=== PATIENT | male | born 1995 | race Caucasian/White ===

== ENCOUNTER 2016-12-28 13:33 | Emergency (ER) | payer MEDICAID ==
[~2016-12-28] VITALS: Ht 175.3 cm; Wt 54.9 kg
[~2016-12-28 13:33] MED LIST: ALBUTEROL-200 PUFFS/ IH; AMOXICOT500 MG PO; AVPAK AZITHROM250 MG PO; AZO-STANDARD95 MG PO; BENZONATATE200 MG PO; CIPRO 500MG TA500 MG PO; CYCLOBENZAPRINE10 M1 OR; FLEXERIL10 MG PO; IBUPROFEN200 MG PO; KENALOG TP; LORTAB 5/3251 TAB PO; LORTAB 5/500 501 TAB PO; MEDROL 4MG TABLE4 MG PO; MEDROL 4MG. DOSE4 MG PO; NEXIUM40 MG PO; NOMEDS *; PHENERGAN 25MG.25 M1 PO; PREDNISONE 10MG10 MG PO; PROAIR HFA0.09 MG/AC INH; PROMETHAZINE D473 ML PO; PROTONIX20 MG PO; PYRIDIUM200 M2 PO; RANITIDINE HCL150 MG PO; SILVADENE CR 4400 GM EX; SULFAMETHOXAZOL1 TA6 PO; TESSALON PERLE100 MG PO; ULTRAM50 MG PO; VALACYCLOVIR HYD1 GM PO; VOLTAREN75 MG PO; VYVANSE40 MG PO; ZITHROMAX Z PA250 MG PO; ZYRTEC 10MG TAB10 MG PO
[2016-12-28] MEDS ORDERED: ACETAMINOPHEN-O1 TAB PO (13:47)
[2016-12-28] MEDS ORDERED: TOVIAZ8 MG PO (13:47)
[2016-12-28] MEDS ORDERED: MIXED AMPHETAMI30 M1 PO (13:47)
--- NOTE | 2016-12-28 14:00 | Emergency Room Report ---
See Addendum History of Present Illness Time Seen by 1350 Presenting Problem in Triage Pt arrived:Walked Presenting Problem:PT REPORTS "SEVERE PAIN IN PRIVATE AREA" THAT BEGAN LASTNIGHT. PT STATES HAD A SCOPE PROCEDURE ON 12/18/16 R/T INTERSTITIAL CYSTITIS. PT STATES GENITAL AREA HAS BEEN SWOLLEN X2 DAYS. 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 Y Clinical Suspician of Infection? N Mental Status: 1 - Regular (Normal Baseline) Sepsis Risk:Severe Sepsis Risk Have you (or family members/close friends) recently traveled outside the [place]? N If Yes, where/when: Have you had exposure to infectious disease within the past month? N TB? Other? Specify: Comment Pt comes to the ED with complaints of severe pain in his private area that started last night. He had a cystoscopy on 12/18/[address] Hannah in [place] due to a diagnosis of Interstitial Cystitis and had bladder distended. He took Cipro for 3 days but last night he had some fever and now has severe pain in the tip of his penis. He is not sexually active and he rarely masturbates. He is on Pyridium and his urine is discolored from that Cardiac Chest Pain Chest pain indicative of cardiac No ALLERGIES Coded Allergies: codeine (Mild, 10/02/16) Home Medications Reported Medications Fesoterodine Fumarate (Toviaz) 8 MG PO QHS DEXTROAMPHETAMINE/AMPHETAMINE (Dextroamp-Amphet ER 30 MG Cap) 30 MG PO DAILY #30 OXYCODONE HCL/ACETAMINOPHEN (Oxycodone-Acetaminophen 5-325) 1 TAB PO Q6HP PRN POST OP PAIN #20 PHENAZOPYRIDINE HCL (Phenazopyridine HCl) 100 MG PO TIDP PRN URINATION #15 History Medical History General CAD? No Angina: No [place]: No Hypertension? No Hyperlipidemia? No CHF? No DVT? No PE? No COPD? No Asthma? Yes Anemia? No GERD? No Gastric ulcers? No GI Bleed? No Hernia? No Thyroid Problems? No Hypothyroidism? No CVA? No Seizures? No Diabetes? No Renal Insuffiency? No End Stage Renal Disease? No UTI? Yes Stones? Yes BPH? No GB Disease: No Nephritic Syndrome? No Asplenia? No Hepatitis? No Sickle Cell Disease? No Arthritis? No Migraines? No Cataracts? No Glaucoma? No MRSA? Yes HIV? No TB? No Anxiety? No Depression? No Cancer? No More? No Additional hx: INTERSTITIAL CYSTITIS Immunization Hx DT/Tetanus Unknown Flu NEVER Pneumonia NEVER Surgical Hx Previous Surgery?Y ENDOSCOPE COLONOSCOPY STENTS FOR KIDNEY STONE RIGHT SHOULDER Family History Family Hx Diabetes Yes CAD No Hypertension Yes Hyperlipidemia No Cancer Yes TB No Social History Smoking Hx Smoker: Current Some Day Smoker Tobacco: Yes Type Cigarettes Packs/day < 1 Pack Alcohol Alcohol: No Review of Systems All Other Systems Reviewed and Negative Constitutional see HPI Genitourinary see HPI. Physical Exam Vital Signs Vital Signs Date Time Temp Pulse Resp B/P Pulse O2 O2 Flow FiO2 Ox Delivery Rate 12/28 1338 98.4 137 24 144/90 98 - WBC >12,000 or <4,000 or 10% bands? 2 or more SIRS Criteria Met? B/P:144/90 MAP:108 Creatinine >2.0? UA output<0.5ml/kg/hr for 2 hrs? Platelet count >100,000? Lactate >2.0mmol/1? INR >1.2 or PTT > than 60 sec? Evidence of Organ Dysfunction? Provider documented clinical suspician of infection? N Sepsis Criteria Count: 3 Sepsis Risk: Severe Sepsis Risk General Appearance normal appearance, WD/WN, no apparent distress Respiratory Status No: respiratory distress. Cardiovascular normal exam, regular rate/rhythm Male Genitalia two small excoriated areas near the urethra. 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 No Results/Orders Laboratory Tests 12/28/16 1417: Sodium 139, Potassium 3.7, Chloride 100, Carbon Dioxide 27, BUN 6 L, Creatinine 1.0, Estimated Creat Clear 90, Estimated GFR (MDRD) 93, Glucose 106, Calcium 9.5 , Total Bilirubin 0.6, AST 15, ALT 20, Alkaline Phosphatase 90, Total Protein 7.5, Albumin 4.4, Globulin 3.1, Albumin/Globulin Ratio 1.4, WBC 6.6, RBC 4.43 L , Hgb 13.8 L, Hct 38.5 L, MCV 86.7, RDW 12.7, Plt Count 286, MPV 5.4 L, Gran % 63.2, Gran # 4.2, Lymphocytes % 31.5, Monocytes % 3.8, Eosinophils % 1.1, Basophils % 0.4, Lymphocytes # 2.1, Monocytes # 0.3, Eosinophils # 0.1, Basophils # 0.0, PUBS MCHC 35.8 H, MCH 31.1 12/28/16 1351: Lactic Acid Cancelled 12/28/16 1350: Urine Color VARGAS, Urine Appearance CLEAR, Urine pH 6.5, Ur Specific [place] 1.015, Urine Protein 1+ H, Urine Ketones NEGATIVE, Urine Blood NEGATIVE, Urine Nitrate POSITIVE H, Urine Bilirubin NEGATIVE, Urine Urobilinogen 4.0, Ur Leukocyte Esterase NEGATIVE, Urine WBC OCC, Urine Bacteria 4+, Urine Mucus 3+, Urine Glucose TRACE H Current Medication Orders Sig/Marlyn Start time Last Medication Dose Route Stop Time Status Admin Sodium Chloride 10 ML PRN PRN 12/28 1400 AC IV 12/29 1350 Orders Procedure Date/time Status URINALYSIS/COMPLETE 12/28 1408 Complete IV SALINE LOCK 12/28 1351 Active CULTURE, BLOOD 12/28 1351 Active CBC WITH AUTO DIFF 12/28 135 Complete CHEM 12 PROFILE 12/28 1351 Complete CULTURE, URINE 12/28 1350 Active Departure Departure Time of Disposition 1501 Disposition DC Home or Self Care(routine) Clinical Impression Primary Impression: Cystitis without hematuria Secondary Impressions: Interstitial cystitis Condition STABLE Referrals Ifrah THRASHER,Norberto Gu (Family): 3 Days-Call Office Patient Instructions Acute Cystitis, DI for Acute Cystitis, DI for Interstitial Cystitis, Interstitial Cystitis Additional Instructions Use antibiotics and followup with PCP in 3 to 4 days to recheck Urine Discharge Counseling Counseled pt/family regarding diagnosis, test results, medications/RX, home care, follow up needs Prescriptions Current Visit Scripts CEFDINIR (Cefdinir) 300 MG PO BID #20 CAP ED Critical Care Critical Care No If Critical Care minutes are documented, the time involved in the performance of seperately reportable procedures was not counted toward critical care time documented. I directly delivered medical care to this critically ill and/or injured patient. Timely evaluation and treatment was necessary to address the significant organ system(s) dysfunction present in this patient. at [id number]
[2016-12-28 14:18] LABS: URINE BILIRUBIN - DIPSTICK NEGATIVE (NEG); URINE BLOOD NEGATIVE (NEG)
[2016-12-28] MEDS ORDERED: PHENAZOPYRIDIN100 M1 PO (14:25)
[2016-12-28 14:31] LABS: HEMOGLOBIN 13.8 g/dL (14.1-18.0); LYMPH # 2.1 K/mm3 (0.7-4.5); LYMPH % 31.5 % (10-50)
[2016-12-28] MEDS ORDERED: CEFDINIR 300MG300 MG PO (15:03)
[2016-12-28 16:21] VITALS: BP 145/100
== END 2016-12-28 16:24 | disposition home or self-care (01) ==
LOC: ER 13:33
PROVIDERS: General Practice
DX: N30.10 Interstitial cystitis (chronic) without hematuria (principal)

== ENCOUNTER 2017-01-25 13:05 | Emergency (ER) | payer MEDICAID ==
[~2017-01-25] VITALS: Ht 175.3 cm; Wt 54.0 kg
[~2017-01-25 13:05] MED LIST changes: +ACETAMINOPHEN-O1 TAB PO; +CEFDINIR 300MG300 MG PO; +MIXED AMPHETAMI30 M1 PO; +PHENAZOPYRIDIN100 M1 PO; +TOVIAZ8 MG PO
[2017-01-25] MEDS ORDERED: ZOLPIDEM 10MG T10 MG PO (13:20)
[2017-01-25] MEDS ORDERED: CYCLOBENZAPRINE10 M1 OR (13:21)
--- NOTE | 2017-01-25 13:57 | RADIOLOGY REPORT PS360 ---
CT HEAD W/O CONTRAST INDICATION: Right-sided facial numbness, previous CT scan of brain 04/04/2014 Routine axial images for brain followed by additional post-processing axial bone window images. Axial CT scanning from the base of the skull through the vertex to evaluate the brain was performed. Subsequent post processing 2-D CT bone windows were submitted to PACS and are useful to evaluate calvarium, visualize portions of paranasal sinuses, mastoids and base of skull. Multiaxial scans are obtained from the base of the skull to the vertex and performed without contrast. The base of the skull appeared normal. The ventricular system was normal. There was no ischemic infarct or bleed and there were no extra-axial fluid collections. The bony calvarium appeared intact. IMPRESSION: Negative noncontrast CT scan of the brain.
--- NOTE | 2017-01-25 14:09 | Emergency Room Report ---
History of Present Illness Time Seen by 1314 Presenting Problem in Triage Pt arrived:Walked Presenting Problem:RIGHT ARM MUSCLE SPASM AND PAIN SINCE THURSDAY AT 1730. ALSO STATES HE HAS NUMBNESS TO THE RIGHT SIDE OF FACE ALSO. HE SAYS HE MAY BE HAVING A STROKE. 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 N Clinical Suspician of Infection? N Mental Status: 1 - Regular (Normal Baseline) Sepsis Risk:Possible Sepsis Risk Have you (or family members/close friends) recently traveled outside the [place]? N If Yes, where/when: Have you had exposure to infectious disease within the past month? N TB? Other? Specify: Comment The patient complains of numbness, weakness and pain in his RIGHT arm and numbness of the RIGHT side of his face. He says that he had been laying on the couch on Thursday night 2 days ago when the symptoms developed. He had been laying for a couple of hours and noticed that his RIGHT hand felt numb, particularly the middle, ring, and small fingers and when he tried to move his arm it was weak from his shoulder down. The numbness improved after a couple of hours and he could move it but then he noticed that he has pain in his RIGHT elbow in the area of the lateral epicondyles whenever he tries to move his hand and wrist. He says an hour after the symptoms developed he developed some numbness in the RIGHT side of his face which has been coming and going, waxing and waning. She' ll disturbance, no speech disturbance. He says his RIGHT leg felt numb for a few seconds this morning, but otherwise his leg is not affected. ALLERGIES Coded Allergies: doxycycline (Intermediate, 01/25/17) codeine (Mild, 10/02/16) Home Medications Reported Medications DEXTROAMPHETAMINE/AMPHETAMINE (Dextroamp-Amphet ER 30 MG Cap) 30 MG PO DAILY #30 Zolpidem Tartrate (Zolpidem 10MG) 10 MG PO QHS #30 Cyclobenzaprine Hcl 10 MG OR PRN PRN MIGRAINES #30 History Medical History General CAD? No Angina: No [place]: No Hypertension? No Hyperlipidemia? No CHF? No DVT? No PE? No COPD? No Asthma? Yes Anemia? No GERD? No Gastric ulcers? No GI Bleed? No Hernia? No Thyroid Problems? No Hypothyroidism? No CVA? No Seizures? No Diabetes? No Renal Insuffiency? No End Stage Renal Disease? No UTI? Yes Stones? Yes BPH? No GB Disease: No Nephritic Syndrome? No Asplenia? No Hepatitis? No Sickle Cell Disease? No Arthritis? No Migraines? No Cataracts? No Glaucoma? No MRSA? Yes HIV? No TB? No Anxiety? No Depression? No Cancer? No More? Yes Additional hx: ADHD INTERSTITIAL CYSTITIS Immunization Hx Ped.Immunizations UTD Yes DT/Tetanus Unknown Flu NEVER Pneumonia NEVER Surgical Hx Previous Surgery?Y ENDOSCOPE COLONOSCOPY STENTS FOR KIDNEY STONE RIGHT SHOULDER CYSTOSCOPE Family History Family Hx Diabetes Yes CAD No Hypertension Yes Hyperlipidemia No Cancer Yes TB No Social History Smoking Hx Smoker: Current Every Day Smoker Tobacco: Yes Type N/A Packs/day N/A Alcohol Alcohol: No Review of Systems All Other Systems Reviewed and Negative Constitutional denies fever Eyes denies blindness, denies blurred vision Musculoskeletal muscle pain (see hpi), denies neck pain Psychiatric/Neurological denies headache, numbness, weakness Physical Exam Vital Signs Vital Signs Date Time Temp Pulse Resp B/P Pulse O2 O2 Flow FiO2 Ox Delivery Rate 01/25 1851 98.1 108 18 131/92 99 01/25 1837 18 01/25 1821 118 22 140/89 97 01/25 1752 120 22 152/87 97 01/25 1658 112 22 142/87 97 01/25 1543 122 22 149/94 97 01/25 1448 100 22 154/103 97 01/25 1400 138 22 157/93 99 01/25 1309 98.2 132 22 149/98 99 General Appearance WD/WN, anxious Eye Exam - bilateral eye normal exam, bilateral eye PERRL, bilateral eye EOMI Ear, Nose, Throat hearing grossly normal, normal ENT inspection Neck normal inspection, non-tender, supple, full range of motion Respiratory Status Yes: trachea midline, chest symmetrical, non tender chest. No: respiratory distress. Lung Sounds bilateral: normal breath sounds, lungs clear. Cardiovascular no peripheral edema, no gallop, no JVD, no murmur, no rub, normal peripheral pulses, tachycardia Peripheral Pulses Pulses normal Yes Gastrointestinal normal bowel sounds, normal exam, non tender, soft, no organomegaly Back normal inspection, no CVA tenderness, no vertebral tenderness Extremities tenderness in the region of his RIGHT elbow lateral epicondyle. 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 Mental status anxious Skin intact, normal color, warm/dry Medical Decision Making LABS/Meds/Orders Pt receiving controlled substance in ED? No Results/Orders Laboratory Tests 01/25/17 1450: Sodium 132 L, Potassium 4.0, Chloride 99, Carbon Dioxide 27, BUN 7, Creatinine 0.8, Estimated Creat Clear 111, Estimated GFR (MDRD) 121, Glucose 107 H, Calcium 9.4, Total Bilirubin 0.7, AST 14 L, ALT 18, Alkaline Phosphatase 75, Total Protein 7.3, Albumin 4.5, Globulin 2.8, Albumin/Globulin Ratio 1.6, TSH 1.35, Thyroxine (T4) 6.8, WBC 6.5, RBC 4.74, Hgb 13.9 L, Hct 41.2 L, MCV 87.0, RDW 12.6, Plt Count 242, MPV 5.4 L, Gran % 66.4, Gran # 4.3, Lymphocytes % 27.7 , Monocytes % 5.0, Eosinophils % 0.7, Basophils % 0.2, Lymphocytes # 1.8, Monocytes # 0.3, Eosinophils # 0.1, Basophils # 0.0, PUBS MCHC 33.6, MCH 29.2 Current Medication Orders Sig/Marlyn Start time Last Medication Dose Route Stop Time Status Admin Ketorolac 0 .STK-MED ONE 01/25 1834 DC Tromethamine .ROUTE Ketorolac 30 MG ONCE ONE 01/25 1800 DC 01/25 Tromethamine IV 01/25 1801 1837 Loperamide HCl 0 .STK-MED ONE 01/25 1614 DC PO Loperamide HCl 2 MG ONCE ONE 01/25 1515 DC 01/25 PO 01/25 1516 1615 Sodium Chloride 10 ML PRN PRN 01/25 1430 DCD IV 01/26 1425 Orders Procedure Date/time Status DIET-NOTHING BY MOUTH 01/25 D Active IV SALINE LOCK 01/25 142 Active THYROID STIMULATING HORMONE 01/25 142 Complete THYROXINE (T4) 01/25 1425 Complete CBC WITH AUTO DIFF 01/25 1425 Complete CHEM 12 PROFILE 01/25 1425 Complete 12 LEAD EKG-ROSASON (INITIAL) 01/25 1355 Active ELECTROCARDIOGRAM REQUEST 01/[address] HEAD REQ 01/25 1323 Complete CM/EKG CM/EKG Comments EKG interpreted by Eduardo Au MD: Rhythm: sinus tachycardia Rate: 139 [place]: normal Ectopy: none Conduction: normal ST Segment Changes: none T Wave Changes: none Q Waves: none No evidence of acute ischemia or injury XRAY/CT/US XRAY/CT/US CT head CT interpretation by discussed w/radiologist CT Results normal/NAD Progress - 3:10 PM: Case discussed with Dr. Zapien, medical secretary receptionist for Dr. Glynn. She does not feel that the hospitalist at [facility] would admit him based on his current findings, but he could be transferred to the emergency department for neurological evaluation. I discussed this with the patient. He says his mother is already in [place] at [facility] and wants him transferred there. I will contact emergency Department at [facility] to try to arrange transfer. I then discussed the case with Dr. Liu, emergency physician at [facility] who states that I must talk to neurology first. I spoke with Dr. Hodges, neurologist on-call, who accepts the patient, but feels he could be admitted for 23 hour observation under the hospitalist. Hospitalist is Dr. Haskins. Departure Departure Disposition DC/XFER from [facility] Clinical Impression Primary Impression: Numbness and tingling of right face Secondary Impressions: Numbness and tingling of right upper extremity, Right arm pain, Right arm weakness Condition STABLE ED Critical Care Critical Care No at [id number]
--- NOTE | 2017-01-25 14:09 | Emergency Room Report ---
History of Present Illness Time Seen by 1314 Presenting Problem in Triage Pt arrived:Walked Presenting Problem:RIGHT ARM MUSCLE SPASM AND PAIN SINCE THURSDAY AT 1730. ALSO STATES HE HAS NUMBNESS TO THE RIGHT SIDE OF FACE ALSO. HE SAYS HE MAY BE HAVING A STROKE. 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 N Clinical Suspician of Infection? N Mental Status: 1 - Regular (Normal Baseline) Sepsis Risk:Possible Sepsis Risk Have you (or family members/close friends) recently traveled outside the [place]? N If Yes, where/when: Have you had exposure to infectious disease within the past month? N TB? Other? Specify: Comment The patient complains of numbness, weakness and pain in his RIGHT arm and numbness of the RIGHT side of his face. He says that he had been laying on the couch on Thursday night 2 days ago when the symptoms developed. He had been laying for a couple of hours and noticed that his RIGHT hand felt numb, particularly the middle, ring, and small fingers and when he tried to move his arm it was weak from his shoulder down. The numbness improved after a couple of hours and he could move it but then he noticed that he has pain in his RIGHT elbow in the area of the lateral epicondyles whenever he tries to move his hand and wrist. He says an hour after the symptoms developed he developed some numbness in the RIGHT side of his face which has been coming and going, waxing and waning. She' ll disturbance, no speech disturbance. He says his RIGHT leg felt numb for a few seconds this morning, but otherwise his leg is not affected. ALLERGIES Coded Allergies: doxycycline (Intermediate, 01/25/17) codeine (Mild, 10/02/16) Home Medications Reported Medications DEXTROAMPHETAMINE/AMPHETAMINE (Dextroamp-Amphet ER 30 MG Cap) 30 MG PO DAILY #30 Zolpidem Tartrate (Zolpidem 10MG) 10 MG PO QHS #30 Cyclobenzaprine Hcl 10 MG OR PRN PRN MIGRAINES #30 History Medical History General CAD? No Angina: No [place]: No Hypertension? No Hyperlipidemia? No CHF? No DVT? No PE? No COPD? No Asthma? Yes Anemia? No GERD? No Gastric ulcers? No GI Bleed? No Hernia? No Thyroid Problems? No Hypothyroidism? No CVA? No Seizures? No Diabetes? No Renal Insuffiency? No End Stage Renal Disease? No UTI? Yes Stones? Yes BPH? No GB Disease: No Nephritic Syndrome? No Asplenia? No Hepatitis? No Sickle Cell Disease? No Arthritis? No Migraines? No Cataracts? No Glaucoma? No MRSA? Yes HIV? No TB? No Anxiety? No Depression? No Cancer? No More? Yes Additional hx: ADHD INTERSTITIAL CYSTITIS Immunization Hx Ped.Immunizations UTD Yes DT/Tetanus Unknown Flu NEVER Pneumonia NEVER Surgical Hx Previous Surgery?Y ENDOSCOPE COLONOSCOPY STENTS FOR KIDNEY STONE RIGHT SHOULDER CYSTOSCOPE Family History Family Hx Diabetes Yes CAD No Hypertension Yes Hyperlipidemia No Cancer Yes TB No Social History Smoking Hx Smoker: Current Every Day Smoker Tobacco: Yes Type N/A Packs/day N/A Alcohol Alcohol: No Review of Systems All Other Systems Reviewed and Negative Constitutional denies fever Eyes denies blindness, denies blurred vision Musculoskeletal muscle pain (see hpi), denies neck pain Psychiatric/Neurological denies headache, numbness, weakness Physical Exam Vital Signs Vital Signs Date Time Temp Pulse Resp B/P Pulse O2 O2 Flow FiO2 Ox Delivery Rate 01/25 1851 98.1 108 18 131/92 99 01/25 1837 18 01/25 1821 118 22 140/89 97 01/25 1752 120 22 152/87 97 01/25 1658 112 22 142/87 97 01/25 1543 122 22 149/94 97 01/25 1448 100 22 154/103 97 01/25 1400 138 22 157/93 99 01/25 1309 98.2 132 22 149/98 99 General Appearance WD/WN, anxious Eye Exam - bilateral eye normal exam, bilateral eye PERRL, bilateral eye EOMI Ear, Nose, Throat hearing grossly normal, normal ENT inspection Neck normal inspection, non-tender, supple, full range of motion Respiratory Status Yes: trachea midline, chest symmetrical, non tender chest. No: respiratory distress. Lung Sounds bilateral: normal breath sounds, lungs clear. Cardiovascular no peripheral edema, no gallop, no JVD, no murmur, no rub, normal peripheral pulses, tachycardia Peripheral Pulses Pulses normal Yes Gastrointestinal normal bowel sounds, normal exam, non tender, soft, no organomegaly Back normal inspection, no CVA tenderness, no vertebral tenderness Extremities tenderness in the region of his RIGHT elbow lateral epicondyle. 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 Mental status anxious Skin intact, normal color, warm/dry Medical Decision Making LABS/Meds/Orders Pt receiving controlled substance in ED? No Results/Orders Laboratory Tests 01/25/17 1450: Sodium 132 L, Potassium 4.0, Chloride 99, Carbon Dioxide 27, BUN 7, Creatinine 0.8, Estimated Creat Clear 111, Estimated GFR (MDRD) 121, Glucose 107 H, Calcium 9.4, Total Bilirubin 0.7, AST 14 L, ALT 18, Alkaline Phosphatase 75, Total Protein 7.3, Albumin 4.5, Globulin 2.8, Albumin/Globulin Ratio 1.6, TSH 1.35, Thyroxine (T4) 6.8, WBC 6.5, RBC 4.74, Hgb 13.9 L, Hct 41.2 L, MCV 87.0, RDW 12.6, Plt Count 242, MPV 5.4 L, Gran % 66.4, Gran # 4.3, Lymphocytes % 27.7 , Monocytes % 5.0, Eosinophils % 0.7, Basophils % 0.2, Lymphocytes # 1.8, Monocytes # 0.3, Eosinophils # 0.1, Basophils # 0.0, PUBS MCHC 33.6, MCH 29.2 Current Medication Orders Sig/Marlyn Start time Last Medication Dose Route Stop Time Status Admin Ketorolac 0 .STK-MED ONE 01/25 1834 DC Tromethamine .ROUTE Ketorolac 30 MG ONCE ONE 01/25 1800 DC 01/25 Tromethamine IV 01/25 1801 1837 Loperamide HCl 0 .STK-MED ONE 01/25 1614 DC PO Loperamide HCl 2 MG ONCE ONE 01/25 1515 DC 01/25 PO 01/25 1516 1615 Sodium Chloride 10 ML PRN PRN 01/25 1430 DCD IV 01/26 1425 Orders Procedure Date/time Status DIET-NOTHING BY MOUTH 01/25 D Active IV SALINE LOCK 01/25 142 Active THYROID STIMULATING HORMONE 01/25 142 Complete THYROXINE (T4) 01/25 1425 Complete CBC WITH AUTO DIFF 01/25 1425 Complete CHEM 12 PROFILE 01/25 1425 Complete 12 LEAD EKG-ROSASON (INITIAL) 01/25 1355 Active ELECTROCARDIOGRAM REQUEST 01/[address] HEAD REQ 01/25 1323 Complete CM/EKG CM/EKG Comments EKG interpreted by Eduardo Au MD: Rhythm: sinus tachycardia Rate: 139 [place]: normal Ectopy: none Conduction: normal ST Segment Changes: none T Wave Changes: none Q Waves: none No evidence of acute ischemia or injury XRAY/CT/US XRAY/CT/US CT head CT interpretation by discussed w/radiologist CT Results normal/NAD Progress - 3:10 PM: Case discussed with Dr. Zapien, personal protection specialist for Dr. Glynn. She does not feel that the hospitalist at [facility] would admit him based on his current findings, but he could be transferred to the emergency department for neurological evaluation. I discussed this with the patient. He says his mother is already in [place] at [facility] and wants him transferred there. I will contact emergency Department at [facility] to try to arrange transfer. I then discussed the case with Dr. Liu, emergency physician at [facility] who states that I must talk to neurology first. I spoke with Dr. Hodges, neurologist on-call, who accepts the patient, but feels he could be admitted for 23 hour observation under the hospitalist. Hospitalist is Dr. Haskins. Departure Departure Disposition DC/XFER from ER to [facility] Clinical Impression Primary Impression: Numbness and tingling of right face Secondary Impressions: Numbness and tingling of right upper extremity, Right arm pain, Right arm weakness Condition STABLE ED Critical Care Critical Care No at 3952
--- OUTSIDE RECORDS SUMMARY | 2017-01-25 14:10 | External Medical Summary Rpt ---
Author Author LALO [facility] Organization [facility] Address Unknown Phone Unavailable Care Team Providers Care Director Of Exhibit Development Name Role Phone SUNDAR VARELA PCP [phone] Encounter LALO FINCH [id number] Date(s): 12/16/16 - 12/18/16 [facility] [address] 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 Vital Signs Most recent 1 2 3 to oldest [Reference Range]: Temperature Temporal artery Temporal artery Temporal artery Source scanning (12/18/16 scanning (12/18/16 scanning (12/18/16 11:53 AM) 10:56 AM) 9:59 AM) Temperature Fahrenheit Fahrenheit Fahrenheit Mode (12/18/16 11:53 AM) (12/18/16 11:45 AM) (12/18/16 10:56 AM) Temperature, 98.1 Deg F 98.0 Deg F 98.2 Deg F Fahrenheit (12/18/16 11:53 AM) (12/18/16 11:45 AM) (12/18/16 10:56 AM) [96.8-99.7 Deg F] Clinical 36.7 Deg C 36.7 Deg C 36.8 Deg C Temperature, (12/18/16 11:53 AM) (12/18/16 11:45 AM) (12/18/16 10:56 AM) C Heart Rate, 87 bpm Apical (12/18/16 9:59 AM) [60-100 bpm] Heart Rate 91 bpm 92 bpm 103 bpm Monitored (12/18/16 11:53 AM) (12/18/16 11:45 AM) *HI* [60-100 bpm] (12/18/16 11:30 AM) Respiratory 18 Breaths/Min 16 Breaths/Min 16 Breaths/Min Rate [14-20 (12/18/16 11:53 AM) (12/18/16 11:45 AM) (12/18/16 11:30 AM) Breaths/Min] Blood Arm, left upper Pressure (12/18/16 9:59 AM) Location Blood 142/80 mmHg 137/83 mmHg 137/83 mmHg Pressure *HI* (12/18/16 11:45 AM) (12/18/16 11:30 AM) [90-140/60-9 (12/18/16 11:53 AM) 0 mmHg] Mean 106 106 88 Arterial (12/18/16 11:45 AM) (12/18/16 11:30 AM) (12/18/16 11:15 AM) Pressure (MAP)-BMDI Oxygen 96 % 96 % 100 % Saturation (12/18/16 11:53 AM) (12/18/16 11:45 AM) (12/18/16 11:30 AM) [94-100 %] Oxygen Room air Room air Room air Therapy Mode (12/18/16 11:53 AM) (12/18/16 11:45 AM) (12/18/16 11:30 AM) Oxygen Flow 2 Liter/Min 2 Liter/Min 2 Liter/Min Rate (12/18/16 11:10 AM) (12/18/16 11:05 AM) (12/18/16 11:00 AM) Height Stated Source (12/18/16 9:59 AM) Height Entry Weir Format (12/18/16 9:59 AM) Height/Lengt 5 ft h, GEORGIAN (12/18/16 9:59 AM) (ft) Height/Lengt 9 Inch h GEORGIAN (12/18/16 9:59 AM) CLINICALHEIG 175.26 cm HT (12/18/16 9:59 AM) Weight Standing scale Source (12/18/16 9:59 AM) Weight Entry Weir Format (12/18/16 9:59 AM) Weight 121 lb [place] lb (12/18/16 9:59 AM) CLINICALWEIG 55 kg HT (12/18/16 9:59 AM) Body Surface 1.67 m2 Area (BSA) (12/18/16 9:59 AM) Body Mass 17.9 kg/m2 Index *<LLOW* [19.0-24.0 (12/18/16 9:59 AM) kg/m2] [place] Body 70 kg Weight (12/18/16 9:59 AM) Problem List Condition Effective Status Health Informant Dates Status ADHD Active (attention deficit hyperactivit y disorder)(Co nfirmed) GERD Active (gastroesoph ageal reflux disease)(Con firmed) Rotator cuff Active injury(Confi rmed)1 Migraines(Co Active nfirmed) Sleep Active difficulties (Confirmed) 1right Allergies, Adverse Reactions, Alerts Substance Reaction Severity Status codeine shortness of breath Active doxycycline shortness of breath Active Medications amphetamine-dextroamphetamine (Adderall 30 mg oral tablet)1 Tab, Oral, Every Day, Refills: 0 eszopiclone (Lunesta 3 mg oral tablet)1 Tab, Oral, At Bedtime, As Needed, sleep, Refills: 0 famotidine (Pepcid)1 Tab, Oral, Every Day, As Needed, reflux, Refills: 0 gabapentin (gabapentin 300 mg oral capsule) 1 Cap, Oral, Three Times A Day, Refills: 0 Results No data available for this section Immunizations No data available for this section Procedures Procedure Date Related Body Site Diagnosis colonoscopy cystoscopy right rotator cuff repair Social History Social History Response Type Tobacco Use in Last 12 Months: Cigarettes. Packs/Tins Daily: 0.25. Last Used: pt states using an E-cigarette most of the time. Assessment and Plan No data available for this section Hospital Discharge Instructions No data available for this section
--- OUTSIDE RECORDS SUMMARY | 2017-01-25 14:10 | External Medical Summary Rpt ---
Author Author LALO [facility] Organization [facility] Address Unknown Phone Unavailable Care Team Providers Care Drilling Engineering Manager Name Role Phone SUNDAR VARELA PCP [phone] Encounter LALO FINCH [id number] Date(s): 12/16/16 - 12/18/16 [facility] [address] [place] [address]- Discharge Disposition: OP Self Care or Home [...] Stated Source (12/18/16 9:59 AM) Height Entry Gervais Format (12/18/16 9:59 AM) Height/Lengt 5 ft h, PALAUAN (12/18/16 9:59 AM) (ft) Height/Lengt 9 Inch h PALAUAN (12/18/16 9:59 AM) CLINICALHEIG 175.26 cm HT (12/18/16 9:59 AM) Weight Standing scale Source (12/18/16 9:59 AM) Weight Entry Gervais Format (12/18/16 9:59 AM) Weight 121 lb Martiniquais lb (12/18/16 9:59 AM) CLINICALWEIG 55 kg HT (12/18/16 9:59 AM) Body Surface 1.67 m2 Area (BSA) (12/18/16 9:59 AM) Body Mass 17.9 kg/m2 Index *<LLOW* [19.0-24.0 (12/18/16 9:59 AM) kg/m2] [place] Body 70 kg Weight (12/18/16 9:59 AM) [...]
--- OUTSIDE RECORDS SUMMARY | 2017-01-25 14:18 | External Medical Summary Rpt ---
Author Author , Organization [employer] Address Unknown Phone Unavailable Care Team Providers Care Night Filler Name Role Phone AYAD MENSAH, Unavailable Unavailable AYAD MENSAH JR, CHARLES F, Unavailable Unavailable TRAE ZAMORA JR ART, ART Unavailable Unavailable CHEN, CHEN Unavailable Unavailable CHEN ALL, CHEN ALL Unavailable Unavailable [facility] Unavailable Unavailable SERVICE, [facility] Unavailable Unavailable SERVICE, [facility], ZOHN N, Unavailable Unavailable [facility], ZOHN N MALU BRENDAN, Unavailable Unavailable MALU BRENDAN FRACISCO TORIBIOLAS, Unavailable Unavailable MALU, ABELARDO [facility], Unavailable Unavailable [facility] [place]available Un[place], [facility] [place] [facility] [place] [facility] [facility] BEHZAD LESLY, Unavailable Unavailable BEHZAD LESLY BEHZAD LESLY, Unavailable Unavailable [facility] Unavailable [facility], [facility] FRYMAN, FRYMAN Unavailable Unavailable FRYMAN EUG, FRYMAN Unavailable Unavailable EUG AKILA, AKILA Unavailable Unavailable AKILA NOLAN, AKILA Unavailable Unavailable NOLAN AKILA NOLAN, AKILA Unavailable Unavailable NOLAN MARITA RG S, Unavailable Unavailable MARITA RG ARNOLD H, Unavailable Unavailable JOSE MARIA CHEATHAM [facility] Unavailable Unavailable [facility], [facility] OCHOA AGUILAR, OCHOA AGUILAR Unavailable Unavailable [facility], Unavailable Unavailable [facility] Un[facility] Un[facility], [facility] Unavailable Unavailable MEDICAL G, [facility] Ayad Mesa MD, Unavailable Unavailable VELIA Jett MD, , Unavailable Unavailable [facility] GUIDO PABLO, Unavailable Unavailable GUIDO PABLO MD, Unavailable Unavailable Anne Rg MD [facility] Unavailable Unavailable SERVICES, [facility] LAB[facility], LABS Unavailable Unavailable LABS, LABS Unavailable Unavailable DRAKE MCGREGOR, Unavailable Unavailable DRAKE MCGREGOR MULBERRY, SANDRA T, Unavailable Unavailable MULBERRY, SANDRA T NADIG VID, NADIG VID Unavailable Unavailable MORGAN BELL, Unavailable Unavailable MORGAN BELL [facility] R [facility], Unavailable Unavailable DOMINQIUE R [facility] DOMINI[facility] R [facility], Unavailable Unavailable [facility] PAVEZ, PAVEZ Unavailable Unavailable AMBROSIO HUITRON, Unavailable Unavailable [facility] Unavailable Unavailable [facility] Unavailable Unavailable [id number] [id number], [facility] [id number] [address] [id number] ABELARDO GUDINO, Unavailable Unavailable ABELARDO GUDINO, Unavailable Unavailable ADELE NOELN, TAMANNA LEN MAT, Unavailable Unavailable LEN MAT HANEY DON, Unavailable Unavailable HANEY DON HANEY DON, Unavailable Unavailable HANEY DON HANEY, DON R, Unavailable Unavailable HANEY, DON R NORMAN DOLAN, Unavailable Unavailable NORMAN DOLAN, ROSS NEWSOME Unavailable Unavailable [facility], Unavailable Unavailable [facility] Unavailable Unavailable [address]591, [id number] DYLON DE LA FUENTE III, Unavailable Unavailable DYLON DE LA FUENTE III, E MD, Unavailable Unavailable Home GODFREY MD Purpose Continuity of Care Document - 05-08-2009 through 2016 Problems Code Diagnosis DOS Provider Status N3020 OTHER 12-16-2016 [facility] CHRONIC HEALTH CYSTITIS MEDICAL G WITHOUT HEMATURIA N419 INFLAMMATOR 12-16-2016 [facility] Y DISEASE HEALTH OF PROSTATE MEDICAL G UNSPECIFIED R319 HEMATURIA 12-02-2016 [facility] UNSPECIFIED HEALTH MEDICAL G N3001 ACUTE 10-02-2016 [facility] HEMATURIA N3091 CYSTITIS 10-02-2016 [facility] HEMATURIA R1033 PERIUMBILIC 10-02-2016 [facility] R300 DYSURIA 10-02-2016 [facility] Z5181 ENCOUNTER 09-05-2016 [facility] FOR THERAPEUTIC DRUG LEVEL MONITORING [id number] OTHER LONG 09-05-2016 [facility] LABS TERM CURRENT DRUG THERAPY Z0000 ENCOUNTER 09-04-2016 [facility] MED EXAM INC W/O ABNORMAL FIND M545 LOW BACK 09-03-2016 [facility] INC M5432 SCIATICA 08-22-2016 [facility] LEFT SIDE PHYSICIANS GROUP J0100 ACUTE 08-14-2016 [facility] MAXILLARY PHYSICIANS SINUSITIS GROUP UNSPECIFIED R509 FEVER 08-14-2016 [facility] UNSPECIFIED PHYSICIANS GROUP Z23 ENCOUNTER 08-14-2016 [facility] FOR PHYSICIANS IMMUNIZATIO GROUP N [id number] MIGRAINE 08-12-2016 [facility] UNS NOT PHYSICIANS INTRACT W/O GROUP STATUS MIGRAINOSUS R042 HEMOPTYSIS 08-12-2016 [facility] G4701 INSOMNIA 07-23-2016 [facility] DUE TO PHYSICIANS MEDICAL GROUP CONDITION G4710 HYPERSOMNIA 07-23-2016 [facility] UNSPECIFIED INC G4459 OTHER 07-14-2016 [facility] COMPLICATED PHYSICIANS HEADACHE GROUP SYNDROME G4700 INSOMNIA 07-14-2016 [facility] UNSPECIFIED PHYSICIANS GROUP [id number] ACUTE 07-10-2016 [facility] POST-TRAUMA PHYSICIANS TIC GROUP HEADACHE INTRACTABLE R000 TACHYCARDIA 06-03-2016 [facility] PHYSICIANS UNSPECIFIED GROUP R9431 ABNORMAL 06-03-2016 [facility] [place] [facility] 788.0 788.0 RENAL 05-17-2013 Anthony COLIC [facility] 785.0 785.0 05-11-2013 Anthony TACHYCARDIA [facility] 909.5 909.5 LATE 05-11-2013 [facility] DRUG,MEDICI NAL/BIOLOG SUBSTANCE E849.0 E849.0 05-11-2013 Anthony ACCIDENT IN [facility] E932.0 E932.0 ADV 05-11-2013 [facility] OIDS E945.7 E945.7 ADV 05-11-2013 [facility] 535.00 535.00 04-19-2013 [facility] W/O MENTION OF HEMORRHAGE 276.52 276.52 01-22-2013 Anthony HYPOVOLEMIA [facility] 81134 UNSPECIFIED 03-24-2012 [facility] VIRAL DON WARTS 0088 INTESTINAL 02-20-2012 DOMINIQUE R INFECTION H DUE TO OTHER ORGANISM NEC 77174 PAIN IN 02-08-2012 [place] [facility] REGION 7260 ADHESIVE 02-08-2012 AKILA NOLAN CAPSULITIS OF SHOULDER 92581 UNSPEC 02-08-2012 [facility]END INC ONS SHOULDER REGION 4779 ALLERGIC 01-05-2012 [facility] RHINITIS DON CAUSE UNSPECIFIED 5368 DYSPEPSIA&O 01-05-2012 [facility] THER SPEC DON DISORDERS FUNCTION STOMACH 4619 ACUTE 12-12-2011 [facility] SINUSITIS, LESLY UNSPECIFIED 7840 HEADACHE 12-12-2011 [facility] LESLY 4618 OTHER ACUTE 10-27-2011 [facility] SINUSITIS DON 4660 ACUTE 07-25-2011 [facility] BRONCHITIS DON 97963 SHORTNESS 07-22-2011 [facility] OF BREATH DON 7862 COUGH 07-22-2011 [facility] DON 01458 EPISODIC 07-15-2011 [facility] TENSION DON TYPE HEADACHE 7089 UNSPECIFIED 07-04-2011 [facility] URTICARIA DON 6989 UNSPECIFIED 07-01-2011 [facility] PRURITIC DON DISORDER 7821 RASH AND 07-01-2011 [facility] OTHER DON NONSPECIFIC SKIN ERUPTION 4659 ACUTE URIS 05-21-2011 [facility] OF DON UNSPECIFIED SITE 25275 HORDEOLUM 04-18-2011 [facility] EXTERNUM DON 18085 PAIN IN 03-01-2011 [place] [facility] LOWER LEG IM[facility]ING [facility] 9596 INJURY 03-01-2011 [facility] OTHER AND [facility]BULANCE UNSPECIFIED SERVICE HIP AND THIGH 3829 UNSPECIFIED 01-08-2011 [facility] OTITIS DON MEDIA 26147 REGULAR 12-09-2010 [facility] 7061 OTHER ACNE 10-21-2010 [facility] DON 7245 UNSPECIFIED 10-21-2010 [facility] BACKACHE DON 08177 STOMATITIS 09-11-2010 [facility] AND DON MUCOSITIS UNSPECIFIED 920 CONTUSION 08-21-2010 [place] OF FACE MEDICAL SCALP AND IMAGING ASS NECK EXCEPT EYE 34671 HEAD 08-21-2010 [facility] INJURY, DON UNSPECIFIED 06954 UNSPECIFIED 07-08-2010 [facility] INFECTION SERVICES IN CCE & UNS SITE V202 ROUTINE 04-29-2010 [facility] INFANT OR DON CHILD HEALTH CHECK 6929 CONTACT 04-12-2010 [facility], DERMATITIS& DON R OTHER [place] DUE UNSPEC CAUSE 486 PNEUMONIA, 02-14-2010 [facility] UNSPECIFIED SERVICES ASSOCIATES 94370 ASTHMA, 02-14-2010 [facility] U[facility]PECIFIED [facility]GENCY , SERVICES UNSPECIFIED ASSOCIATES STATUS 462 ACUTE 02-04-2010 HANE[place], [place] R [address] FEVER 02-04-2010 [facility], UNSPECIFIED DON R 7224 DEGENERATIO 11-16-2009 [place] N OF FAMILY CERVICAL CHIROPRACTI INTERVERTEB C RAL DISC 36750 DEGEN 11-16-2009 [place] LUMBAR/LUMB FAMILY OSACRAL CHIROPRACTI INTERVERTEB C RAL DISC 7386 ACQUIRED 11-16-2009 [place] DEFORMITY FAMILY OF PELVIS CHIROPRACTI C 7392 NONALLOPATH 11-16-2009 [place] LESION FAMILY OF THORACIC CHIROPRACTI REGION NEC C 5641 IRRITABLE 09-05-2009 [place] [facility] BOWEL SERV SYNDROME FOUNDATIO 63030 ABDOMINAL 09-05-2009 [place] [facility] PA[place], LEFT SERV UPPER FOUNDATIO QUADRANT 13752 NAUSEA WITH 08-19-2009 [place] [facility] VOMITING SERV [facility] 7873 FLATULENCE 08-19-2009 [place] [facility] ERUCTATION SERV AND GAS FOUNDAT[facility] PAIN 81693 OTHER SPEC 08-17-2009 [place] [facility] GASTRITIS SERV WITHOUT FOUND[facility] MENTION HEMORRHAGE 69829 SCHMORLS 08-17-2009 [place] [facility] NODES, SERV LUMBAR FOUNDATIO REGION 7329 UNSPECIFIED 08-17-2009 [place] [facility] SERV OSTEOCHONDR FOUNDATIO OPATHY 58298 LOSS OF 08-17-2009 [place] [facility] WEIGHT [facility] 63227 CHEST PAIN 08-17-2009 [place] [facility] UNSPECIFIED SERV F[place] 82610 VOMITING 08-17-2009 [place] [facility] ALONE [place] [facility] 53977 ABDOMINAL 08-17-2009 [place] [facility] [place] SERV UNSPECIFIED FOUNDATIO SITE 90502 ABDOMINAL 08-17-2009 [place] [facility] SERVICES EPIGASTRIC V1271 PERSONAL 08-17-2009 [place] [facility] H[place]ORY OF SERVICES PEPTIC ULCER DISEASE V161 FM HX 08-17-2009 [place] [facility] MALIGNANT SERV NEOPLASM FOUNDATIO TRACHEA BRONCHUS&[place] [address] UNSPECIFIED 08-16-2009 [place] [facility] CONSTIPATIO FOUNDATIO N 43814 OTHER 08-16-2009 [facility] DISORDER OF INTESTINES 37000 ABDOMINAL 08-16-2009 [place] [facility] [place] RIGHT SERV LOWER FOUNDATIO QUADRANT 2892 NONSPECIFIC 07-25-2009 HANE[facility], [place] [address] ABDOMINAL 07-24-2009 ALLRAN JR, PAIN, TRAE F GENERALIZED 2869 OTHER AND 07-23-2009 ALLRAN JR, UNSPECIFIED TRAE F COAGULATION DEFECTS 74468 PEPTC ULCR 07-22-2009 [facility], UNS DON R ACUT/CHRN W/O HEMOR PERF/OBST 16843 ABDOMINAL 07-22-2009 [place] PAIN, LEFT MEDICAL LOWER IMAGING [facility] 5589 OTH&UNSPEC 07-16-2009 [facility], NONINFECTIO DON R US GASTROENTER ITIS&COLITI S 68635 ACUTE 07-15-2009 [facility]Y WITHOUT SERVICES MENTION OF ASSOCIATES HEMORRHAGE 7398 NONALLOPATH 06-29-2009 [place] LESION FAMILY OF RIB CAGE CHIROPRACTI NEC C 80814 METHICILLIN 06-13-2009 L[place], RESISTANT DON R STAPHYLOCOC CUS AUREUS 6826 CELLULITIS 06-04-2009 [facility], AND ABSCESS DON R OF LEG EXCEPT FOOT 4644 CROUP 06-01-2009 [facility], DON R 460 ACUTE 05-31-2009 [facility] ITIS 9164 HIP THI 05-30-2009 [facility], LEG&ANK DON R INSECT BITE NONVENOMOUS W/O INF N30.10 INTERSTITIA L CYSTITIS (CHRONIC) WITHOUT HEMATURIA N30.90 CYSTITIS, UNSPECIFIED WITHOUT HEMATURIA Allergies, Adverse Reactions, Alerts Type Drug Allergy Adverse Reaction to Substance Substance Reaction Severity Codeine Unknown Unknown Medications Na ND Rx Da Fi Fi Am Da Di Ph RX Ph St me C No te ll ll ou ys ag ar # ys at rm s nt no ma ic us Or Da si cy ia de te s n re d OX 00 04 05 20 5 00 EA Ac YC 40 -1 -[address] ti OD 60 9- 2- 00 00 SI ve ON 51 20 20 48 DE E- 20 17 17 40 AC 5 69 PH ET AR AM MA IN CY OP HE OF N CY 5- NT 32 HI 5 AN A IN C DE 64 04 05 30 30 00 EA Ac XT 72 -1 -[address] ti RO 00 8- 2- 00 00 SI ve AM 13 20 20 48 DE P- 21 17 17 37 AM 0 23 PH PH AR ET MA AM CY IN OF 10 CY NT MG HI AN TA A B IN C YANG 53 04 05 14 7 00 EA Ac LF 74 -1 -[address] ti AM 60 8- 2- 00 00 SI ve ET 27 20 20 48 DE HO 20 17 17 40 XA 5 48 PH ZO AR LE MA -T CY MP OF DS CY NT TA HI BL AN ET A IN C GA 67 04 05 90 30 00 EA Ac BA 87 -1 -[address] ti PE 70 8- 2- 00 00 SI ve NT 22 20 20 47 DE IN 30 17 17 00 5 69 PH 30 AR 0 MA MG CY CA OF PS CY UL NT E HI AN A IN C CY 00 04 05 30 10 00 EA Ac CL 37 -1 -[address] ti OB 80 8- 2- 00 00 SI ve EN 75 20 20 46 DE ZA 11 17 17 42 SD 0 88 PH IN AR E MA 10 CY MG OF CY TA NT BL HI ET AN A IN C PH 42 04 05 15 4 00 EA Ac EN 93 -1 -[address] ti AZ 70 8- 2- 00 00 SI ve OP 70 20 20 48 DE YR 11 17 17 23 ID 0 82 PH IN AR E MA 10 CY 0 MG OF CY TA NT B HI AN A IN C BU 00 04 05 2. 1 00 EA Ac TA 14 -1 -[address] ti LB 31 8- 2- 0 00 SI ve -A 78 20 20 47 DE CE 70 17 17 15 TA 1 80 PH SC AR N- MA CA CY FF OF 50 CY -3 NT 25 HI -4 AN 0 A IN C CE 68 04 05 20 10 00 WA Ac FD 18 -1 -1 .0 00 L- ti IN 00 6- 2- 00 07 MA ve IR 71 20 20 48 RT 16 17 17 25 30 0 71 PH 0 AR MG MA CY CA PS #5 UL 91 E DE 00 04 05 30 30 00 EA Ac XT 22 -1 -[address] ti RO 83 4- 5- 00 00 SI ve AM 06 20 20 48 DE P- 11 17 17 37 AM 1 22 PH PH AR ET MA CY ER OF 30 CY NT MG HI AN CA A P IN C PH 42 04 05 15 4 00 EA Ac EN 93 -0 -[address] ti AZ 70 4- 5- 00 00 SI ve OP 70 20 20 48 DE YR 11 17 17 23 ID 0 82 PH IN AR E MA 10 CY 0 MG OF CY TA NT B HI AN A IN C OX 00 04 05 20 4 00 EA Ac YC 40 -0 -[address] ti OD 60 6- 5- 00 00 SI ve ON 51 20 20 48 DE E- 20 17 17 27 AC 5 67 PH ET AR AM MA IN CY OP HE OF N CY 5- NT 32 HI 5 AN A IN C CI 16 04 05 6. 3 00 EA Ac SD 71 -0 -[address] ti OF 40 6- 5- 0 00 SI ve LO 65 20 20 48 DE XA 20 17 17 27 CI 4 68 PH N AR HC MA L CY 50 0 OF MG CY NT TA HI B AN A IN C ES 51 03 05 30 30 00 EA Ac ZO 07 -3 -[address] ti PI 90 1- 5- 00 00 SI ve CL 41 20 20 47 DE ON 40 17 17 80 E 3 10 PH 3 AR MG MA CY TA BL OF ET CY NT HI AN A IN C GA 67 03 04 90 30 00 EA Ac BA 87 -2 -[address] ti PE 70 0- 4- 00 00 SI ve NT 22 20 20 47 DE IN 30 17 17 00 5 69 PH 30 AR 0 MA MG CY CA OF PS CY UL NT E HI AN A IN C CY 00 03 04 30 10 00 EA Ac CL 37 -2 -[address] ti OB 80 0- 4- 00 00 SI ve EN 75 20 20 46 DE ZA 11 17 17 42 SD 0 88 PH IN AR E MA 10 CY MG OF CY TA NT BL HI ET AN A IN C BU 00 03 04 28 4 00 EA Ac TA 14 -2 -[address] ti LB 31 0- 4- 00 00 SI ve -A 78 20 20 47 DE CE 70 17 17 15 TA 1 80 PH SC AR N- MA CA CY FF OF 50 CY -3 NT 25 HI -4 AN 0 A IN C DE 64 03 04 30 30 00 EA Ac XT 72 -2 -[address] ti RO 00 1- 4- 00 00 SI ve AM 13 20 20 48 DE P- 21 17 17 06 AM 0 31 PH PH AR ET MA AM CY IN OF 10 CY NT MG HI AN TA A B IN C HY 00 03 04 [address] 40 -2 -[address] ti OC 60 1- 4- 00 00 SI ve OD 12 20 20 48 DE ON 30 17 17 06 -A 5 30 PH CE AR TA MA SC CY NO PH OF EN CY NT 5- HI 32 AN 5 A IN C DE 00 03 04 30 30 00 EA Ac XT 22 -1 -[address] ti RO 83 5- 7- 00 00 SI ve AM 06 20 20 47 DE P- 11 17 17 98 AM 1 58 PH PH AR ET MA CY ER OF 30 CY NT MG HI AN CA A P IN C DE 00 03 03 7. 7 00 EA Ac XT 22 -0 -[address] ti RO 83 8- 1- 0 00 SI ve AM 06 20 20 47 DE P- 11 17 17 89 AM 1 81 PH PH AR ET MA CY ER OF 30 CY NT MG HI AN CA A P IN C D- 00 03 03 7. 7 00 EA Ac AM 37 -0 -[address] ti PH 81 1- 4- 0 00 SI ve ET 07 20 20 47 DE AM 20 17 17 80 IN 1 16 PH E AR ER MA CY 15 OF MG CY NT CA HI PS AN UL A E IN C ES 51 03 03 30 30 00 EA Ac ZO 07 -0 -[address] ti PI 90 1- 4- 00 00 SI ve CL 41 20 20 47 DE ON 40 17 17 80 E 3 10 PH 3 AR MG MA CY TA BL OF ET CY NT HI AN A IN C DO 49 02 03 60 30 00 EA Ac XY 88 -2 -[address] ti CY 40 1- 7- 00 00 SI ve CL 72 20 20 47 DE IN 70 17 17 69 E 3 97 PH MO AR NO MA CY 10 0 OF MG CY NT CA HI P AN A IN C ME 29 02 03 30 30 00 EA Ac LO 30 -2 -[address] ti XI 00 1- 7- 00 00 SI ve CA 12 20 20 47 DE M 51 17 17 69 15 0 98 PH AR MG MA CY TA BL OF ET CY NT HI AN A IN C BU 00 02 03 18 3 00 EA Ac TA 14 -1 -[address] ti LB 31 9- 7- 00 00 SI ve -A 78 20 20 47 DE CE 70 17 17 15 TA 1 80 PH SC AR N- MA CA CY FF OF 50 CY -3 NT 25 HI -4 AN 0 A IN C CY 00 02 03 30 10 00 EA Ac CL 37 -1 -[address] ti OB 80 9- 7- 00 00 SI ve EN 75 20 20 46 DE ZA 11 17 17 42 SD 0 88 PH IN AR E MA 10 CY MG OF CY TA NT BL HI ET AN A IN C GA 67 02 03 90 30 00 EA Ac BA 87 -1 -[address] ti PE 70 9- 7- 00 00 SI ve NT 22 20 20 47 DE IN 30 17 17 00 5 69 PH 30 AR 0 MA MG CY CA OF PS CY UL NT E HI AN A IN C DE 64 02 03 30 30 00 EA Ac XT 72 -2 -[address] ti RO 00 1- 7- 00 00 SI ve AM 13 20 20 47 DE P- 21 17 17 70 AM 0 31 PH PH AR ET MA AM CY IN OF 10 CY NT MG HI AN TA A B IN C ES 00 02 03 21 21 00 EA Ac ZO 37 -2 -[address] ti PI 85 1- 7- 00 00 SI ve CL 27 20 20 47 DE ON 00 17 17 70 E 1 32 PH 1 AR MG MA CY TA BL OF ET CY NT HI AN A IN C D- 00 02 03 7. 7 00 EA Ac AM 37 -2 -[address] ti PH 81 1- 7- 0 00 SI ve ET 07 20 20 47 DE AM 10 17 17 70 IN 1 33 PH E AR ER MA CY 10 OF MG CY NT CA HI PS AN UL A E IN C DE 00 02 03 16 8 00 EA Ac XT 22 -1 -[address] ti RO 83 2- 0- 00 00 SI ve AM 05 20 20 47 DE P- 91 17 17 57 AM 1 02 PH PH AR ET MA CY ER OF 10 CY NT MG HI AN CA A P IN C GA 67 01 02 90 30 00 EA Ac BA 87 -2 -[address] ti PE 70 3- 7- 00 00 SI ve NT 22 20 20 47 DE IN 30 17 17 00 5 69 PH 30 AR 0 MA MG CY CA OF PS CY UL NT E HI AN A IN C BU 00 01 02 18 3 00 EA Ac TA 14 -2 -[address] ti LB 31 3- 7- 00 00 SI ve -A 78 20 20 47 DE CE 70 17 17 15 TA 1 80 PH SC AR N- MA CA CY FF OF 50 CY -3 NT 25 HI -4 AN 0 A IN C CY 00 01 02 30 10 00 EA Ac CL 37 -1 -[address] ti OB 80 8- 7- 00 00 SI ve EN 75 20 20 46 DE ZA 11 17 17 42 SD 0 88 PH IN AR E MA 10 CY MG OF CY TA NT BL HI ET AN A IN C TR 16 01 02 9. 3 00 EA Ac AM 71 -2 -[address] ti AD 40 0- 7- 0 00 SI ve OL 48 20 20 47 DE 10 17 17 32 HC 2 83 PH L AR 50 MA CY MG OF TA CY BL NT ET HI AN A IN C DE 64 01 02 30 30 00 EA Ac XT 72 -2 -[address] ti RO 00 1- 7- 00 00 SI ve AM 13 20 20 47 DE P- 21 17 17 32 AM 0 81 PH PH AR ET MA AM CY IN OF 10 CY NT MG HI AN TA A B IN C PH 42 01 02 10 4 00 EA Ac EN 93 -1 -[address] ti AZ 70 9- 7- 00 00 SI ve OP 70 20 20 47 DE YR 21 17 17 31 ID 0 01 PH IN AR E MA 20 CY 0 MG OF CY TA NT B HI AN A IN C CI 16 01 02 14 7 00 EA Ac SD 71 -1 -[address] ti OF 40 9- 7- 00 00 SI ve LO 65 20 20 47 DE XA 20 17 17 31 CI 4 00 PH N AR HC MA L CY 50 0 OF MG CY NT TA HI B AN A IN C HY 00 01 02 9. [address] 60 -2 -[address] ti OC 33 7- 7- 0 00 SI ve OD 89 20 20 47 DE ON 03 17 17 40 -A 2 09 PH CE AR TA MA SC CY NO PH OF EN CY NT 5- HI 32 AN 5 A IN C ZO 16 01 02 7. 7 00 EA Ac LP 71 -1 -[address] ti ID 40 4- 3- 0 00 SI ve EM 62 20 20 47 DE 20 17 17 18 TA 2 89 PH RT AR RA MA TE CY 10 OF CY MG NT HI TA AN BL A ET IN C DE 64 01 02 10 10 00 EA Ac XT 72 -1 -[address] ti RO 00 2- 3- 00 00 SI ve AM 13 20 20 47 DE P- 21 17 17 18 AM 0 90 PH PH AR ET MA AM CY IN OF 10 CY NT MG HI AN TA A B IN C VY 59 01 02 14 14 00 EA Ac VA 41 -1 -[address] ti NS 70 2- 3- 00 00 SI ve E 10 20 20 47 DE 40 41 17 17 18 0 03 PH MG AR MA CA CY PS UL OF E CY NT HI AN A IN C BU 00 01 01 18 3 00 EA Ac TA 14 -0 -[address] ti LB 31 6- 7- 00 00 SI ve -A 78 20 20 47 DE CE 70 17 17 15 TA 1 80 PH SC AR N- MA CA CY FF OF 50 CY -3 NT 25 HI -4 AN 0 A IN C ZO 16 01 01 7. 7 00 EA Ac LP 71 -0 -[address] ti ID 40 6- 7- 0 00 SI ve EM 62 20 20 47 DE 20 17 17 15 TA 2 81 PH RT AR RA MA TE CY 10 OF CY MG NT HI TA AN BL A ET IN C DE 64 01 01 7. 7 00 EA Ac XT 72 -0 -[address] ti RO 00 6- 7- 0 00 SI ve AM 13 20 20 47 DE P- 21 17 17 15 AM 0 82 PH PH AR ET MA AM CY IN OF 10 CY NT MG HI AN TA A B IN C MU 63 12 01 14 7 00 EA Ac CI 82 -2 -[address] ti NE 40 8- 0- 00 00 SI ve X 00 20 20 47 DE ER 83 16 17 03 2 89 PH 60 AR 0 MA MG CY TA OF BL CY ET NT HI AN A IN C VY 59 12 01 16 16 00 EA Ac VA 41 -2 -[address] ti NS 70 8- 0- 00 00 SI ve E 10 20 20 47 DE 40 41 16 17 05 0 17 PH MG AR MA CA CY PS UL OF E CY NT HI AN A IN C CY 00 12 01 30 10 00 EA Ac CL 37 -2 -[address] ti OB 80 1- 3- 00 00 SI ve EN 75 20 20 46 DE ZA 11 16 17 42 SD 0 88 PH IN AR E MA 10 CY MG OF CY TA NT BL HI ET AN A IN C 00 12 01 30 30 00 EA Ac AN 22 -2 -[address] ti FA 82 2- 3- 00 00 SI ve CI 85 20 20 46 DE NE 01 16 17 98 1 97 PH HC AR L MA ER CY 1 OF MG CY NT TA HI BL AN ET A IN C GA 67 12 01 90 30 00 EA Ac BA 87 -2 -[address] ti PE 70 3- 3- 00 00 SI ve NT 22 20 20 47 DE IN 30 16 17 00 5 69 PH 30 AR 0 MA MG CY CA OF PS CY UL NT E HI AN A IN C DE 64 12 01 30 30 00 EA Ac XT 72 -2 -[address] ti RO 00 3- 3- 00 00 SI ve AM 13 20 20 47 DE P- 01 16 17 00 AM 0 75 PH PH AR ET MA AM CY IN E OF 5 CY MG NT HI TA AN B A IN C BU 00 12 01 30 5 00 EA Ac TA 14 -1 -[address] ti LB 31 2- 9- 00 00 SI ve -A 78 20 20 46 DE CE 70 16 17 85 TA 1 68 PH SC AR N- MA CA CY FF OF 50 CY -3 NT 25 HI -4 AN 0 A IN C AM 16 12 01 30 10 00 EA Ac OX 71 -1 -[address] ti IC 40 2- 9- 00 00 SI ve IL 29 20 20 46 DE LI 90 16 17 86 N 4 63 PH 50 AR 0 MA MG CY CA OF PS CY UL NT E HI AN A IN C HY 00 12 01 [address] 60 -1 -[address] ti OC 33 2- 9- 00 00 SI ve OD 89 20 20 46 DE ON 03 16 17 86 -A 2 64 PH CE AR TA MA SC CY NO PH OF EN CY NT 5- HI 32 AN 5 A IN C TR 59 12 01 2. 1 00 EA Ac IA 76 -1 -[address] ti ZO 23 5- 9- 0 00 SI ve LA 71 20 20 46 DE M 80 16 17 90 0. 4 47 PH 25 AR MA MG CY TA OF BL CY ET NT HI AN A IN C VY 59 12 01 14 14 00 EA Ac VA 41 -1 -[address] ti NS 70 5- 9- 00 00 SI ve E 10 20 20 46 DE 40 41 16 17 91 0 14 PH MG AR MA CA CY PS UL OF E CY NT HI AN A IN C HY [address] 40 -1 OM 91 0- Lo OR 31 20 ng PH 23 13 er ON 0 E Ac 2 ti MG ve /M L CA RP UJ CT ON 00 09 0 No DA 64 -1 NS 16 0- Lo ET 08 20 ng RO 02 13 er N 5 HC Ac L ti 4 ve MG /2 ML AL KL 00 09 0 No OR 24 -1 -C 50 0- Lo ON 05 20 ng 80 13 er M2 1 0 Ac TA ti BL ve ET TR 65 09 0 No AM 16 -0 AD 20 3- Lo OL 62 20 ng 71 13 er HC 0 L Ac 50 ti ve MG TA BL ET TA 51 09 0 No MS 07 -0 UL 90 3- Lo OS 29 20 ng IN 42 13 er 0 HC Ac L ti 0. ve 4 MG CA PS UL E KE 00 08 0 No TO 40 -0 RO 93 6- Lo LA 79 20 ng C 50 13 er 30 1 Ac MG ti /M ve L AL SD 00 08 0 No OM 64 -0 ET 11 6- Lo DOSHI 49 20 ng ZI 53 13 er NE 5 Ac 25 ti ve MG /M L AM PU L ON 00 08 0 No DA 64 -0 NS 16 6- Lo ET 08 20 ng RO 02 13 er N 5 HC Ac L ti 4 ve MG /2 ML AL SD 51 08 0 No OM 07 -0 ET 90 6- Lo DOSHI 89 20 ng ZI 52 13 er NE 0H Ac 25 ti MG ve TA BL ET TA KE SO 00 08 0 No DI 40 -0 UM 97 6- Lo 98 20 ng CH 42 13 er LO 0 RI Ac DE ti ve 0. 9% SO AZUCENA TI ON SO 00 08 1 No DI 40 -0 UM 97 5- Lo 98 20 ng CH 30 13 er LO 9 RI Ac DE ti ve 0. 9% SO AZUCENA TI ON Sa 63 08 1 No li 80 -0 ne 70 5- Lo 10 20 ng Fl 07 13 er us 5 h Ac 10 ti ML ve Sy ri ng e SO 00 05 1 No DI 40 -1 UM 97 0- Lo 98 20 ng CH 30 13 er LO 9 RI Ac DE ti ve 0. 9% SO AZUCENA TI ON Sa 63 05 1 No li 80 -1 ne 70 0- Lo 10 20 ng Fl 07 13 er us 5 h Ac 10 ti ML ve Sy ri ng e DI 00 10 10 0 [address] Ac PH 60 -1 -[address] 55 EP ti EN 33 8- 8- 00 SI 51 HE ve HY [address] 03 11 11 AM 2 PH DO IN AR N E MA R 50 CY MG OF CA CY PS NT UL HI E AN A ME 00 10 10 0 [address] Ac TH 78 -1 -[address] 55 EP ti YL 15 8- 8- 00 SI 53 HE ve SD 02 20 20 DE NS ED 20 11 11 NI 7 PH DO SO AR N LO MA R NE CY 4 OF MG CY DO NT SE HI PK AN A LO 45 09 09 2 [address] Ac RA 80 -0 -[address] 99 EP ti TA 20 7- 7- 00 SI 89 HE ve DI 65 20 20 DE NS NE 08 11 11 7 PH DO 10 AR N MA R MG CY TA OF BL ET CY NT HI AN A AM 00 09 09 0 [address] Ac OX 78 -0 -[address] 99 EP ti IC 12 7- 7- 00 SI 88 HE ve IL 61 20 20 DE NS LI 30 11 11 N 5 PH DO 50 AR N 0 MA R MG CY CA OF PS UL CY E NT HI AN A FL 00 04 04 3 [address] Ac UT 05 -2 -[address] 29 EP ti IC 43 7- 7 00 SI 22 HE ve 27 20 20 DE NS ON 09 11 11 E 9 PH DO SD AR N OP MA R CY 50 OF MC G CY SP NT RA HI Y AN A AM 00 04 04 0 [address] Ac OX 78 -2 -[address] 29 EP ti IC 12 7 7 00 SI 21 HE ve IL 61 20 20 DE NS LI 30 11 11 N 5 PH DO 50 AR N 0 MA R MG CY CA OF PS UL CY E NT HI AN A YANG 53 03 03 0 20 10 EA 21 WE Ac LF 74 -3 -[address] 92 HR ti AM 60 1 1- 00 SI 28 MA ve ET 27 20 20 DE N HO 20 11 11 II XA 5 PH I ZO AR WI LE MA LL -T CY IA MP M OF E DS CY TA NT BL HI ET AN A BE 65 02 02 0 15 5 EA 21 GA Ac NZ 16 -2 -[address] 45 IN ti ON 20 SI 34 EY ve AT 53 20 20 DE AT 61 11 11 SC E 0 PH CH 10 AR AE 0 MA L MG CY S CA OF PS UL CY E NT HI AN A AZ 00 02 02 0 6. 6 EA 21 GA Ac IT 09 -2 -[address] 45 IN ti HR 37 8- 8- 0 SI 35 EY ve OM 14 20 20 DE YC 61 11 11 SC IN 8 PH CH AR AE 25 MA L 0 CY S MG OF TA BL CY ET NT HI AN A 00 02 02 5 [address] Ac 06 -0 -[address] 13 EP ti 60 7- 7- 00 SI 38 HE ve 49 20 20 DE NS 45 11 11 5 PH DO AR N MA R CY OF CY NT HI AN A DO 00 02 02 0 [address] Ac XY 14 -0 -[address] 13 EP ti CY 33 7- 7- 00 SI 39 HE ve CL 14 20 20 DE NS IN 20 11 11 E 5 PH DO HY AR N CL MA R AT CY E 10 OF 0 MG CY NT CA HI P AN A CE 00 12 12 0 [address] Ac PH 09 -2 -[address] 58 EP ti AL 33 9- 9- 00 SI 36 HE ve EX 14 20 20 DE NS IN 70 10 10 5 PH DO 50 AR N 0 MA R MG CY CA OF PS UL CY E NT HI AN A NE 00 11 11 4 [address] Ac XI 18 -2 -[address] 17 EP ti UM 65 9- 9- 00 SI 02 HE ve 04 [address] 03 10 10 1 PH DO 40 AR N MA R MG CY CA OF PS UL CY E NT HI AN A NE 00 09 09 3 30 30 EA 19 MU Ac XI 18 -1 -[address] 07 LB ti UM 65 0- 0- 00 SI 27 ER ve 04 [address] 03 10 10 1 PH BR 40 AR IA MA N MG CY T CA OF PS UL CY E NT HI AN A DE 51 07 07 2 [address] Ac SO 67 -3 -[address] 53 EP ti XI 21 0- 0- 00 SI 05 HE ve ME 27 20 20 DE NS TA 00 10 10 SO 1 PH DO NE AR N MA R 0. CY 25 % OF CR EA CY M NT HI AN A ME 00 07 07 0 [address] Ac TH 78 -3 -[address] 53 EP ti YL 15 0- 0- 00 SI 03 HE ve SD 02 20 20 DE NS ED 20 10 10 NI 7 PH DO SO AR N LO MA R NE CY 4 OF MG CY DO NT SE HI PK AN A AZ 59 06 06 6. 5 RI 83 GA Ac IT 76 -0 -0 00 TE 66 IN ti HR 23 3- 3- 0 05 EY ve OM 06 20 20 AI YC 00 10 10 D SC IN 1 PH CH AR AE 25 MA L 0 CY S MG 03 TA 93 BL 8 ET # 03 93 ME 00 06 06 21 6 RI 83 GA Ac TH 60 -0 -0 .0 TE 66 IN ti YL 34 3- 3- 00 06 EY ve SD 59 20 20 AI ED 31 10 10 D SC NI 5 PH CH SO AR AE LO MA L NE CY S 4 03 MG 93 8 DO # SE 03 PK 93 60 06 06 0 [address] Ac 25 -0 -[address] 83 EP ti 80 2- 2- 00 SI 79 HE ve 23 20 20 0 DE NS 91 10 10 6 PH DO AR N MA R CY OF CY NT HI AN A 68 03 03 0 [address] Ac 82 -1 -[address] 75 EP ti 00 2- 2- 00 SI 95 HE ve 06 20 20 DE NS 30 10 10 9 PH DO AR N MA R CY OF CY NT HI AN A LO 45 03 03 3 [address] Ac RA 80 -1 -[address] 75 EP ti TA 20 2- 2- 00 SI 94 HE ve DI 65 20 20 DE NS NE 08 10 10 7 PH DO 10 AR N MA R MG CY TA OF BL ET CY NT HI AN A 60 02 02 00 [address] Ac 25 -0 -[address] 30 EP ti 80 9- 6- 00 SI 34 HE ve 23 20 20 0 DE NS 91 10 10 6 PH DO AR N MA R CY OF CY NT HI AN A LO 45 02 02 00 [address] Ac RA 80 -0 -[address] 29 EP ti TA 20 8- 6- 00 SI 66 HE ve DI 65 20 20 DE NS NE 08 10 10 7 PH DO 10 AR N MA R MG CY TA OF BL CY ET NT HI AN A AM 00 02 02 00 [address] Ac OX 78 -0 -[address] 29 EP ti IC 12 8- 6- 00 SI 65 HE ve IL 61 20 20 DE NS LI 30 10 10 N 5 PH DO 50 AR N 0 MA R MG CY CA OF PS CY UL NT E HI AN A 52 12 12 00 1. 1 EA 15 SH Ac 26 -2 -[address] 67 ti 80 1- 1- 0 SI 61 HI ve 52 20 20 DE DH 10 09 09 AR 1 PH AR DOSHI MA RO CY DOSHI LL OF I CY NT HI AN A FA 00 12 12 00 60 30 WA 70 No Ac MO 17 -0 -1 .0 L- 48 t ti TI 25 6- 7- 00 MA 90 Av ve DI 72 20 20 RT 1 ai NE 96 09 09 la 0 PH bl 40 AR e MA MG CY TA #5 BL 91 ET PO 51 12 12 00 10 30 WA 70 No Ac LY 99 -0 -1 54 L- 48 t ti ET 10 6- 7- .0 MA 90 Av ve HY 45 20 20 00 RT 2 ai LE 75 09 09 la NE 7 PH bl AR e GL MA YC CY OL #5 33 91 50 PO WD 00 11 11 00 [address] Ac 40 -0 -[address] 02 EP ti 62 6- 9- 00 SI 98 HE ve 04 20 20 DE NS 11 09 09 0 PH DO AR N MA R CY OF CY NT HI AN A GE 24 11 11 00 5. [address] Ac NT 20 -0 -[address] 02 EP ti AM 80 6- 9- 0 SI 97 HE ve IC 58 20 20 DE NS IN 06 09 09 0 PH DO 0. AR N 3% MA R CY EY E OF DR HODGSON OP NT S HI AN A 00 11 11 [address] Ac 40 -0 -[address] 96 EP ti 62 3- 9- 00 SI 84 HE ve 04 20 20 DE NS 11 09 09 0 PH DO AR N MA R CY OF CY NT HI AN A 00 09 10 00 [address] Ac 90 -2 -[address] 38 EP ti 42 3- 8- 00 SI 51 HE ve 72 20 20 DE NS 54 09 09 0 PH DO AR N MA R CY OF CY NT HI AN A DE 51 09 09 00 [address] Ac SO 67 -1 -[address] 28 EP ti XI 21 6- 4- 00 SI 96 HE ve ME 27 20 20 DE NS TA 00 09 09 SO 3 PH DO NE AR N MA R 0. CY 25 % OF CR CY EA NT M HI AN A 63 08 09 00 [address] Ac 82 -2 -[address] 99 EP ti 40 5- 4- 00 SI 05 HE ve 05 20 20 DE NS 64 09 09 0 PH DO AR N MA R CY OF CY NT HI AN A 00 09 09 00 20 10 EA 14 MU Ac 90 -1 -[address] 29 LB ti 42 7- 4- 00 SI 95 ER ve 72 20 20 DE RY 54 09 09 0 PH BR AR IA MA N CY T OF CY NT HI AN A 60 08 09 00 [address] Ac 25 -2 -[address] 99 EP ti 80 6- 4- 00 SI 31 HE ve 23 20 20 0 DE NS 91 09 09 6 PH DO AR N MA R CY OF CY NT HI AN A ME 00 09 09 00 [address] Ac TH 78 -1 -[address] 32 EP ti YL 15 8- 4- 00 SI 19 HE ve SD 02 20 20 DE NS ED 20 09 09 NI 7 PH DO SO AR N LO MA R NE CY 4 OF MG CY NT DO HI SE AN PK A 68 08 09 00 [address] Ac 82 -2 -[address] 99 EP ti 00 5- 4- 00 SI 00 HE ve 06 20 20 DE NS 30 09 09 9 PH DO AR N MA R CY OF CY NT HI AN A 60 09 09 00 [address] Ac 25 -1 -[address] 31 EP ti 80 8- 4- 00 SI 06 HE ve 23 20 20 0 DE NS 91 09 09 6 PH DO AR N MA R CY OF CY NT HI AN A 59 09 09 00 8. [address] Ac 31 -1 -[address] 32 EP ti 00 8- 4- 0 SI 20 HE ve 57 20 20 DE NS 92 09 09 0 PH DO AR N MA R CY OF CY NT HI AN A Immunization Name Date Route CVX Reacti Commen Provid Is Given on t er Refuse d IIV3 STONE No VACCIN 2016 JEROD E SPLIT VIRUS 0.5 ML DOSAGE IM USE Vital Signs 05-24-2013 22:45 Name Value Interpretat Reference Comment ion Range Body 97.6 [degF] Temperature BP 72 mm[Hg] Diastolic BP Systolic 121 mm[Hg] Heart 82 /min Rate/Pulse O2% 97 % Respiratory 20 /min Rate 05-24-2013 21:04 Name Value Interpretat Reference Comment ion Range BP 59 mm[Hg] Diastolic BP Systolic 140 mm[Hg] Heart 74 /min Rate/Pulse O2% 98 % Respiratory 20 /min Rate 05-17-2013 23:23 Name Value Interpretat Reference Comment ion Range Body 98.3 [degF] Temperature BP 70 mm[Hg] Diastolic BP Systolic 122 mm[Hg] Heart 82 /min Rate/Pulse O2% 100 % Respiratory 16 /min Rate 05-11-2013 00:03 Name Value Interpretat Reference Comment ion Range Body 98.7 [degF] Temperature BP 72 mm[Hg] Diastolic BP Systolic 136 mm[Hg] Heart 106 /min Rate/Pulse O2% 98 % Respiratory 20 /min Rate 04-19-2013 01:34 Name Value Interpretat Reference Comment ion Range Body 97.9 [degF] Temperature BP 74 mm[Hg] Diastolic BP Systolic 116 mm[Hg] Heart 60 /min Rate/Pulse O2% 98 % Respiratory 20 /min Rate 04-19-2013 01:33 Name Value Interpretat Reference Comment ion Range Body 97.9 [degF] Temperature 04-19-2013 00:03 Name Value Interpretat Reference Comment ion Range BP 68 mm[Hg] Diastolic BP Systolic 113 mm[Hg] Heart 85 /min Rate/Pulse O2% 100 % Respiratory 20 /min Rate 01-22-2013 00:23 Name Value Interpretat Reference Comment ion Range BP 74 mm[Hg] Diastolic BP Systolic 133 mm[Hg] Heart 94 /min Rate/Pulse O2% 100 % Respiratory 18 /min Rate 01-21-2013 22:56 Name Value Interpretat Reference Comment ion Range BP 72 mm[Hg] Diastolic BP Systolic 128 mm[Hg] Heart 89 /min Rate/Pulse O2% 100 % Respiratory 17 /min Rate Results Labs Lab Lab Date Result Refere Interp Status Commen Order Detail nces retati t Range on BASIC METABOLIC PANEL (05-24-2013 22:10) Glucose 117 74-106 complet 013 mg/dL ed Bld-mCn 22:10 c BUN 11 7-18 complet Bld-mCn 013 mg/dL ed c 22:10 Creat 1.1 0.8-1.3 complet SerPl-m 013 mg/dL ed Cnc 22:10 ESTIMAT 80 50-200 complet ED 013 ML/MIN ed CREATIN 22:10 INE CLEARAN CE Sodium 142 136-145 complet SerPl-s 013 mmoL/L ed Cnc 22:10 Potassi 3.4 3.5-5.1 complet um 013 mmoL/L ed SerPl-s 22:10 Cnc Chlorid 106 98-107 complet e 013 mmoL/L ed SerPl-s 22:10 Cnc CO2 --2 28 21.0-32 complet SerPl-s 013 mmoL/L .0 ed Cnc 22:10 Calcium -10-2 8.3 8.5-10. complet 013 mg/dL 1 ed SerPl-m 22:10 Cnc URINALYSIS/COMPLETE (05-24-2013 20:29) URINE 05-24-2 VARGAS YELLOW complet COLOR 013 ed 20:29 URINE 05-24-2 CLEAR CLEAR complet APPEARA 013 ed NCE 20:29 URINE 05-24-2 NEGATIV NEG complet GLUCOSE 013 E ed - 20:29 DIPSTIC K URINE 05-24-2 NEGATIV NEG complet BILIRUB 013 E ed IN - 20:29 DIPSTIC K URINE 05-24-2 NEGATIV NEG complet KETONE 013 E mg/dL ed 20:29 URINE 05-24-2 1.010 1.005-1 complet SPECIFI 013 UNK .030 ed C 20:29 GRAVITY URINE 05-24-2 3+ NEG complet BLOOD 013 ed 20:29 URINE 05-24-2 7.0 UNK 5.0-8.5 complet PH 013 ed 20:29 URINE 05-24-2 2+ NEG complet PROTEIN 013 mg/dL ed - 20:29 DIPSTIC K URINE 05-24-2 2.0 NEG complet UROBILI 013 E.U./dL ed NOGEN - 20:29 DIPSTIC K URINE 05-24-2 POSITIV NEG complet NITRATE 013 E ed - 20:29 DIPSTIC K URINE 05-24-2 TRACE NEG complet LEUK 013 ed ESTERAS 20:29 E URINE 05-24-2 50-100 0 complet RBC 013 rbc/hpf ed 20:29 URINE 10-2 5-10 O complet WBC 013 wbc/hpf ed 20:29 URINE 05-24-2 OCC OCC complet SQUAMOU 013 #/hpf ed S CELLS 20:29 URINE 05-24-2 1+ O complet BACTERI 013 ed A 20:29 URINALYSIS/COMPLETE (05-17-2013 21:58) URINE 05-17-2 YELLOW YELLOW complet COLOR 013 ed 21:58 URINE 05-17-2 CLEAR CLEAR complet APPEARA 013 ed NCE 21:58 URINE 05-17-2 NEGATIV NEG complet GLUCOSE 013 E ed - 21:58 DIPSTIC K URINE 09-03-2 NEGATIV NEG complet BILIRUB 013 E ed IN - 21:58 DIPSTIC K URINE 05-17-2 NEGATIV NEG complet KETONE 013 E mg/dL ed 21:58 URINE 05-17-2 1.020 1.005-1 complet SPECIFI 013 UNK .030 ed C 21:58 GRAVITY URINE 05-17-2 2+ NEG complet BLOOD 013 ed 21:58 URINE 05-17-2 5.5 UNK 5.0-8.5 complet PH 013 ed 21:58 URINE 05-17-2 TRACE NEG complet PROTEIN 013 mg/dL ed - 21:58 DIPSTIC K URINE 05-17-2 0.2 NEG complet UROBILI 013 E.U./dL ed NOGEN - 21:58 DIPSTIC K URINE 05-17-2 NEGATIV NEG complet NITRATE 013 E ed - 21:58 DIPSTIC K URINE 05-17-2 1+ NEG complet LEUK 013 ed ESTERAS 21:58 E URINE 05-17-2 3-5 0 complet RBC 013 rbc/hpf ed 21:58 URINE 05-17-2 3-5 O complet WBC 013 wbc/hpf ed 21:58 URINE 05-17-2 OCC OCC complet SQUAMOU 013 #/hpf ed S CELLS 21:58 URINE 05-17-2 1+ O complet BACTERI 013 ed A 21:58 URINE 05-17-2 2+ NONE complet MUCUS 013 ed 21:58 COMPREHENSIVE METABOLIC PANEL (04-18-2013 23:57) Glucose 91 74-106 complet 013 mg/dL ed Bld-mCn 23:57 c BUN 18 7-18 complet Bld-mCn 013 mg/dL ed c 23:57 Creat 1.0 0.8-1.3 complet SerPl-m 013 mg/dL ed Cnc 23:57 ESTIMAT 92 50-200 complet ED 013 ML/MIN ed CREATIN 23:57 INE CLEARAN CE Sodium 143 136-145 complet SerPl-s 013 mmoL/L ed Cnc 23:57 Potassi 3.5 3.5-5.1 complet um 013 mmoL/L ed SerPl-s 23:57 Cnc Chlorid 107 98-107 complet e 013 mmoL/L ed SerPl-s 23:57 Cnc CO2 -05-2 29 21.0-32 complet SerPl-s 013 mmoL/L .0 ed Cnc 23:57 Calcium 08-05-2 8.9 8.5-10. complet 013 mg/dL 1 ed SerPl-m 23:57 Cnc Prot 05-2 6.9 6.4-8.2 complet SerPl-m 013 gm/dL ed Cnc 23:57 Albumin -05-2 4.2 3.4-5.0 complet 013 gm/dL ed SerPl-m 23:57 Cnc Globuli 05-2 2.7 1.3-3.2 complet n 013 gm/dL ed Ser-mCn 23:57 c Albumin 05-2 1.6 UNK 1.1-1.8 complet /Glob 013 ed SerPl-m 23:57 Rto Bilirub 04-18-2 0.5 0.2-1.0 complet 013 mg/dL ed SerPl-m 23:57 Cnc AST 05-2 11 U/L 15-37 complet SerPl-c 013 ed Cnc 23:57 ALT 05-2 28 U/L 30-65 complet SerPl-c 013 ed Cnc 23:57 ALP 05-2 91 U/L 50-136 complet SerPl-c 013 ed Cnc 23:57 Amylase SerPl-cCnc (04-18-2013 23:57) Amylase 05-2 51 U/L 25-115 complet 013 ed SerPl-c 23:57 Cnc LIPASE (04-18-2013 23:57) LIPASE 04-18-2 99 U/L 73-393 complet 013 ed 23:57 CBC with AUTO DIFF (04-18-2013 23:57) WBC # -05-2 6.3 4.5-13. complet Bld 013 K/MM3 0 ed Auto 23:57 RBC # 05-2 4.79 4.6-6.2 complet Bld 013 M/mm3 ed Auto 23:57 Hgb 04-18-2 14.1 14.1-18 complet Bld-mCn 013 g/dL .0 ed c 23:57 Hct Fr 41.1 % 42.0-52 complet Bld 013 .0 ed 23:57 MCV RBC 08-05-2 85.8 fl 82.2-97 complet 013 .8 ed 23:57 MCH RBC 08-05-2 29.5 pg 27-31.2 complet Qn 013 ed Auto 23:57 MEAN 08-05-2 34.3 31.8-35 complet CORPUSC 013 g/dl .4 ed ULAR 23:57 HGB CONC RDW RBC 08-05-2 12.8 % 11.5-17 complet Auto 013 .5 ed 23:57 Platele 08-05-2 186 142-424 complet t Bld 013 K/mm3 ed Ql 23:57 Manual MEAN -05-2 7.4 fl 7.4-10. complet PLATELE 013 4 ed T 23:57 VOLUME Granulo 08-05-2 55.4 % 37.0-80 complet cytes 013 .0 ed Fr Bld 23:57 Auto LYMPH % 08-05-2 40.1 % 10-50 complet 013 ed 23:57 Monocyt 08-05-2 3.4 % 1.7-9.3 complet es Fr 013 ed Bld 23:57 Auto Eosinop 08-05-2 0.8 % 0.1-12. complet hil Fr 013 0 ed Bld 23:57 Auto Basophi 08-05-2 0.3 % 0.1-2.0 complet ls Fr 013 ed Bld 23:57 Auto Granulo 08-05-2 3.5 1.3-8.0 complet cytes # 013 K/mm3 ed Bld 23:57 Auto Lymphoc 08-05-2 2.5 0.7-4.5 complet ytes Fr 013 K/mm3 ed Bld 23:57 Auto Monocyt 08-05-2 0.2 0.1-1.0 complet es # 013 K/mm3 ed Bld 23:57 Auto Eosinop 08-05-2 0.1 0.0-0.4 complet hil # 013 K/mm3 ed Bld 23:57 Auto Basophi 08-05-2 0.0 0-0.2 complet ls # 013 K/MM3 ed Bld 23:57 Auto URINALYSIS/COMPLETE (04-18-2013 23:25) URINE -05-2 YELLOW YELLOW complet COLOR 013 ed 23:25 URINE -05-2 CLEAR CLEAR complet APPEARA 013 ed NCE 23:25 URINE 08-05-2 NEGATIV NEG complet GLUCOSE 013 E ed - 23:25 DIPSTIC K URINE 08-05-2 NEGATIV NEG complet BILIRUB 013 E ed IN - 23:25 DIPSTIC K URINE 08-05-2 NEGATIV NEG complet KETONE 013 E mg/dL ed 23:25 URINE 08-05-2 1.015 1.005-1 complet SPECIFI 013 UNK .030 ed C 23:25 GRAVITY URINE 08-05-2 NEGATIV NEG complet BLOOD 013 E ed 23:25 URINE 08-05-2 6.0 UNK 5.0-8.5 complet PH 013 ed 23:25 URINE 08-05-2 NEGATIV NEG complet PROTEIN 013 E mg/dL ed - 23:25 DIPSTIC K URINE 08-05-2 0.2 NEG complet UROBILI 013 E.U./dL ed NOGEN - 23:25 DIPSTIC K URINE 08-05-2 NEGATIV NEG complet NITRATE 013 E ed - 23:25 DIPSTIC K URINE 08-05-2 NEGATIV NEG complet LEUK 013 E ed ESTERAS 23:25 E URINE 08-05-2 OCC O complet WBC 013 wbc/hpf ed 23:25 URINE 08-05-2 OCC OCC complet SQUAMOU 013 #/hpf ed S CELLS 23:25 BASIC METABOLIC PANEL (01-21-2013 23:20) Glucose 74 74-106 complet 013 mg/dL ed Bld-mCn 23:20 c BUN 16 7-18 complet Bld-mCn 013 mg/dL ed c 23:20 Creat 1.2 0.8-1.3 complet SerPl-m 013 mg/dL ed Cnc 23:20 ESTIMAT 76 50-200 complet ED 013 ML/MIN ed CREATIN 23:20 INE CLEARAN CE Sodium 140 136-145 complet SerPl-s 013 mmoL/L ed Cnc 23:20 Potassi 3.8 3.5-5.1 complet um 013 mmoL/L ed SerPl-s 23:20 Cnc Chlorid 104 98-107 complet e 013 mmoL/L ed SerPl-s 23:20 Cnc CO2 29 21.0-32 complet SerPl-s 013 mmoL/L .0 ed Cnc 23:20 Calcium 05-10-2 9.3 8.5-10. complet 013 mg/dL 1 ed SerPl-m 23:20 Cnc CBC with AUTO DIFF (01-21-2013 23:20) WBC # 05-10-2 9.3 4.5-13. complet Bld 013 K/MM3 0 ed Auto 23:20 RBC # 05-10-2 4.90 4.6-6.2 complet Bld 013 M/mm3 ed Auto 23:20 Hgb 05-10-2 14.1 14.1-18 complet Bld-mCn 013 g/dL .0 ed c 23:20 Hct Fr 05-10-2 41.8 % 42.0-52 complet Bld 013 .0 ed 23:20 MCV RBC 05-10-2 85.3 fl 82.2-97 complet 013 .8 ed 23:20 MCH RBC 05-10-2 28.7 pg 27-31.2 complet Qn 013 ed Auto 23:20 MEAN 05-10-2 33.7 31.8-35 complet CORPUSC 013 g/dl .4 ed ULAR 23:20 HGB CONC RDW RBC 05-10-2 13.1 % 11.5-17 complet Auto 013 .5 ed 23:20 Platele 05-10-2 235 142-424 complet t Bld 013 K/mm3 ed Ql 23:20 Manual MEAN 05-10-2 7.5 fl 7.4-10. complet PLATELE 013 4 ed T 23:20 VOLUME Granulo 05-10-2 70.9 % 37.0-80 complet cytes 013 .0 ed Fr Bld 23:20 Auto LYMPH % 05-10-2 24.6 % 10-50 complet 013 ed 23:20 Monocyt 05-10-2 3.8 % 1.7-9.3 complet es Fr 013 ed Bld 23:20 Auto Eosinop 05-10-2 0.6 % 0.1-12. complet hil Fr 013 0 ed Bld 23:20 Auto Basophi 05-10-2 0.1 % 0.1-2.0 complet ls Fr 013 ed Bld 23:20 Auto Granulo 05-10-2 6.6 1.3-8.0 complet cytes # 013 K/mm3 ed Bld 23:20 Auto Lymphoc 05-10-2 2.3 0.7-4.5 complet ytes Fr 013 K/mm3 ed Bld 23:20 Auto Monocyt -10-2 0.4 0.1-1.0 complet es # 013 K/mm3 ed Bld 23:20 Auto Eosinop -10-2 0.1 0.0-0.4 complet hil # 013 K/mm3 ed Bld 23:20 Auto Basophi 10-2 0.0 0-0.2 complet ls # 013 K/MM3 ed Bld 23:20 Auto Glucose BldC Glucomtr-nc (01-21-2013 22:52) Glucose 01-21- 124 70-110 complet BldC 013 mg/dl ed Glucomt 22:52 r-[facility] Procedures Procedure DOS Code Location Performer Comment BLDR [id number] [facility] ART IRRIGATIO 7 [facility] N SMPL MEDICAL LAVAGE G &/INSTLJ THERAPEUT 95238 [facility] ART IC 7 [facility] PROPHYLAC MEDICAL TIC/DX G INJECTION SUBQ/IM INJECTION J1580 [facility] 7 [facility] GARAMYCIN MEDICAL G GENTAMICI N UP TO 80 MG CYSTOURET 40884 [facility] ART HROSCOPY 7 [facility] MEDICAL G URNLS DIP 99836 [facility] ART 7 [facility] STICK/TAB MEDICAL LET RGNT G AUTO W/O MICROSCOP Y URNLS DIP 61105 [facility] 7 [facility] STICK/TAB MEDICAL LET RGNT G AUTO W/O MICROSCOP Y CULTURE 03145 [facility] INC INC QUANTTATI VE COLONY COUNT URINE COMPREHEN 27636 [facility] SIVE [facility] [place] [address] [facility] INFUSION [facility] THERAPY/P INC INC ROPHYLAXI S /DX 1ST TO 1 HR THERAPEUT 27776 [facility] IC 7 [facility] INJECTION INC IV PUSH EACH NEW DRUG URNLS DIP 69217 [facility] STICK/TAB INC INC LET REAGENT AUTO MICROSCOP Y BLOOD 40013 [facility] COUNT 7 [facility] COMPLETE INC INC AUTO&[place] [address] [facility] ABDOMEN & 7 MEDICAL PELVIS IMAGING W/O ASS CONTRAST MATERIAL DRUG TST G0483 MD LABS MD LABS DEFINITV 6 DR ID METH P DAY 22/MORE DR ENMANUEL ROSEN 87873 [facility] SIVE 6 [facility] METABOLIC INC INC PANEL BLOOD 00642 [facility] COUNT 6 [facility] COMPLETE INC INC AUTO&AUTO DIFRNTL WBC PHYSICAL 42095 [facility] THERAPY 6 [facility] EVALUATIO INC INC N RADEX 78852 S[facility] SPINE 6 [facility] LUMBOSACR INC INC AL MINIMUM 4 VIEWS THERAPEUT 23162 [facility] JEROD IC 6 PHYSICIAN PROPHYLAC S GROUP TIC/DX INJECTION SUBQ/IM INJECTION J1100 [facility] JEROD 6 PHYSICIAN DEXAMETHO S GROUP SONE SODIUM PHOSPHATE 1 MG INJECTION J0696 [facility] JEORD 6 PHYSICIAN CEFTRIAXO S GROUP NE SODIUM PER 250 MG INJECTION J1040 [facility] JEROD 6 PHYSICIAN METHYLPRE S GROUP DNISOLONE ACETATE 80 MG IIV3 93896 [facility] JEROD VACCINE 6 PHYSICIAN SPLIT S GROUP VIRUS 0.5 ML DOSAGE IM USE IM ADM 85297 [facility] JEROD PRQ ID 6 PHYSICIAN SUBQ/IM S GROUP NJXS 1 VACCINE RADIOLOGI 60531 [facility] ALL C EXAM 6 MEDICAL CHEST 2 IMAGING VIEWS ASS FRONTAL&L ATERAL POLYSOM 60024 [facility] PAVEZ 6/>YRS 6 PHYSICIAN SLEEP 4/> S GROUP ADDL RUDDY ATTND THERAPEUT 83585 [facility] JEROD IC 6 PHYSICIAN PROPHYLAC S GROUP TIC/DX INJECTION SUBQ/IM INJECTION J1885 [facility] JEROD 6 PHYSICIAN KETOROLAC S GROUP TROMETHAM INE PER 15 MG ECG 28801 [facility] ROUTINE 6 [facility] ECG INC INC W/LEAST 12 LDS TRCG ONLY W/O I&R ECHO 27241 [facility] TTHRC R-T 6 [facility] 2D INC INC W/WOM-MOD E COMPL SPEC&COLR D ECHO 73652 [facility] TRANSTHOR 6 MEDICAL C R-T 2D SERV W/WO FOUNDATIO M-MODE N REC F-UP/LMTD DRUG TST G0477 [facility] PRESUMP;C 6 [facility] PBL BEING INC INC READ DC OPT OBV ONLY BLOOD 42449 DOMINI[facility] DOMINIQUE COUNT 2 R H R H COMPLETE AUTO&AUTO DIFRNTL WBC RADEX 14088 [place] [facility] 2 MEDICAL BRENDAN COMPLETE IMAGING MINIMUM 2 ASS VIEWS BLOOD 28200 [facility] COUNT 2 CARE CARE COMPLETE ASSOCIATE ASSOCIATE AUTO&AUTO S S DIFRNTL WBC PRESSURIZ 57443 [facility] ED/NONPRE 1 DON DON SSURIZED INHALATIO N TREATMENT RADIOLOGI 80671 [facility] C 1 DON DON EXAMINATI ON CHEST SING[place]IEW FRONTAL RADIOLOGI 00621 [facility] C 1 MEDICAL BRENDAN EXAMINATI IMAGING ON KNEE 3 ASS VIEWS GROUND A0425 [facility] MILEAGE 1 AMBULANCE AMBULANCE PER SERVICE SERVICE STATUTE MILE AMBULANCE A0429 [facility] SERVICE 1 AMBULANCE AMBULANCE BLS SERVICE SERVICE EMERGENCY TRANSPORT FRAMES V2020 [facility] PURCHASES 1 VISION 1 VISN V2103 [facility] PLANO 1 VISION TO+/-4.00 D SPHER 0.12-2.00 D CYL EA FITTING 03650 [facility] SPECTACLE 1 VISION S XCPT APHAKIA MONOFOCAL OPHTH 36400 [facility] MEDICAL 1 VISION XM&EVAL COMPRE NEW PT 1/> [place] [address] [facility] INFUSION 1 [facility] THERAPY/P INC INC ROPHYLAXI S /DX 1ST TO 1 HR RADIOLOGI 89095 [facility] Yañez EXAM 1 [facility] CHEST 2 INC INC VIEWS FRONTAL&L ATERAL BLOOD 43368 [facility] COUNT 1 [facility] COMPLETE INC INC AUTO&AUTO DIFRNTL WBC COMPREHEN 77398 [facility] SIVE 1 [facility] [place] [address] SERE[facility] STREPTOCO 1 [facility] CCUS INC INC GROUP A IAADI 41359 SERENA LYONS INFLUENZA 1 [facility] B VIRUS INC INC IAADI 09459 [facility] INFFLUENZ 1 [facility] A A VIRUS INC INC 3D 45453 S[facility]NA [facility] RENDERING 0 [facility] W/INTERP INC INC & [place] [address] SERENA LYONS HEAD/BRAI 0 [facility] N W/[place] [address] SERENA LYONS INFUSION 0 [facility] THERAPY/P INC INC ROPHYLAXI S /DX 1ST TO 1 HR IAADI 53934 SERENA LYONS INFFLUENZ 0 [facility] A A VIRUS INC INC IAADI 08236 SERENA L[facility]ONS INFLUENZA 0 [facility] B VIRUS INC INC COMPREHEN 76565 [facility] SIVE 0 [facility] METABOLIC INC INC PANEL BLOOD 33355 [facility]ONS COUNT 0 [facility] COMPLETE INC INC AUTO&AUTO DIFRNTL WBC BLOOD 33974 [facility] COUNT 0 [facility] COMPLETE INC INC AUTO&[place] [address] SERE[facility]FUSION 0 [facility] THERAPY/P INC INC ROPHYLAXI S /DX 1ST TO 1 HR RADIOLOGI 01894 [facility]ERENA [facility] C EXAM 0 [facility] CHEST 2 INC INC VIEWS FRONTAL&L ATERAL PRESSURIZ 08215 [facility]ERENA L[facility]ONS ED/NONPRE 0 [facility] SSURIZED INC INC INHALATIO N TREATMENT BLOOD 87391 [facility]ONS COUNT 0 [facility] COMPLETE INC INC AUTO&AUTO DIFRNTL WBC BASIC 64806 SERENA LYONS METABOLIC 0 [facility] PANEL INC INC CALCIUM TOTAL IAADI 43368 SERENA LYONS INFFLUENZ 0 [facility] A A VIRUS INC INC IAADI 69405 SERENA LYONS INFLUENZA 0 [facility] B VIRUS INC INC IAADIADOO 22390 HANEY, HANEY, 0 DON R DON R STREPTOCO CCUS GROUP A APPL 56966 JAN CHEATHAM, MODALITY 0 FAMILY ARNOLD H 1/> AREAS CHIROPRAC TRACTION TIC MECHANICA L STRAPPING 25351 JAN CHEATHAM, THORAX 0 FAMILY ARNOLD H CHIROPRAC TIC CHIROPRAC 82891 JAN CHEATHAM, TIC 0 FAMILY ARNOLD H MANIPULAT CHIROPRAC [place] TIC SPINAL 3-4 REGIONS THERAPEUT 29328 JAN CHEATHAM, IC PX 1/> 0 FAMILY ARNOLD H AREAS CHIROPRAC EACH 15 TIC MIN EXERCISES THERAPEUT 71010 JAN CHEATHAM, IC PX 1/> 0 FAMILY ARNOLD H AREAS CHIROPRAC EACH 15 TIC MIN EXERCISES CHIROPRAC 96434 JAN CHEATHAM, TIC 0 FAMILY ARNOLD H MANIPULAT CHIROPRAC [place] TIC SPINAL 3-4 REGIONS MANUAL 37491 JAN CHEATHAM, THERAPY 0 FAMILY ARNOLD H TQS 1/> CHIROPRAC REGIONS TIC EACH 15 MINUTES STRAPPING 38450 JAN CHEATHAM, THORAX 0 FAMILY ARNOLD H CHIROPRAC TIC APPL 69191 JAN CHEATHAM, MODALITY 0 FAMILY ARNOLD H 1/> AREAS CHIROPRAC TRACTION TIC MECHANICA L APPL 99931 JAN CHEATHAM, MODALITY 0 FAMILY ARNOLD H 1/> AREAS CHIROPRAC ELEC TIC STIMJ UNATTENDE D APPL 27570 JAN CHEATHAM, MODALITY 0 FAMILY ARNOLD H 1/> AREAS CHIROPRAC TRACTION TIC MECHANICA L STRAPPING 73378 JAN CHEATHAM, THORAX 0 FAMILY ARNOLD H CHIROPRAC TIC MANUAL 08106 JAN CHEATHAM, THERAPY 0 FAMILY ARNOLD H TQS 1/> CHIROPRAC REGIONS TIC EACH 15 MINUTES CHIROPRAC 12716 JAN CHEATHAM, TIC 0 FAMILY ARNOLD H MANIPULAT CHIROPRAC [place] TIC SPINAL 3-4 REGIONS THERAPEUT 74303 JAN CHEATHAM, IC PX 1/> 0 FAMILY ARNOLD H AREAS CHIROPRAC EACH 15 TIC MIN EXERCISES THERAPEUT 03080 JAN CHEATHAM, IC PX 1/> 0 FAMILY ARNOLD H AREAS CHIROPRAC EACH 15 TIC MIN EXERCISES MANUAL 81642 JAN CHEATHAM, THERAPY 0 FAMILY ARNOLD H TQS 1/> CHIROPRAC REGIONS TIC EACH 15 MINUTES CHIROPRAC 26822 JAN CHEATHAM, TIC 0 FAMILY ARNOLD H MANIPULAT CHIROPRAC [place] TIC SPINAL 3-4 REGIONS STRAPPING 54876 JAN CHEATHAM, THORAX 0 FAMILY ARNOLD H CHIROPRAC TIC APPL 29626 JAN CHEATHAM, MODALITY 0 FAMILY ARNOLD H 1/> AREAS CHIROPRAC TRACTION TIC MECHANICA L MANUAL 55573 JAN CHEATHAM, THERAPY 0 FAMILY ARNOLD H TQS 1/> CHIROPRAC REGIONS TIC EACH 15 MINUTES STRAPPING 81597 JAN CHEATHAM, THORAX 0 FAMILY ARNOLD H CHIROPRAC TIC CHIROPRAC 59770 JAN CHEATHAM, TIC 0 FAMILY ARNOLD H MANIPULAT CHIROPRAC [place] TIC SPINAL 3-4 REGIONS THERAPEUT 83811 JAN CHEATHAM, IC PX 1/> 0 FAMILY ARNOLD H AREAS CHIROPRAC EACH 15 TIC MIN EXERCISES THERAPEUT 87530 JAN CHEATHAM, IC PX 1/> 0 FAMILY ARNOLD H AREAS CHIROPRAC EACH 15 TIC MIN EXERCISES CHIROPRAC 96143 JAN CHEATHAM, TIC 0 FAMILY ARNOLD H MANIPULAT CHIROPRAC [place] TIC SPINAL 3-4 REGIONS STRAPPING 39981 JAN CHEATHAM, THORAX 0 FAMILY ARNOLD H CHIROPRAC TIC APPL 58710 JAN CHEATHAM, MODALITY 0 FAMILY ARNOLD H 1/> AREAS CHIROPRAC ELEC TIC STIMJ UNATTENDE D APPL 45730 JAN CHEATHAM, MODALITY 0 FAMILY ARNOLD H 1/> AREAS CHIROPRAC TRACTION TIC MECHANICA L APPL 82345 JAN CHEATHAM, MODALITY 0 FAMILY ARNOLD H 1/> AREAS CHIROPRAC ELEC TIC STIMJ EA 15 MIN APPL 75301 JAN CHEATHAM, MODALITY 0 FAMILY ARNOLD H 1/> AREAS CHIROPRAC TRACTION TIC MECHANICA L CHIROPRAC 32914 JAN CHAPARRITA, TIC 0 FAMILY ARNOLD H MANIPULAT CHIROPRAC KEREN [place] TIC SPINAL 3-4 REGIONS THERAPEUT 76135 JAN CHEATHAM, IC PX 1/> 0 FAMILY ARNOLD H AREAS CHIROPRAC EACH 15 TIC MIN EXERCISES THERAPEUT 08318 JAN CHEATHAM, IC PX 1/> 9 FAMILY ARNOLD H AREAS CHIROPRAC EACH 15 TIC MIN EXERCISES STRAPPING 60671 JAN CHEATHAM, LOW BACK 9 FAMILY ARNOLD H CHIROPRAC TIC CHIROPRAC 15896 JAN CHEATHAM, TIC 9 FAMILY ARNOLD H MANIPULAT CHIROPRAC KEREN TX TIC SPINAL 3-4 REGIONS APPL 93491 JAN CHEATHAM, MODALITY 9 FAMILY ARNOLD H 1/> AREAS CHIROPRAC TRACTION TIC MECHANICA L CHIROPRAC 88526 JAN CHEATHAM, TIC 9 FAMILY ARNOLD H MANIPLTV CHIROPRAC TX TIC EXTRASPIN AL 1/> [place] [address] MS GENET SURG 9 MEDICAL VALERY, E PATHOLOGY SERV FOUNDATIO GROSS&NOLAN ROSCOPIC EXAM COLONOSCO 17627 [facility] LINDSAY PY 9 MEDICAL R, W/BIOPSY SERV [facility] SINGLE/MU FOUNDATIO [facility] [address] [facility] DISCHARGE 9 MEDICAL R, DAY SERV [facility] MANAGEMEN FOUNDATIO T 30 MIN/< SBSQ 13256 [place] [address] MEDICAL R, CARE/DAY SERV HAROHALLI 25 FOUNDATIO MINUTES ECG 30549 [place] [facility] ROUTINE 9 MEDICAL , ABELARDO ECG SERV J W/LEAST FOUNDATIO 12 LDS I&R ONLY EGD 15204 [place] [facility] TRANSORAL 9 MEDICAL R, BIOPSY SERV HAROHALLI SINGLE/MU FOUNDATIO LTIPLE RADIOLOGI 24773 [place] [facility], C EXAM 9 MEDICAL AMBROSIO T CHEST 2 SERV VIEWS FOUNDATIO FRONTAL&L ATERAL INITIAL 47518 [place] [facility] 9 MEDICAL R, CARE/DAY SERV HAROHALLI 70 FOUNDATIO MINUTES RADEX 74847 [place] [facility], SPINE 9 MEDICAL AMBROSIO T LUMBOSACR SERV AL 2/3 FOUNDATIO VIEWS RADEX 29410 [place] [facility], SPINE 9 MEDICAL AMBROSIO T THORACIC SERV 2 VIEWS FOUNDATIO RADEX 51669 [place] JODIE, ABDOMEN 1 9 MEDICAL VELIA G SERV ANTEROPOS FOUNDATIO TERIOR [place]IEW ANES 64908 [place] [facility] UPPER GI 9 MEDICAL , ZOHN N ENDOSCOPY [place] [address] [place] MAKEN[place], SURG 9 MEDICAL AYAD PATHOLOGY SERV J FOUNDATIO GROSS&NOLAN ROSCOPIC EXAM SPECIAL 83841 [place], STAIN 9 MEDICAL AYAD GROUP 1 SERV J MICROORGA FOUNDATIO NISMS I&R ESOPHAGOG 4516 [facility] 9 Y Y [facility] [place] [address] [place] [facility], ABDOMEN 9 MEDICAL AMBROSIO T W/CONTRAS SERV T FOUNDATIO [place] PELVIS [address] [place] [facility], 9 MEDICAL AMBROSIO T W/CONTRAS SERV T FOUNDATIO MATERIAL THERAPEUT 95601 JAN CHEATHAM, IC PX 1/> 9 [facility] CHIROPRAC EACH 15 TIC MIN EXERCISES CHIROPRAC 58294 GAEL ALVARENGA 9 FAMILY ARNLEONARDO H MANIPULAT CHIROPRAC KREEN [place] TIC SPINAL 3-4 REGIONS APPL 14975 JAN CHEATHAM MODALITY 9 FAMILY ARNOLD H 1/> AREAS CHIROPRAC TRACTION TIC MECHANICA L APPL 33550 JAN CHEATHAM, MODALITY 9 FAMILY ARNOLD H 1/> AREAS CHIROPRAC ELEC TIC STIMJ UNATTENDE D APPL 40129 JAN CHEATHAM, MODALITY 9 FAMILY ARNOLD H 1/> AREAS CHIROPRAC ELEC TIC STIMJ EA 15 MIN CHIROPRAC 82517 JAN CHEATHAM, TIC 9 FAMILY ARNOLD H MANIPULAT CHIROPRAC KEREN TX TIC SPINAL 3-4 REGIONS APPL 65766 JAN CHEATHAM, MODALITY 9 FAMILY ARNOLD H 1/> AREAS CHIROPRAC TIC ULTRAVIOL ET APPL 22853 JAN CHEATHAM, MODALITY 9 FAMILY ARNOLD H 1/> AREAS CHIROPRAC ELEC TIC STIMJ UNATTENDE D APPL 70715 JAN CHEATHAM, MODALITY 9 FAMILY ARNOLD H 1/> AREAS CHIROPRAC TRACTION TIC MECHANICA L THERAPEUT 47534 JAN CHEATHAM, IC PX 1/> 9 FAMILY ARNOLD H AREAS CHIROPRAC EACH 15 TIC MIN EXERCISES HOSPITAL 04095 [facility] 9 DON R DON R DAY MANAGEMEN T 30 MIN/< SBSQ 11755 [facility] 9 JR JULIO, CARE/DAY TRAE [place] 25 MINUTES SBSQ [address]4963 [place] [address] DON R DON R CARE/DAY 25 MINUTES INITIAL 34873 [facility] INPATIENT 9 JRJR, CONSULT TRAE [place] NEW/ESTAB PT 80 MIN INITIAL 61384 [place] [address] DON R DON R CARE/DAY [address] PELVIS [address] [place], 9 MEDICAL DRAKE P W/[place] [address] [place], ABDOMEN 9 MEDICAL DRAKE P W/CONTRAS IMAGING T ASSOCIATE MATERIAL S RADEX 78796 [place], ABDOMEN 9 MEDICAL DRAKE P COMPL IMAGING W/DCBTS&/ ASSOCIATE ERC VIEWS S 3D 32178 [place], RENDERING 9 MEDICAL DRAKE P IMAGING W/INTERP& ASSOCIATE POSTPROC S DIFF WORK STATION 3D 92949 [facility] BORREGOMALU, RENDERING 9 MEDICAL ABELARDO IMAGING W/INTERP& ASSOCIATE POSTPROC S DIFF WORK STATION CT PELVIS 83522 [facility] BORREGOMALU, W/O 9 MEDICAL ABELARDO CONTRAST IMAGING MATERIAL ASSOCIATE S RADEX 00259 [facility] MALU, ABDOMEN 9 MEDICAL ABELARDO COMPL IMAGING W/DCBTS&/ [place] [address] [facility] MALU, ABDOMEN 9 MEDICAL ABELARDO W/[place] [address] [facility] INFUSION 9 [facility] THER INC INC PROPH ADDL SEQUENTIA L TO 1 [place] [address] [facility]FUSION 9 [facility] THERAPY/P INC INC ROPHYLAXI S /DX 1ST TO 1 HR BASIC 38136 [facility] METABOLIC 9 [facility] PANEL INC INC CALCIUM TOTAL URNLS DIP 28013 [facility] 9 [facility] STICK/TAB INC INC LET REAGENT AUTO MICROSCOP Y BLOOD 98243 [facility] COUNT 9 [facility] COMPLETE INC INC AUTO&AUTO DIFRNTL WBC CHIROPRAC 72485 RAFAELMARC BELL, TIC 9 FAMILY MORGAN C MANIPULAT CHIROPRAC KEREN TX TIC SPINAL 3-4 REGIONS APPL 90138 [place] BE[place], MODALITY 9 FAMILY MORGAN C 1/> AREAS CHIROPRAC ELEC TIC STIMJ EA 15 MIN APPL 67540 [place], MODALITY 9 FAMILY MORGAN C 1/> AREAS CHIROPRAC TRACTION TIC MECHANICA L CHIROPRAC 74166 [place], TIC 9 FAMILY MORGAN C MANIPLTV CHIROPRAC TX TIC EXTRASPIN AL 1/> REGION THERAPEUT 03922 [place] BELL, IC PX 1/> 9 FAMILY MORGAN C AREAS CHIROPRAC EACH 15 TIC MIN EXERCISES THERAPEUT 81206 CYNTHIDARIEL BELL, IC PX 1/> 9 FAMILY MORGAN C AREAS CHIROPRAC EACH 15 TIC MIN EXERCISES CHIROPRAC 43701 [place] BE[place], TIC 9 FAMILY MORGAN C MANIPULAT CHIROPRAC KEREN TX TIC SPINAL 3-4 REGIONS CHIROPRAC 46952 [place] BE[place], TIC 9 FAMILY MORGAN C MANIPLTV CHIROPRAC TX TIC EXTRASPIN AL 1/> REGION APPL 34293 [place] BE[place], MODALITY 9 FAMILY MORGAN C 1/> AREAS CHIROPRAC TRACTION TIC MECHANICA L APPL 99146 [place], MODALITY 9 FAMILY MORGAN C 1/> AREAS CHIROPRAC ELEC TIC STIMJ EA 15 MIN APPL 01850 [place] BE[place], MODALITY 9 FAMILY MORGAN C 1/> AREAS CHIROPRAC ELEC TIC STIMJ EA 15 MIN CHIROPRAC 26608 [place] BELL, TIC 9 FAMILY MORGAN C MANIPULAT CHIROPRAC KEREN TX TIC SPINAL 3-4 REGIONS APPL 71757 [place] BE[place], MODALITY 9 FAMILY MORGAN C 1/> AREAS CHIROPRAC TRACTION TIC MECHANICA L CHIROPRAC 33423 [place], TIC 9 FAMILY MORGAN C MANIPLTV CHIROPRAC TX TIC EXTRASPIN AL 1/> REGION THERAPEUT 40697 [place] BELL, IC PX 1/> 9 FAMILY MORGAN C AREAS CHIROPRAC EACH 15 TIC MIN EXERCISES RADEX 82113 [place], SPINE 9 FAMILY MORGAN C LUMBOSACR CHIROPRAC AL 2/3 TIC VIEWS CHIROPRAC 85880 [place] BELL, TIC 9 FAMILY MORGAN C MANIPULAT CHIROPRAC KEREN TX TIC SPINAL 3-4 REGIONS RADEX 62651 [place] BE[place], SPINE 9 FAMILY MORGAN C CERVICAL CHIROPRAC 2 OR 3 TIC VIEWS CHIROPRAC 60210 [place] BELL, TIC 9 FAMILY MORGAN C MANIPLTV CHIROPRAC TX TIC EXTRASPIN AL 1/> REGION APPL 90502 [place] BE[place], MODALITY 9 FAMILY MORGAN C 1/> AREAS CHIROPRAC TRACTION TIC MECHANICA L SELF-CARE 20417 [place] BELL, /HOME 9 FAMILY MORGAN C MGMT CHIROPRAC TRAINING TIC EACH 15 MINUTES CUL BACT 85255 [facility] XCPT 9 [facility] URINE INC INC BLOOD/STO OL AEROBIC ISOL CUL BACT 53371 [facility] AEROBIC 9 [facility] ADDL INC INC METHS DEFINITIV E EA ISOL SUSCEPTIB 69363 [facility] LTY STDY 9 [facility] ANTIMICRB INC INC IAL MICRO/AGA R DILUTJ BLOOD 49574 FAMILY ROSARIO, COUNT 9 CARE SANDRA T COMPLETE ASSOCIATE AUTO&AUTO S DIFRNTL WBC Encounters Encounter Start End Date Code Location Performer Type Date OFFICE 30564 [facility] ART OUTPATIEN 7 7 [facility] T VISIT MEDICAL 10 G MINUTES OFFICE 76303 [facility] ART CONSULTAT 7 7 [facility] ION MEDICAL NEW/ESTAB G PATIENT 60 MIN EMERGENCY 75969 [facility] DEPT 7 7 PHYSICIAN VISIT S, PLLC HIGH SEVERITY& THREAT FUNCJ EMERGENCY 65707 [facility] 7 7 [facility] VISIT MODERATE SEVERITY HOSPITAL [facility] - 7 7 [facility] 6 6 [facility] 98471 [facility] OUTPATIEN 6 6 PHYSICIAN T VISIT S GROUP 15 MINUTES HOSPITAL [facility] - 6 6 [facility] OUTPATIEN [facility] OFFICE 96915 [facility] OUTPATIEN 6 6 PHYSICIAN T VISIT S GROUP 15 MINUTES OFFICE 06245 [facility] OUTPATIEN 6 6 PHYSICIAN T VISIT S GROUP 25 MINUTES HOSPITAL SERE[facility] - 6 6 [facility] OUTPATIEN [facility] - 6 6 [facility] OUTPATIEN INC T OFFICE 41431 [facility] OUTPATIEN 6 6 PHYSICIAN EUG T VISIT S GROUP 15 MINUTES OFFICE 86221 [facility] OUTPATIEN 6 6 PHYSICIAN T VISIT S GROUP 25 MINUTES OFFICE 94814 [facility] OUTPATIEN 6 6 PHYSICIAN MAT T NEW 45 S GROUP MINUTES HOSPITAL [facility] - 6 6 [facility] OUTPATI[facility] INC T OFFICE 38430 [facility] OUTPATIEN 6 6 PHYSICIAN EUG T VISIT S GROUP 15 MINUTES HOSPITAL [facility] - 6 6 [facility] OUTPATIEN INC T Emergency TIBURCIO BEGUM (ER) 3 20:17 3 22:53 [facility] Emergency TIBURCIO Rg MD (ER) 3 22:11 3 23:26 [facility] Emergency TIBURCIO Mesa MD (ER) 3 23:50 3 00:04 [facility] Emergency TIBURCIO Rg MD (ER) 3 23:10 3 01:35 [facility] Emergency TIBURCIO Rg MD (ER) 3 22:23 3 00:41 [facility] OFFICE 28687 LYNDON HANEY OUTPATIEN 2 2 DON DON T VISIT 15 MINUTES OFFICE 77718 DOMINIQUE DOMINIQUE OUTPATIEN 2 2 R H R H T VISIT 15 MINUTES EMERGENCY 94116 [facility] 2 2 [facility] DEPARTMEN INC T VISIT LOW/MODER SEVERITY HOSPITAL [facility] - 2 2 [facility] OUTPATIEN INC T EMERGENCY 86494 AKILA RG 2 2 NOLAN NOLAN DEPARTMEN T VISIT HIGH/URGE NT SEVERITY OFFICE 14311 HANEY HANEY OUTPATIEN 2 2 DON DON T VISIT 15 MINUTES OFFICE 91686 BEHZAD BEHZAD OUTPATIEN 2 2 LESLY LESLY T NEW 30 MINUTES OFFICE 37746 LYNDON LUQUES OUTPATIEN 2 2 DON DON T VISIT 15 MINUTES OFFICE 14783 LYNDON DE LEONHENS OUTPATIEN 2 2 DON DON T VISIT 15 MINUTES OFFICE 99455 FAMILY DOMINIQUE OUTPATIEN 2 2 CARE R H T VISIT ASSOCIATE 15 S MINUTES OFFICE 45573 [facility] OUTPATIEN 2 2 DON DON T VISIT 15 MINUTES OFFICE 51717 [facility] OUTPATIEN 1 1 DON DON T VISIT 15 MINUTES OFFICE 78305 HANEY HANEY OUTPATIEN 1 1 DON DON T VISIT 25 MINUTES OFFICE 54038 HANEY HANEY OUTPATIEN 1 1 DON DON T VISIT 15 MINUTES OFFICE 44793 HANEY HANEY OUTPATIEN 1 1 DON DON T VISIT 15 MINUTES OFFICE 79311 HANEY HANEY OUTPATIEN 1 1 DON DON T VISIT 15 MINUTES OFFICE 96056 HANEY HANEY OUTPATIEN 1 1 DON DON T VISIT 15 MINUTES OFFICE 27607 HANEY HANEY OUTPATIEN 1 1 DON DON T VISIT 15 MINUTES OFFICE 17040 HANEY HANEY OUTPATIEN 1 1 DON DON T VISIT 15 MINUTES EMERGENCY 06162 [facility] 1 1 [facility] DEPARTMEN INC T VISIT HIGH/URGE NT [facility] SERENA - 1 1 [facility] OUTPATIEN INC T OFFICE 71228 HANEY HANEY OUTPATIEN 1 1 DON DON T VISIT 15 MINUTES OFFICE 92845 LYNDON HANEY OUTPATIEN 0 0 DON DON T VISIT 15 MINUTES HOSPITAL [facility] - 0 0 [facility] OUTPATIEN INC T OFFICE 13886 LYNDON HANEY OUTPATIEN 0 0 DON DON T VISIT 15 MINUTES EMERGENCY 03202 [facility] 0 0 [facility] DEPARTMEN INC T VISIT MODERATE SEVERITY HOSPITAL [facility] - 0 0 [facility] OUTPATIEN INC T EMERGENCY 69043 YOVANY RG 0 0 [facility] HIGH/URGE NT SEVERITY PERIODIC 82486 LYNDON HANEY PREVENTIV 0 0 DON DON E MED EST PATIENT OFFICE 03917 LYNDON HANEY OUTPATIEN 0 0 DON R DON R T VISIT 15 MINUTES HOSPITAL [facility] - 0 0 [facility] OUTPATIEN INC T EMERGENCY 43144 YOVANY RG, 0 0 [facility] V[facility] HIGH/URGE ASSOCIATE NT S SEVERITY EMERGENCY 89204 [facility] 0 0 [facility] DEPARTMEN INC T VISIT MODERATE SEVERITY OFFICE 02595 LYNDON HANEY OUTPATIEN 0 0 DON R DON R T VISIT 15 MINUTES HOSPITAL [facility] - 0 0 [facility] OUTPATIEN INC T OFFICE 93662 LYNDON HANEY OUTPATIEN 0 0 DON R DON R T VISIT 15 MINUTES OFFICE 31653 JAN CHEATHAM OUTPATIEN 0 0 FAMILY JOSE MARIA H T VISIT CHIROPRAC 15 TIC MINUTES [facility] 9 9 [facility] Y IN[facility]IENT HOSPITAL OFFICE 78619 KMSF KELSI, ANGEL 9 9 NURSE NORMAN JAFFE/ESTAB NER GROUP PATIENT 60 MIN OFFICE 82673 LYNDON HANEY OUTPATIEN 9 9 DON R DON R T VISIT 15 MINUTES HOSPITAL [facility] - 9 9 [facility] INPATIENT INC EMERGENCY 44661 YOVANY DE LA FUENTE DEPT 9 9 EMERGENCY III, VISIT SERVICES [facility] HIGH SEVERITY& ASSOCIATE THREAT S FUN OFFICE 09513 LYNDON HANEY OUTPATIEN 9 9 DON R DON R T VISIT 15 MINUTES OFFICE 11239 LYNDON HANEY OUTPATIEN 9 9 DON R DON R T VISIT 15 MINUTES EMERGENCY 29157 [facility] 9 9 [facility] HIGH/URGE NT SEVERITY [facility] - 9 9 [facility] OUTPATIEN INC T EMERGENCY 03557 YOVANY RG DEPT 9 9 EMERGENCY MARITA S VISIT SERVICES HIGH SEVERITY& ASSOCIATE THREAT S [facility] OFFICE 77278 LYNDON HANEY OUTPATIEN 9 9 DON R DON R T VISIT 15 MINUTES OFFICE 60142 DAE MENDEZ 9 9 FAMILY MORGAN C T NEW 20 CHIROPRAC MINUTES TIC OFFICE 06436 LY[facility]ON HANEY OUTPATIEN 9 9 DON R DON R T VISIT 15 MINUTES OFFICE 67675 LY[facility]ON HANEY OUTPATIEN 9 9 DON R DON R T VISIT 15 MINUTES HOSPITAL [facility] - 9 9 [facility] OUTPATIEN INC T OFFICE 83226 LYNDON HANEY OUTPATIEN 9 9 DON R DON R T VISIT 15 MINUTES OFFICE 71070 FAMILY ROSARIODAE 9 9 CARE SANDRA T T VISIT ASSOCIATE 25 S MINUTES OFFICE 10713 LYNDON HANEY OUTPATIEN 9 9 DON R DON R T VISIT 15 MINUTES OFFICE 50713 LYNDON HANEY OUTPATIEN 9 9 DON R DON R T NEW 20 MINUTES
--- OUTSIDE RECORDS SUMMARY | 2017-01-25 14:18 | External Medical Summary Rpt ---
Author Author , Organization [employer] Address Unknown Phone Unavailable Care Team Providers Care Information Lead Name Role Phone AYAD MENSAH, Unavailable Unavailable AYAD MENSAH JR, CHARLES F, Unavailable Unavailable TRAE ZAMORA JR ART, ART Unavailable Unavailable CHEN, CHEN Unavailable Unavailable CHEN ALL, CHEN ALL Unavailable Unavailable [facility] Unavailable Unavailable SERVICE, [facility] Unavailable Unavailable SERVICE, [facility] [place], ZOHN N, Unavailable Unavailable [place], ZOHN N MALU BRENDAN, Unavailable Unavailable MALU BRENDAN FRACISCO TORIBIOLAS, Unavailable Unavailable MALU, ABELARDO [facility], Unavailable Unavailable [facility] Unavailable [place] [facility] [place] [facility] [place] [facility] BEHZAD LESLY, Unavailable Unavailable [...] INC OCHOA AGUILAR, OCHOA AGUILAR Unavailable Unavailable [facility], Unavailable Unavailable [facility] Un[facility] Un[facility], [facility] Unavailable Unavailable MEDICAL G, [facility] Ayad Mesa MD, Unavailable Unavailable VELIA Jett MD, , Unavailable Unavailable [facility] Un[facility] GUIDO PABLO, Unavailable Unavailable GUIDO PABLO MD, Unavailable Unavailable Anne Rg MD [facility] Unavailable Unavailable SERVICES, [facility] LAB[facility], LABS Unavailable Unavailable LABS, LABS Unavailable Unavailable DRAKE MCGREGOR, Unavailable Unavailable DRAKE MCGREGOR MULBERRY, SANDRA T, Unavailable Unavailable MULBERRY, SANDRA T NADIG VID, NADIG VID Unavailable Unavailable MORGAN BELL, Unavailable Unavailable MORGAN BELL [facility], Unavailable Unavailable DOMINIQUE R H [facility], Unavailable Unavailable [facility], [facility] PAVEZ, PAVEZ Unavailable Unavailable AM[facility] HUITRON, Unavailable Unavailable [facility] Unavailable Unavailable [facility] Unavailable Unavailable [address] [address] [id number], [facility] [address] # [id number] ABELARDO GUDINO, Unavailable Unavailable ABELARDO GUDINO, Unavailable Unavailable ADELE NOLEN, TAMANNA LEN MAT, Unavailable Unavailable LEN MAT HANEY DON, Unavailable Unavailable HANEY DON HANEY DON, Unavailable Unavailable HANEY DON HANEY, DON R, Unavailable Unavailable HANEY, DON R NORMAN DOLAN, Unavailable Unavailable NORMAN DOLAN, ROSS NEWSOME Unavailable Unavailable [facility], Unavailable Unavailable [facility] Unavailable Unavailable [address]591, [facility] DYLON DE LA FUENTE III, Unavailable Unavailable DYLON DE LA FUENTE III, E MD, Unavailable Unavailable Home GODFREY MD Purpose Continuity of Care Document - 05-08-2009 through 2016 Problems Code Diagnosis DOS Provider Status N3020 OTHER 12-16-2016 [facility] CHRONIC HEALTH CYSTITIS MEDICAL G WITHOUT HEMATURIA N419 INFLAMMATOR 12-16-2016 [facility] Y DISEASE HEALTH OF PROST[place] MEDICAL G UNSPECIFIED R319 HEMATURIA 12-02-2016 [facility] UNSPECIFIED HEALTH MEDICAL G N3001 ACUTE 10-02-2016 [facility] WITH INC HEMATURIA N3091 CYSTITIS 10-02-2016 [facility] HEMATURIA R1033 PERIUMBILIC 10-02-2016 [place] [facility] R300 DYSURIA 10-02-2016 [facility] Z5181 ENCOUNTER 09-05-2016 [facility] FOR THERAPEUTIC DRUG LEVEL MONITORING R02948 OTHER LONG 09-05-2016 MD LABS TERM CURRENT DRUG THERAPY Z0000 ENCOUNTER 09-04-2016 [facility] MED EXAM INC W/O ABNORMAL FIND M545 LOW BACK 09-03-2016 [facility] INC M5432 SCIATICA 08-22-2016 [facility] LEFT SIDE PHYSICIANS GROUP J0100 ACUTE 08-14-2016 [facility] MAXILLARY PHYSICIANS SINUSITIS GROUP UNSPECIFIED R509 FEVER 08-14-2016 [facility] UNSPECIFIED PHYSICIANS GROUP Z23 ENCOUNTER 08-14-2016 [facility] FOR PHYSICIANS IMMUNIZATIO GROUP N J34746 MIGRAINE 08-12-2016 [facility] UNS NOT PHYSICIANS INTRACT W/O GROUP STATUS MIGRAINOSUS R042 HEMOPTYSIS 08-12-2016 [facility] G4701 INSOMNIA 07-23-2016 [facility] DUE TO PHYSICIANS MEDICAL GROUP CONDITION G4710 HYPERSOMNIA 07-23-2016 [facility] UNSPECIFIED INC G4459 OTHER 07-14-2016 [facility] COMPLICATED PHYSICIANS HEADACHE GROUP SYNDROME G4700 INSOMNIA 07-14-2016 [facility] UNSPECIFIED PHYSICIANS GROUP Q66176 ACUTE 07-10-2016 [facility] POST-TRAUMA PHYSICIANS TIC GROUP HEADACHE INTRACTABLE R000 TACHYCARDIA 06-03-2016 [facility] PHYSICIANS UNSPECIFIED GROUP R9431 ABNORMAL 06-03-2016 [facility] [email or web address] [facility] 788.0 788.0 RENAL 05-17-2013 [place] COLIC [facility] 785.0 785.0 05-11-2013 [place] TACHYCARDIA [facility] 909.5 909.5 LATE 05-11-2013 [facility] DRUG,MEDICI NAL/BIOLOG SUBSTANCE E849.0 E849.0 05-11-2013 [place] ACCIDENT IN [facility] E932.0 E932.0 ADV 05-11-2013 [facility] OIDS E945.7 E945.7 ADV 05-11-2013 [facility] 535.00 535.00 04-19-2013 [facility] W/O MENTION OF HEMORRHAGE 276.52 276.52 01-22-2013 [place] HYPOVOLEMIA [facility] 83789 UNSPECIFIED 03-24-2012 [facility] VIRAL DON WARTS 0088 INTESTINAL 02-20-2012 DOMINIQUE R INFECTION H DUE TO OTHER ORGANISM NEC 70945 PAIN IN 02-08-2012 [place] [facility] REGION 7260 ADHESIVE 02-08-2012 AKILA NOLAN CAPSULITIS OF SHOULDER 48475 UNSPEC 02-08-2012 [facility] DISORDERS [facility] BURSAE&TEND INC ONS SHOULDER REGION 4779 ALLERGIC 01-05-2012 [facility] RHINITIS DON CAUSE UNSPECIFIED 5368 DYSPEPSIA&O 01-05-2012 [facility] THER SPEC DON DISORDERS FUNCTION STOMACH 4619 ACUTE 12-12-2011 [facility] SINUSITIS, LESLY UNSPECIFIED 7840 HEADACHE 12-12-2011 [facility] LESLY 4618 OTHER ACUTE 10-27-2011 [facility] SINUSITIS DON 4660 ACUTE 07-25-2011 [facility] BRONCHITIS DON 55572 SHORTNESS 07-22-2011 [facility] OF BREATH DON 7862 COUGH 07-22-2011 [facility] DON 04930 EPISODIC 07-15-2011 [facility] TENSION DON TYPE HEADACHE 7089 UNSPECIFIED 07-04-2011 [facility] URTICARIA DON 6989 UNSPECIFIED 07-01-2011 [facility] PRURITIC DON DISORDER 7821 RASH AND 07-01-2011 [facility] OTHER DON NONSPECIFIC SKIN ERUPTION 4659 ACUTE URIS 05-21-2011 [facility] OF DON UNSPECIFIED SITE 49572 HORDEOLUM 04-18-2011 [facility] EXTERNUM DON 92841 PAIN IN 03-01-2011 [place] [facility] LOWER LEG [facility] 9596 INJURY 03-01-2011 [facility] OTHER AND [facility]BUL[facility] UNSPECIFIED SERVICE HIP AND THIGH 3829 UNSPECIFIED 01-08-2011 [facility] OTITIS DON MEDIA 80487 REGULAR 12-09-2010 [facility] 7061 OTHER ACNE 10-21-2010 [facility] DON 7245 UNSPECIFIED 10-21-2010 [facility] BACKACHE DON 73028 STOMATITIS 09-11-2010 [facility] AND DON MUCOSITIS UNSPECIFIED 920 CONTUSION 08-21-2010 [place] OF FACE MEDICAL SCALP AND IMAGING ASS NECK EXCEPT EYE 83383 HEAD 08-21-2010 [facility] INJURY, DON UNSPECIFIED 20718 UNSPECIFIED 07-08-2010 [facility] INFECTION SERVICES IN CCE & UNS SITE V202 ROUTINE 04-29-2010 [facility] INFANT OR DON CHILD HEALTH CHECK 6929 CONTACT 04-12-2010 [facility], DERMATITIS& DON R OTHER ECZEMA DUE UNSPEC CAUSE 486 PNEUMONIA, 02-14-2010 [facility] UNSPECIFIED SERVICES ASSOCIATES 76053 ASTHMA, 02-14-2010 [facility]PEC[facility] , SERVICES UNSPECIFIED ASSOCIATES STATUS 462 ACUTE 02-04-2010 [place], [place] R [address] FEVER 02-04-2010 [facility], UNSPECIFIED DON R 7224 DEGENERATIO 11-16-2009 [place] N OF FAMILY CERVICAL CHIROPRACTI INTERVERTEB C RAL DISC 04552 DEGEN 11-16-2009 [place] LUMBAR/LUMB FAMILY OSACRAL CHIROPRACTI INTERVERTEB C RAL DISC 7386 ACQUIRED 11-16-2009 [place] DEFORMITY FAMILY OF PELVIS CHIROPRACTI C 7392 NONALLOPATH 11-16-2009 [place] IC LESION FAMILY OF THORACIC CHIROPRACTI REGION NEC C 5641 IRRITABLE 09-05-2009 [place] [facility] BOWEL SERV SYNDROME FOUNDATIO 67462 ABDOMINAL 09-05-2009 [place] [facility] PA[facility], LEFT SERV UPPER FOUNDATIO QUADRANT 67981 NAUSEA WITH 08-19-2009 [place] [facility] VOMITING SERV FOUNDATIO 7873 FLATULENCE 08-19-2009 [place] [facility] ERUCTATION SERV AND GAS FOUNDATIO PAIN 09412 OTHER SPEC 08-17-2009 [place] [facility] GASTRITIS SERV WITHOUT FOUNDATIO MENTION HEMORRHAGE 06483 SCHMORLS 08-17-2009 [place] [facility] NODES, SERV LUMBAR FOUNDATIO REGION 7329 UNSPECIFIED 08-17-2009 [place] [facility] SERV OSTEOCHONDR FOUNDATIO OPATHY 58810 LOSS OF 08-17-2009 [place] [facility] WEIGHT SERV F[facility] 01611 CHEST PAIN 08-17-2009 [place] [facility] UNSPECIFIED SERV FOUNDATIO 30589 VOMITING 08-17-2009 [place] [facility] ALONE SERV F[facility] 29131 ABDOMINAL 08-17-2009 [place] [facility] SERV UNSPECIFIED FOUNDATIO SITE 93233 ABDOMINAL 08-17-2009 [place] [facility] SERVICES EPIGASTRIC V1271 PERSONAL 08-17-2009 [place] [facility] HISTORY OF SERVICES PEPTIC ULCER DISEASE V161 FM HX 08-17-2009 [place] [facility] MALIGNANT SERV NEOPLASM FOUNDATIO TRACHEA BRONCHUS&[place] [address] UNSPECIFIED 08-16-2009 [place] [facility] CONSTIPATIO FOUNDATIO N 13556 OTHER 08-16-2009 [facility] DIS[facility] INTESTINES 47942 ABDOMINAL 08-16-2009 [place] [facility] [place] RIGHT SERV LOWER FOUNDATIO QUADRANT 2892 NONSPECIFIC 07-25-2009 [facility], [place] [address] ABDOMINAL 07-24-2009 ALLRAN JR, PAIN, TRAE F GENERALIZED 2869 OTHER AND 07-23-2009 ALLRAN JR, UNSPECIFIED TRAE F COAGULATION DEFECTS 10222 PEPTC ULCR 07-22-2009 [facility], UNS DON R ACUT/CHRN W/O HEMOR PERF/OBST 78726 ABDOMINAL 07-22-2009 [place] PAIN, LEFT MEDICAL LOWER IMAGING [facility] 5589 OTH&UNSPEC 07-16-2009 [facility], NONINFECTIO DON R US GASTROENTER ITIS&COLITI S 36697 ACUTE 07-15-2009 [facility] WITHOUT SERVICES MENTION OF ASSOCIATES HEMORRHAGE 7398 NONALLOPATH 06-29-2009 [place] LESION FAMILY OF RIB CAGE CHIROPRACTI NEC C 47337 METHICILLIN 06-13-2009 L[facility], RESISTANT DON R STAPHYLOCOC [...] 46 DE ZA 11 17 17 42 NC 0 88 PH IN AR E MA [...] 17 17 15 TA 1 80 PH RI AR N- MA CA CY FF OF [...] 04 05 6. 3 00 EA Ac NC 71 -0 -[address] ti [...] 46 DE ZA 11 17 17 42 NC 0 88 PH IN AR E MA 10 CY MG OF CY TA NT BL HI ET AN A IN C BU 00 03 04 28 4 00 EA Ac TA 14 -2 -[address] ti LB 31 0- 4- 00 00 SI ve -A 78 20 20 47 DE CE 70 17 17 15 TA 1 80 PH RI AR N- MA CA CY FF OF [...] 5 30 PH CE AR TA MA RI CY NO PH OF EN CY NT [...] 17 17 15 TA 1 80 PH RI AR N- MA CA CY FF OF 50 CY -3 NT 25 HI -4 AN 0 A IN C CY 00 02 03 30 10 00 EA Ac CL 37 -1 -[address] ti OB 80 9- 7- 00 00 SI ve EN 75 20 20 46 DE ZA 11 17 17 42 NC 0 88 PH IN AR E MA [...] 17 17 15 TA 1 80 PH RI AR N- MA CA CY FF OF 50 CY -3 NT 25 HI -4 AN 0 A IN C CY 00 01 02 30 10 00 EA Ac CL 37 -1 -[address] ti OB 80 8- 7- 00 00 SI ve EN 75 20 20 46 DE ZA 11 17 17 42 NC 0 88 PH IN AR E MA [...] 01 02 14 7 00 EA Ac NC 71 -1 -[address] ti [...] 2 09 PH CE AR TA MA RI CY NO PH OF EN CY NT [...] 17 17 15 TA 1 80 PH RI AR N- MA CA CY FF OF [...] 46 DE ZA 11 16 17 42 NC 0 88 PH IN AR E MA [...] 16 17 85 TA 1 68 PH RI AR N- MA CA CY FF OF [...] 2 64 PH CE AR TA MA RI CY NO PH OF EN CY NT [...] Ac MG ti /M ve L AL NC 00 08 0 No OM 64 -0 ET 11 6- Lo DOSHI 49 20 ng ZI 53 13 er NE 5 Ac 25 ti ve MG /M L AM PU L ON 00 08 0 No DA 64 -0 NS 16 6- Lo ET 08 20 ng RO 02 13 er N 5 HC Ac L ti 4 ve MG /2 ML AL NC 51 08 0 No OM 07 -0 [...] 8- 8- 00 SI 53 HE ve NC 02 20 20 DE NS ED 20 [...] 09 11 11 E 9 PH DO NC AR N OP MA R CY 50 [...] 20 20 DE AT 61 11 11 RI E 0 PH CH 10 AR AE 0 MA L MG CY S CA OF PS UL CY E NT HI AN A AZ 00 02 02 0 6. 6 EA 21 GA Ac IT 09 -2 -[address] 45 IN ti HR 37 8- 8- 0 SI 35 EY ve OM 14 20 20 DE YC 61 11 11 RI IN 8 PH CH AR AE 25 [...] 0- 0- 00 SI 03 HE ve NC 02 20 20 DE NS ED 20 [...] 20 AI YC 00 10 10 D RI IN 1 PH CH AR AE 25 MA L 0 CY S MG 03 TA 93 BL 8 ET # 03 93 ME 00 06 06 21 6 RI 83 GA Ac TH 60 -0 -0 .0 TE 66 IN ti YL 34 3- 3- 00 06 EY ve NC 59 20 20 AI ED 31 10 10 D RI NI 5 PH CH SO AR AE [...] 8- 4- 00 SI 19 HE ve NC 02 20 20 DE NS ED 20 [...] complet BldC 013 mg/dl ed Glucomt 22:52 [facility] Procedures Procedure DOS Code Location Performer Comment BLDR 90684 [facility] ART IRRIGATIO 7 [facility] N SMPL [facility]ICAL LAVAGE G &/INSTLJ THERAPEUT 37292 [facility] ART IC 7 NE HEALTH PROPHYLAC MEDICAL TIC/DX G INJECTION SUBQ/IM INJECTION J1580 [facility] 7 NE HEALTH GARAMYCIN MEDICAL G GENTAMICI N UP TO 80 MG CYSTOURET 82699 [facility] ART HROSCOPY 7 NE HEALTH MEDICAL G URNLS DIP 16777 [facility] ART 7 NE HEALTH STICK/TAB MEDICAL LET RGNT G AUTO W/O MICROSCOP Y URNLS DIP 05097 [facility] 7 NE HEALTH STICK/TAB MEDICAL LET RGNT G AUTO W/O MICROSCOP Y CULTURE 66381 [facility] BACTERIAL 7 [facility] INC INC QUANTTATI VE COLONY COUNT URINE COMPREHEN 92660 [facility] SIVE 7 [facility] [place] [address] [facility] INFUSION 7 [facility] THERAPY/P INC INC ROPHYLAXI S /DX 1ST TO 1 HR THERAPEUT 35403 [facility] SPAULDING IC 7 [facility] INJECTION INC IV PUSH EACH NEW DRUG URNLS DIP 79206 [facility] STICK/TAB INC INC LET REAGENT AUTO MICROSCOP Y BLOOD 27716 [facility] COUNT 7 [facility] COMPLETE INC INC AUTO&[place] [address] ZANE CHEN ABDOMEN & 7 MEDICAL PELVIS IMAGING W/O ASS CONTRAST MATERIAL DRUG TST G0483 MD LABS MD LABS DEFINITV 6 DR ID METH P DAY 22/MORE DR ENMANUEL ROSEN 91784 [facility] SIVE 6 [facility] METABOLIC INC INC PANEL BLOOD 97524 [facility] COUNT 6 [facility] COMPLETE INC INC AUTO&AUTO DIFRNTL WBC PHYSICAL 92686 [facility] THERAPY 6 [facility] EVALUATIO INC INC N RADEX 37257 S[facility] SPINE 6 [facility] LUMBOSACR INC INC AL MINIMUM 4 VIEWS THERAPEUT 45288 [facility] STONE JEROD IC 6 PHYSICIAN PROPHYLAC S GROUP TIC/DX INJECTION SUBQ/IM INJECTION J1100 [facility] STONE JEROD 6 PHYSICIAN DEXAMETHO S GROUP SONE SODIUM PHOSPHATE 1 MG INJECTION J0696 [facility] STONE JEROD 6 PHYSICIAN CEFTRIAXO S GROUP NE SODIUM PER 250 MG INJECTION J1040 [facility] STONE JEROD 6 PHYSICIAN METHYLPRE S GROUP DNISOLONE ACETATE 80 MG IIV3 21335 [facility] ST[facility] VACCINE 6 PHYSICIAN SPLIT S GROUP VIRUS 0.5 ML DOSAGE IM USE IM ADM 30412 [facility] PRQ ID 6 PHYSICIAN SUBQ/IM S GROUP NJXS 1 VACCINE RADIOLOGI 99194 [facility] GUST[facility] ALL C EXAM 6 MEDICAL CHEST 2 IMAGING VIEWS ASS FRONTAL&L ATERAL POLYSOM 73493 [facility] PAVEZ 6/>YRS 6 PHYSICIAN SLEEP 4/> S GROUP ADDL RUDDY ATTND THERAPEUT 09420 [facility] STONE JEROD IC 6 PHYSICIAN PROPHYLAC S GROUP TIC/DX INJECTION SUBQ/IM INJECTION J1885 [facility] STONE JEROD 6 PHYSICIAN KETOROLAC S GROUP TROMETHAM INE PER 15 MG ECG 36587 [facility] ROUTINE 6 [facility] ECG INC INC W/LEAST 12 LDS TRCG ONLY W/O I&R ECHO 42266 [facility] TTHRC R-T 6 [facility] 2D INC INC W/WOM-MOD E COMPL SPEC&COLR D ECHO 04231 [facility] TRANSTHOR 6 MEDICAL C R-T 2D SERV W/WO FOUNDATIO M-MODE N REC F-UP/LMTD DRUG TST G0477 [facility] PRESUMP;C 6 [facility] PBL BEING INC INC READ DC OPT OBV ONLY BLOOD 41187 DOMINIQUE DOMINIQUE COUNT 2 R H R H COMPLETE AUTO&AUTO DIFRNTL WBC RADEX 82947 [place] [facility] 2 MEDICAL BRENDAN COMPLETE IMAGING MINIMUM 2 ASS VIEWS BLOOD 97720 FAMILY FAMILY COUNT 2 CARE CARE COMPLETE ASSOCIATE ASSOCIATE AUTO&AUTO S S DIFRNTL WBC PRESSURIZ 01580 [facility] HANEY ED/NONPRE 1 DON DON SSURIZED INHALATIO N TREATMENT RADIOLOGI 51226 [facility] C 1 DON DON EXAMINATI ON CHEST SINGLE VIEW FRONTAL RADIOLOGI 40032 [facility] C 1 MEDICAL BRENDAN EXAMINATI IMAGING ON KNEE 3 ASS VIEWS GROUND A0425 [facility] MILEAGE 1 AMBULANCE AMBULANCE PER SERVICE SERVICE STATUTE MILE AMBULANCE A0429 [facility] SERVICE 1 AMBULANCE AMBULANCE BLS SERVICE SERVICE EMERGENCY TRANSPORT FRAMES V2020 [facility] PURCHASES 1 VISION 1 VISN V2103 [facility] PLANO 1 VISION TO+/-4.00 D SPHER 0.12-2.00 D CYL EA FITTING 81137 [facility] OCHOAMILADY SHEIKH SPECTACLE 1 VISION S XCPT APHAKIA MONOFOCAL OPHTH 87468 [facility] MEDICAL 1 VISION XM&EVAL COMPRE NEW PT 1/> [place] [address] [facility] INFUSION 1 [facility] THERAPY/P INC INC ROPHYLAXI S /DX 1ST TO 1 HR RADIOLOGI 87433 [facility] Yañez EXAM 1 [facility] CHEST 2 INC INC VIEWS FRONTAL&L ATERAL BLOOD 21591 [facility] COUNT 1 [facility] COMPLETE INC INC AUTO&AUTO DIFRNTL WBC COMPREHEN 32944 [facility] SIVE 1 [facility] [address] [facility] STREPTOCO 1 [facility] CCUS INC INC GROUP A IAADI 06069 S[facility] INFLUENZA 1 [facility] B VIRUS INC INC IAADI 84630 [facility] INFFLUENZ 1 [facility] A A VIRUS INC INC 3D 70478 S[facility] RENDERING 0 [facility] W/INTERP INC INC & [place] [address] [facility] HEAD/BRAI 0 [facility] N W/[place] [address] S[facility] INFUSION 0 [facility] THERAPY/P INC INC ROPHYLAXI S /DX 1ST TO 1 HR IAADI 02716 [facility] INFFLUENZ 0 [facility] A A VIRUS INC INC IAADI 62811 S[facility] INFLUENZA 0 [facility] B VIRUS INC INC COMPREHEN 23451 [facility] SIVE 0 [facility] METABOLIC INC INC PANEL BLOOD 19138 [facility] COUNT 0 [facility] COMPLETE INC INC AUTO&AUTO DIFRNTL WBC BLOOD 16888 [facility] COUNT 0 [facility] COMPLETE INC INC AUTO&[place] [address] [facility] INFUSION 0 [facility] THERAPY/P INC INC ROPHYLAXI S /DX 1ST TO 1 HR RADIOLOGI 05709 [facility] C EXAM 0 [facility] CHEST 2 INC INC VIEWS FRONTAL&L ATERAL PRESSURIZ 23016 [facility] ED/NONPRE 0 [facility] SSURIZED INC INC INHALATIO N TREATMENT BLOOD 23122 [facility] COUNT 0 [facility] COMPLETE INC INC AUTO&AUTO DIFRNTL WBC BASIC 62868 [facility] METABOLIC 0 [facility] PANEL INC INC CALCIUM TOTAL IAADI 79115 [facility] INFFLUENZ 0 [facility] A A VIRUS INC INC IAADI 05692 [facility] INFLUENZA 0 [facility] B VIRUS INC INC IAADIADOO 31076 HANEY, HANEY, 0 DON R DON R STREPTOCO CCUS GROUP A APPL 26806 JAN CHEATHAM, MODALITY 0 FAMILY ARNOLD H 1/> AREAS CHIROPRAC TRACTION TIC MECHANICA L STRAPPING 54069 JAN CHEATHAM, THORAX 0 FAMILY ARNOLD H CHIROPRAC TIC CHIROPRAC 86195 JAN CHEATHAM, TIC 0 FAMILY ARNOLD H MANIPULAT CHIROPRAC [place] TIC SPINAL 3-4 REGIONS THERAPEUT 73630 JAN CHEATHAM, IC PX 1/> 0 FAMILY ARNOLD H AREAS CHIROPRAC EACH 15 TIC MIN EXERCISES THERAPEUT 12953 JAN CHEATHAM, IC PX 1/> 0 FAMILY ARNOLD H AREAS CHIROPRAC EACH 15 TIC MIN EXERCISES CHIROPRAC 30958 JAN CHEATHAM, TIC 0 FAMILY ARNOLD H MANIPULAT CHIROPRAC KEREN TX TIC SPINAL 3-4 REGIONS MANUAL 81142 JAN CHEATHAM, THERAPY 0 FAMILY ARNOLD H TQS 1/> CHIROPRAC REGIONS TIC EACH 15 MINUTES STRAPPING 05692 JAN CHEATHAM, THORAX 0 FAMILY ARNOLD H CHIROPRAC TIC APPL 26575 JAN CHEATHAM, MODALITY 0 FAMILY ARNOLD H 1/> AREAS CHIROPRAC TRACTION TIC MECHANICA L APPL 50136 JAN CHEATHAM, MODALITY 0 FAMILY ARNOLD H 1/> AREAS CHIROPRAC ELEC TIC STIMJ UNATTENDE D APPL 31561 JAN CHEATHAM, MODALITY 0 FAMILY ARNOLD H 1/> AREAS CHIROPRAC TRACTION TIC MECHANICA L STRAPPING 56537 JAN CHEATHAM, THORAX 0 FAMILY ARNOLD H CHIROPRAC TIC MANUAL 32238 JAN CHEATHAM, THERAPY 0 FAMILY ARNOLD H TQS 1/> CHIROPRAC REGIONS TIC EACH 15 MINUTES CHIROPRAC 24708 JAN CHEATHAM, TIC 0 FAMILY ARNOLD H MANIPULAT CHIROPRAC KEREN TX TIC SPINAL 3-4 REGIONS THERAPEUT 23361 JAN CHEATHAM, IC PX 1/> 0 FAMILY ARNOLD H AREAS CHIROPRAC EACH 15 TIC MIN EXERCISES THERAPEUT 75260 JAN CHEATHAM, IC PX 1/> 0 FAMILY ARNOLD H AREAS CHIROPRAC EACH 15 TIC MIN EXERCISES MANUAL 13933 JAN CHEATHAM, THERAPY 0 FAMILY ARNOLD H TQS 1/> CHIROPRAC REGIONS TIC EACH 15 MINUTES CHIROPRAC 42628 JAN CHEATHAM, TIC 0 FAMILY ARNOLD H MANIPULAT CHIROPRAC [place] TIC SPINAL 3-4 REGIONS STRAPPING 17578 JAN CHEATHAM, THORAX 0 FAMILY AR[facility] H CHIROPRAC TIC APPL 13002 JAN CHEATHAM, MODALITY 0 FAMILY ARNOLD H 1/> AREAS CHIROPRAC TRACTION TIC MECHANICA L MANUAL 79904 JAN CHEATHAM, THERAPY 0 FAMILY AR[facility] H TQS 1/> CHIROPRAC REGIONS TIC EACH 15 MINUTES STRAPPING 35993 JAN CHEATHAM, THORAX 0 FAMILY [facility] H CHIROPRAC TIC CHIROPRAC 20138 JAN CHEATHAM, TIC 0 FAMILY [facility] H MANIPULAT CHIROPRAC [place] TIC SPINAL 3-4 REGIONS THERAPEUT 91238 JAN CHEATHAM, IC PX 1/> 0 FAMILY [facility] H AREAS CHIROPRAC EACH 15 TIC MIN EXERCISES THERAPEUT 88557 JAN CHEATHAM, IC PX 1/> 0 FAMILY [facility] H AREAS CHIROPRAC EACH 15 TIC MIN EXERCISES CHIROPRAC 74647 JAN CHEATHAM, TIC 0 FAMILY [facility] H MANIPULAT CHIROPRAC [place] TIC SPINAL 3-4 REGIONS STRAPPING 62898 JAN CHEATHAM, THORAX 0 FAMILY AR[facility] H CHIROPRAC TIC APPL 63193 JAN CHEATHAM, MODALITY 0 FAMILY ARNOLD H 1/> AREAS CHIROPRAC ELEC TIC STIMJ UNATTENDE D APPL 65189 JAN CHEATHAM, MODALITY 0 FAMILY ARNOLD H 1/> AREAS CHIROPRAC TRACTION TIC MECHANICA L APPL 35816 JAN CHEATHAM, MODALITY 0 FAMILY ARNOLD H 1/> AREAS CHIROPRAC ELEC TIC STIMJ EA 15 MIN APPL 85655 JAN CHEATHAM, MODALITY 0 FAMILY ARNOLD H 1/> AREAS CHIROPRAC TRACTION TIC MECHANICA L CHIROPRAC 28763 JAN CHAPARRITA, TIC 0 FAMILY [facility] H MANIPULAT CHIROPRAC [place] TIC SPINAL 3-4 REGIONS THERAPEUT 40905 JAN CHEATHAM, IC PX 1/> 0 FAMILY [facility] H AREAS CHIROPRAC EACH 15 TIC MIN EXERCISES THERAPEUT 88327 JAN CHEATHAM, IC PX 1/> 9 FAMILY [facility] H AREAS CHIROPRAC EACH 15 TIC MIN EXERCISES STRAPPING 36688 JAN CHEATHAM, LOW BACK 9 FAMILY ARN[facility] H CHIROPRAC TIC CHIROPRAC 45245 JAN CHEATHAM, TIC 9 FAMILY [facility] H MANIPULAT CHIROPRAC [place] TIC SPINAL 3-4 REGIONS APPL 39851 JAN CHEATHAM, MODALITY 9 FAMILY ARNOLD H 1/> AREAS CHIROPRAC TRACTION TIC MECHANICA L CHIROPRAC 28702 JAN CHEATHAM, TIC 9 FAMILY ARNOLD H MANIPLTV CHIROPRAC TX TIC EXTRASPIN AL 1/> [place] [address] MD GENET SURG 9 MEDICAL VALERY, E PATHOLOGY SERV [facility]&NOLAN ROSCOPIC EXAM COLONOSCO 40053 [facility] LINDSAY PY 9 MEDICAL R, W/BIOPSY SERV [facility] SINGLE/MU [facility]OUNDATIO [facility] 78073 [facility] DISCHARGE 9 MEDICAL R, DAY SERV [facility] MANAGEMEN FOUNDATIO T 30 MIN/< SBSQ 52978 [place] [address] MEDICAL R, CARE/DAY SERV [facility] 25 FOUNDATIO MINUTES ECG 70952 [place] [facility] ROUTINE 9 MEDICAL , ABELARDO ECG SERV J W/LEAST [facility]OUNDAT[facility] 12 LDS I&R ONLY EGD 17958 [place] [facility] TRANSORAL 9 MEDICAL R, BIOPSY SERV [facility] SINGLE/MU FOUND[facility] LTIPLE RADIOLOGI 57747 [place] [facility], C EXAM 9 MEDICAL AMBROSIO T CHEST 2 SERV VIEWS FOUNDATIO FRONTAL&L ATERAL INITIAL [address]1109 [place] [facility] 9 MEDICAL R, CARE/DAY SERV HAROHALLI 70 FOUNDATIO MINUTES RADEX 52358 [place] [facility], SPINE 9 MEDICAL AMBROSIO T LUMBOSACR SERV AL 2/3 FOUNDATIO VIEWS RADEX 22745 [place], SPINE 9 MEDICAL AMBROSIO T THORACIC SERV 2 VIEWS FOUNDATIO RADEX 28148 [place] JOD[place], ABDOMEN 1 9 MEDICAL VELIA G SERV ANTEROPOS FOUNDATIO TERIOR VIEW ANES 91435 [place] CENT[place] UPPER GI 9 MEDICAL , ZOHN N ENDOSCOPY [place] [address] [place], SURG 9 MEDICAL AYAD PATHOLOGY SERV J FOUNDATIO GROSS&NOLAN ROSCOPIC EXAM SPECIAL 42752 [place], STAIN 9 MEDICAL AYAD GROUP 1 SERV J MICROORGA FOUNDATIO NISMS I&R ESOPHAGOG 4516 [facility] 9 Y Y [facility] [place] [address] [place], ABDOMEN 9 MEDICAL AMBROSIO T W/CONTRAS SERV T FOUNDATIO [place] PELVIS [address] [place] R[place], 9 MEDICAL AMBROSIO T W/CONTRAS SERV T FOUNDATIO MATERIAL THERAPEUT 76824 JAN CHEATHAM, IC PX 1/> 9 [facility] CHIROPRAC EACH 15 TIC MIN EXERCISES CHIROPRAC 34739 GAEL ALVARENGA 9 FAMILY ARNLEONARDO H MANIPULAT CHIROPRAC [place]ER[place] TIC SPINAL 3-4 REGIONS APPL 24339 JAN CHEATHAM MODALITY 9 FAMILY ARNOLD H 1/> AREAS CHIROPRAC TRACTION TIC MECHANICA L APPL 45829 JAN CHEATHAM, MODALITY 9 FAMILY ARNOLD H 1/> AREAS CHIROPRAC ELEC TIC STIMJ UNATTENDE D APPL 16103 JAN CHEATHAM, MODALITY 9 FAMILY ARNOLD H 1/> AREAS CHIROPRAC ELEC TIC STIMJ EA 15 MIN CHIROPRAC 30171 JAN CHEATHAM, TIC 9 FAMILY ARNOLD H MANIPULAT CHIROPRAC KEREN TX TIC SPINAL 3-4 REGIONS APPL 98395 JAN CHEATHAM, MODALITY 9 FAMILY ARNOLD H 1/> AREAS CHIROPRAC TIC ULTRAVIOL ET APPL 94406 JAN CHEATHAM, MODALITY 9 FAMILY ARNOLD H 1/> AREAS CHIROPRAC ELEC TIC STIMJ UNATTENDE D APPL 38747 JAN CHEATHAM, MODALITY 9 FAMILY ARNOLD H 1/> AREAS CHIROPRAC TRACTION TIC MECHANICA L THERAPEUT 90242 JAN CHEATHAM, IC PX 1/> 9 FAMILY ARNOLD H AREAS CHIROPRAC EACH 15 TIC MIN EXERCISES HOSPITAL 97737 [facility] 9 DON R DON R DAY MANAGEMEN T 30 MIN/< SBSQ 36997 [facility] 9 JR JULIO, CARE/DAY TRAE [place] 25 MINUTES SBSQ 78369 [place] [address] DON R DON R CARE/DAY 25 MINUTES INITIAL 82592 [facility] INPATIENT 9 JRJR, CONSULT TRAE [place] NEW/ESTAB PT 80 MIN INITIAL 21692 [place] [address] DON R DON R CARE/DAY [address] PELVIS [address]385 [place], 9 MEDICAL DRAKE P W/[place] [address] [place], ABDOMEN 9 MEDICAL DRAKE P W/CONTRAS IMAGING T ASSOCIATE MATERIAL S RADEX 21935 [place], ABDOMEN 9 MEDICAL DRAKE P COMPL IMAGING W/DCBTS&/ ASSOCIATE ERC VIEWS S 3D 69279 [place], RENDERING 9 MEDICAL DRAKE P IMAGING W/INTERP& ASSOCIATE POSTPROC S DIFF WORK STATION 3D 45472 [facility] BORREGOMALU, RENDERING 9 MEDICAL ABELARDO IMAGING W/INTERP& ASSOCIATE POSTPROC S DIFF WORK STATION CT PELVIS 41402 [facility] BORREGOMALU, W/O 9 MEDICAL ABELARDO CONTRAST IMAGING MATERIAL ASSOCIATE S RADEX 45487 [facility] MALU, ABDOMEN 9 MEDICAL ABELARDO COMPL IMAGING W/DCBTS&/ [place] [address] [facility] MALU, ABDOMEN 9 MEDICAL ABELARDO W/[place] [address] [facility] INFUSION 9 [facility] THER INC INC PROPH ADDL SEQUENTIA L TO 1 [place] [address] [facility]ION 9 [facility] THERAPY/P INC INC ROPHYLAXI S /DX 1ST TO 1 HR BASIC 28598 [facility] METABOLIC 9 [facility] PANEL INC INC CALCIUM TOTAL URNLS DIP 29550 [facility] 9 [facility] STICK/TAB INC INC LET REAGENT AUTO MICROSCOP Y BLOOD 73681 [facility] COUNT 9 [facility] COMPLETE INC INC AUTO&AUTO DIFRNTL WBC CHIROPRAC 92052 RAFAELMARC BELL, TIC 9 FAMILY MORGAN C MANIPULAT CHIROPRAC KEREN TX TIC SPINAL 3-4 REGIONS APPL 22347 [place], MODALITY 9 FAMILY MORGAN C 1/> AREAS CHIROPRAC ELEC TIC STIMJ EA 15 MIN APPL 09749 [place] BE[place], MODALITY 9 FAMILY MORGAN C 1/> AREAS CHIROPRAC TRACTION TIC MECHANICA L CHIROPRAC 70576 [place] BE[place], TIC 9 FAMILY MORGAN C MANIPLTV CHIROPRAC TX TIC EXTRASPIN AL 1/> REGION THERAPEUT 22659 [place], IC PX 1/> 9 FAMILY MORGAN C AREAS CHIROPRAC EACH 15 TIC MIN EXERCISES THERAPEUT 46171 CYNTHIDARIEL BELL, IC PX 1/> 9 FAMILY MORGAN C AREAS CHIROPRAC EACH 15 TIC MIN EXERCISES CHIROPRAC 15015 [place] BE[place], TIC 9 FAMILY MORGAN C MANIPULAT CHIROPRAC KEREN [place] TIC SPINAL 3-4 REGIONS CHIROPRAC 30560 [place], TIC 9 FAMILY MORGAN C MANIPLTV CHIROPRAC TX TIC EXTRASPIN AL 1/> REGION APPL 51951 [place] BE[place], MODALITY 9 FAMILY MORGAN C 1/> AREAS CHIROPRAC TRACTION TIC MECHANICA L APPL 74324 [place], MODALITY 9 FAMILY MORGAN C 1/> AREAS CHIROPRAC ELEC TIC STIMJ EA 15 MIN APPL 49299 [place], MODALITY 9 FAMILY MORGAN C 1/> AREAS CHIROPRAC ELEC TIC STIMJ EA 15 MIN CHIROPRAC 80255 [place] BE[place], TIC 9 FAMILY MORGAN C MANIPULAT CHIROPRAC KEREN [place] TIC SPINAL 3-4 REGIONS APPL 23968 [place], MODALITY 9 FAMILY MORGAN C 1/> AREAS CHIROPRAC TRACTION TIC MECHANICA L CHIROPRAC 44300 [place], TIC 9 FAMILY MORGAN C MANIPLTV CHIROPRAC TX TIC EXTRASPIN AL 1/> REGION THERAPEUT 06590 [place] BE[place], IC PX 1/> 9 FAMILY MORGAN C AREAS CHIROPRAC EACH 15 TIC MIN EXERCISES RADEX 39646 [place], SPINE 9 FAMILY MORGAN C LUMBOSACR CHIROPRAC AL 2/3 TIC VIEWS CHIROPRAC 82691 [place], TIC 9 FAMILY MORGAN C MANIPULAT CHIROPRAC KEREN TX TIC SPINAL 3-4 REGIONS RADEX 82832 [place], SPINE 9 FAMILY MORGAN C CERVICAL CHIROPRAC 2 OR 3 TIC VIEWS CHIROPRAC 26909 [place] BE[place], TIC 9 FAMILY MORGAN C MANIPLTV CHIROPRAC TX TIC EXTRASPIN AL 1/> REGION APPL 78925 [place] BE[place], MODALITY 9 FAMILY MORGAN C 1/> AREAS CHIROPRAC TRACTION TIC MECHANICA L SELF-CARE 05576 [place] BELL, /HOME 9 FAMILY MORGAN C MGMT CHIROPRAC TRAINING TIC EACH 15 MINUTES CUL BACT 35868 [facility] XCPT 9 [facility] URINE INC INC BLOOD/STO OL AEROBIC ISOL CUL BACT 55415 [facility] AEROBIC 9 [facility] ADDL INC INC METHS DEFINITIV E EA ISOL SUSCEPTIB 85097 [facility] LTY STDY 9 [facility] ANTIMICRB INC INC IAL MICRO/AGA R DILUTJ BLOOD 18745 FAMILY ROSARIO, COUNT 9 CARE SANDRA T COMPLETE ASSOCIATE AUTO&AUTO S DIFRNTL WBC Encounters Encounter Start End Date Code Location Performer Type Date OFFICE 51608 [facility] OUTPATIEN 7 7 [facility] T VISIT MEDICAL 10 G MINUTES OFFICE 52861 [facility] ART CONSULTAT 7 7 [facility] ION MEDICAL NEW/ESTAB G PATIENT 60 MIN EMERGENCY 59181 DEL [facility] DEPT 7 7 PHYSICIAN VISIT S, PLLC HIGH SEVERITY& THREAT FUNCJ EMERGENCY 49910 [facility] 7 7 [facility] VISIT MODERATE SEVERITY HOSPITAL [facility] - 7 7 [facility] - 6 6 [facility] 6 6 [facility] OFF[facility] 04788 [facility] FRYMAN OUTPATIEN 6 6 PHYSICIAN T VISIT S GROUP 15 MINUTES HOSPITAL [facility] - 6 6 [facility] OUTPATIEN [facility] OFFICE 40445 [facility] STONE JEROD OUTPATIEN 6 6 PHYSICIAN T VISIT S GROUP 15 MINUTES OFFICE 21679 [facility] JEROD OUTPATIEN 6 6 PHYSICIAN T VISIT S GROUP 25 MINUTES HOSPITAL [facility] - 6 6 [facility] OUTPATIEN [facility] SERENA - 6 6 [facility] OUTPATIEN INC T OFFICE 83856 [facility] FRYMAN OUTPATIEN 6 6 PHYSICIAN EUG T VISIT S GROUP 15 MINUTES OFFICE 10355 [facility] STONE JEROD OUTPATIEN 6 6 PHYSICIAN T VISIT S GROUP 25 MINUTES OFFICE 54178 [facility] LEN OUTPATIEN 6 6 PHYSICIAN MAT T NEW 45 S GROUP MINUTES HOSPITAL [facility] - 6 6 [facility] OUTPATI[facility] INC T OFFICE 07758 [facility] FRYMAN OUTPATIEN 6 6 PHYSICIAN EUG T VISIT S GROUP 15 MINUTES HOSPITAL [facility] - 6 6 [facility] OUTPATIEN INC T Emergency TIBURCIO BEGUM (ER) 3 20:17 3 22:53 [facility] Emergency TIBURCIO Rg MD (ER) 3 22:11 3 23:26 [facility] Emergency TIBURCIO Mesa MD (ER) 3 23:50 3 00:04 [facility] Emergency TIBURCIO Rg MD (ER) 3 23:10 3 01:35 [facility] Emergency TIBURCIO Rg MD (ER) 3 22:23 3 00:41 [facility] OFFICE 08502 LYNDON HANEY OUTPATIEN 2 2 DON DON T VISIT 15 MINUTES OFFICE 96347 DOMINIQUE DOMINIQUE OUTPATIEN 2 2 R H R H T VISIT 15 MINUTES EMERGENCY 71256 [facility] 2 2 [facility] DEPARTMEN INC T VISIT LOW/MODER SEVERITY [facility]OSPITAL [facility] - 2 2 [facility] OUTPATIEN INC T EMERGENCY 03360 AKILA RG 2 2 NOLAN NOLAN DEPARTMEN T VISIT HIGH/URGE NT SEVERITY OFFICE 63066 HANEY HANEY OUTPATIEN 2 2 DON DON T VISIT 15 MINUTES OFFICE 72041 BEHZAD BEHZAD OUTPATIEN 2 2 LESLY LESLY T NEW 30 MINUTES OFFICE 92780 LYNDON LUQUES OUTPATIEN 2 2 DON DON T VISIT 15 MINUTES OFFICE 60923 LYNDON DE LEONHENS OUTPATIEN 2 2 DON DON T VISIT 15 MINUTES OFFICE 20524 FAMILY DOMINIQUE OUTPATIEN 2 2 CARE R H T VISIT ASSOCIATE 15 S MINUTES OFFICE 22874 [facility]ENS OUTPATIEN 2 2 DON DON T VISIT 15 MINUTES OFFICE 29161 [facility] [place] LE[facility]ENS OUTPATIEN 1 1 DON DON T VISIT 15 MINUTES OFFICE 25544 HANEY HANEY OUTPATIEN 1 1 DON DON T VISIT 25 MINUTES OFFICE 59275 HANEY HANEY OUTPATIEN 1 1 DON DON T VISIT 15 MINUTES OFFICE 92870 HANEY HANEY OUTPATIEN 1 1 DON DON T VISIT 15 MINUTES OFFICE 08483 HANEY HANEY OUTPATIEN 1 1 DON DON T VISIT 15 MINUTES OFFICE 59113 HANEY HANEY OUTPATIEN 1 1 DON DON T VISIT 15 MINUTES OFFICE 24844 HANEY HAENY OUTPATIEN 1 1 DON DON T VISIT 15 MINUTES OFFICE 30364 HANEY HANEY OUTPATIEN 1 1 DON DON T VISIT 15 MINUTES EMERGENCY 11837 [facility] 1 1 [facility] T [facility]IT H[facility] OUTPATIEN INC T OFFICE 45144 HANEY HANEY OUTPATIEN 1 1 DON DON T VISIT 15 MINUTES OFFICE 96289 LYNDON HANEY OUTPATIEN 0 0 DON DON T VISIT 15 MINUTES HOSPITAL [facility] - 0 0 [facility] OUTPATIEN INC T OFFICE 84655 LYNDON HANEY OUTPATIEN 0 0 DON DON T VISIT 15 MINUTES EMERGENCY 33950 [facility] 0 0 [facility] DEPARTMEN INC T VISIT MODERATE SEVERITY [facility]OSPITAL [facility] - 0 0 [facility] OUTPATIEN INC T EMERGENCY 51235 YOVANY RG 0 0 [facility] H[facility]URGE NT SEVERITY PERIODIC 77179 LYNDON HANEY PREVENTIV 0 0 DON DON E MED EST PATIENT OFFICE 62305 LYNDON HANEY OUTPATIEN 0 0 DON R DON R T VISIT 15 MINUTES HOSPITAL [facility] - 0 0 [facility] OUTPATIEN INC T EMERGENCY 84772 YOVANY RG, 0 0 [facility] HIGH/URGE ASSOCIATE NT S SEVERITY EMERGENCY 40690 [facility] 0 0 [facility] DEPARTMEN INC T VISIT MODERATE SEVERITY OFFICE 84918 LYNDON HANEY OUTPATIEN 0 0 DON R DON R T VISIT 15 MINUTES HOSPITAL [facility] - 0 0 [facility] OUTPATIEN INC T OFFICE 96751 LYNDON HANEY OUTPATIEN 0 0 DON R DON R T VISIT 15 MINUTES OFFICE 20069 JAN CHEATHAM OUTPATIEN 0 0 FAMILY JOSE MARIA H T VISIT CHIROPRAC 15 TIC MINUTES HOSPITAL [facility] OFFICE 98095 KMSF KELSI, ANGEL 9 9 NURSE NORMAN JAFFE/ESTAB NER GROUP PATIENT 60 MIN OFFICE 95841 LYNDON HANEY OUTPATIEN 9 9 DON R DON R T VISIT 15 MINUTES HOSPITAL S[facility] - 9 9 [facility] INPATIENT INC EMERGENCY 19757 YOVANY DE LA FUENTE DEPT 9 9 EMERGENCY III, VISIT SERVICES [facility] HIGH SEVERITY& ASSOCIATE THREAT S FUN OFFICE 26659 LYNDON HANEY OUTPATIEN 9 9 DON R DON R T VISIT 15 MINUTES OFFICE 37033 LYNDON HANEY OUTPATIEN 9 9 DON R DON R T VISIT 15 MINUTES EMERGENCY 53241 [facility] 9 9 [facility] T VISIT HIGH/URGE NT SEVERITY HOSPITAL [facility] - 9 9 [facility] OUTPATIEN INC T EMERGENCY 96078 YOVANY RG DEPT 9 9 EMERGENCY MARITA S VISIT SERVICES HIGH SEVERITY& ASSOCIATE THREAT S [facility] OFFICE 82075 LYNDON HANEY OUTPATIEN 9 9 DON R DON R T VISIT 15 MINUTES OFFICE 88647 DAE MENDEZ 9 9 FAMILY MORGAN C T NEW 20 CHIROPRAC MINUTES TIC OFFICE 22877 LYNDON HANEY OUTPATIEN 9 9 DON R DON R T VISIT 15 MINUTES OFFICE 26316 LYNDON HANEY OUTPATIEN 9 9 DON R DON R T VISIT 15 MINUTES HOSPITAL SERE[facility] - 9 9 [facility] OUTPATIEN INC T OFFICE 73407 LYNDON HANEY OUTPATIEN 9 9 DON R DON R T VISIT 15 MINUTES OFFICE 69522 FAMILY ROSARIODAE 9 9 CARE SANDRA T T VISIT ASSOCIATE 25 S MINUTES OFFICE 94805 L[facility]ON HANEY OUTPATIEN 9 9 DON R DON R T VISIT 15 MINUTES OFFICE 11228 LYNDON HANEY OUTPATIEN 9 9 DON R DON R T NEW 20 MINUTES
--- OUTSIDE RECORDS SUMMARY | 2017-01-25 14:24 | External Medical Summary Rpt ---
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 Name Role Phone AYAD MENSAH, Unavailable Unavailable AYAD MENSAH JR, CHARLES F, Unavailable Unavailable TRAE ZAMORA JR ART, ART Unavailable Unavailable CHEN, CHEN Unavailable Unavailable [facility] Unavailable Unavailable SERVICE, [facility] Unavailable Unavailable SERVICE, [facility] [place], ZOHN N, Unavailable Unavailable [facility], ZOHN N MALU BRENDAN, Unavailable Unavailable MALU BRENDAN MALU, ABELARDO, Unavailable Unavailable MALU, ABELARDO [facility], Unavailable Unavailable [facility] Unavailable Unavailable [place], [facility] [place] [facility] [place] Un[place] [facility] BEHZAD LESLY, Unavailable Unavailable BEHZAD LESLY BE[facility] LESLY, Unavailable Unavailable [facility] Un[facility], [facility] FRYMAN, FRYMAN Unavailable Unavailable FRYMAN EUG, FRYMAN Unavailable Unavailable EUG AKILA, AKILA Unavailable Unavailable AKILA NOLAN, AKILA Unavailable Unavailable NOLAN AKILA NOLAN, AKILA Unavailable Unavailable NOLAN MARITA WILBURN, Unavailable Unavailable MARITA WILBURN ARNOLD H, Unavailable Unavailable JOSE MARIA CHEATHAM [facility] Unavailable Unavailable [facility], [facility] OCHOA AGUILAR, OCHOA AGUILAR Unavailable Unavailable [facility], Unavailable Unavailable [facility] Un[facility], [facility] Unavailable Unavailable MEDICAL G, [facility] VELIA FELICIANO G, , Unavailable Unavailable [facility] Un[facility], [facility] GUIDO PABLO, Unavailable Unavailable GUIDO PABLO [facility] Unavailable Unavailable SERVICES, [facility], LABS Unavailable Unavailable LABS, LABS Unavailable Unavailable DRAKE MCGREGOR, Unavailable Unavailable DRAKE MCGREGOR BRIAN T, Unavailable Unavailable SANDRA PONCE NADIG VID, NADIG VID Unavailable Unavailable MORGAN BELL, Unavailable Unavailable MORGAN BELL DOMINIQUE R H, Unavailable Unavailable DOMINIQUE R H DOMIN[facility] R [facility], Unavailable Unavailable DOMINIQUE R H [facility], [facility] PAVEZ, PAVEZ Unavailable Unavailable [facility], AMBROSIO T, Unavailable Unavailable [facility], AMBROSIO T CHELLY SPAULDING Unavailable Unavailable [facility] Unavailable Unavailable [id number] [address] [id number], [facility] [id number] [address] [id number] ABELARDO GUDINO, Unavailable Unavailable ABELARDO GUDINO, Unavailable Unavailable ADELE NOLEN, HAROHALLI LEN MAT, Unavailable Unavailable LEN MAT HANEY DON, Unavailable Unavailable HANEY DON HANEY DON, Unavailable Unavailable HANEY DON HANEY, DON R, Unavailable Unavailable NATALIA HANEY R NORMAN DOLAN, Unavailable Unavailable NORMAN DOLAN, STONE JEROD Unavailable Unavailable [facility], Unavailable Unavailable [facility] Unavailable Unavailable [address]591, [facility] DYLON DE LA FUENTE III, Unavailable Unavailable DYLON DE LA FUENTE III, E MD, Unavailable Unavailable Home GODFREY MD Purpose Continuity of Care Document - 05-08-2009 through 2016 Problems Code Diagnosis DOS Provider Status N3020 OTHER 12-16-2016 [facility] CHRONIC HEALTH CYSTITIS MEDICAL G WITHOUT HEMATURIA N419 INFLAMMATOR 12-16-2016 [facility] Y DISEASE HEALTH OF PROST[place] MEDICAL G UNSPECIFIED R319 HEMATURIA 12-02-2016 [facility] UNSPECIFIED HEALTH MEDICAL G N3001 ACUTE 10-02-2016 [facility] WITH INC HEMATURIA N3091 CYSTITIS 10-02-2016 [facility]NSPECIFIED PHYSICIANS, WITH [facility] HEMATURIA R1033 PERIUMBILIC 10-02-2016 [facility] R300 DYSURIA 10-02-2016 [facility] Z5181 ENCOUNTER 09-05-2016 [facility] FOR THERAPEUTIC DRUG LEVEL MONITORING W15323 OTHER LONG 09-05-2016 LABS TERM CURRENT DRUG THERAPY Z0000 ENCOUNTER 09-04-2016 [facility] MED EXAM INC W/O ABNORMAL FIND M545 LOW BACK 09-03-2016 [facility] M5432 SCIATICA 08-22-2016 [facility] LEFT SIDE PHYSICIANS GROUP J0100 ACUTE 08-14-2016 [facility] MAXILLARY PHYSICIANS SINUSITIS GROUP UNSPECIFIED R509 FEVER 08-14-2016 [facility] UNSPECIFIED PHYSICIANS GROUP Z23 ENCOUNTER 08-14-2016 [facility] FOR PHYSICIANS IMMUNIZATIO GROUP N J35261 MIGRAINE 08-12-2016 [facility] UNS NOT PHYSICIANS INTRACT W/O GROUP STATUS MIGRAINOSUS R042 HEMOPTYSIS 08-12-2016 [facility] G4701 INSOMNIA 07-23-2016 [facility] DUE TO PHYSICIANS MEDICAL GROUP CONDITION G4710 HYPERSOMNIA 07-23-2016 [facility] UNSPECIFIED INC G4459 OTHER 07-14-2016 [facility] COMPLICATED PHYSICIANS HEADACHE GROUP SYNDROME G4700 INSOMNIA 07-14-2016 [facility] UNSPECIFIED PHYSICIANS GROUP [id number] ACUTE 07-10-2016 [facility] POST-TRAUMA PHYSICIANS TIC GROUP HEADACHE INTRACTABLE R000 TACHYCARDIA 06-03-2016 [facility] PHYSICIANS UNSPECIFIED GROUP R9431 ABNORMAL 06-03-2016 [employer] MEDICAL ELECTROCARD SERV Dailysingle 54729 UNSPECIFIED 03-24-2012 [facility] VIRAL DON WARTS 0088 INTESTINAL 02-20-2012 DOMINIQUE R INFECTION H DUE TO OTHER ORGANISM [facility] 38153 PAIN IN 02-08-2012 [place] [facility] MEDICAL SHOULDER IMAGING ASS REGION 7260 ADHESIVE 02-08-2012 [facility] CAPSULITIS OF SHOULDER 19915 UNSPEC 02-08-2012 [facility] DISORDERS [facility] BURSAE&TEND INC ONS SHOULDER REGION 4779 ALLERGIC 01-05-2012 [facility] RHINITIS DON CAUSE UNSPECIFIED 5368 DYSPEPSIA&O 01-05-2012 [facility] THER SPEC DON DISORDERS FUNCTION STOMACH 4619 ACUTE 12-12-2011 [facility] SINUSITIS, LESLY UNSPECIFIED 7840 HEADACHE 12-12-2011 [facility] LESLY 4618 OTHER ACUTE 10-27-2011 [facility] SINUSITIS DON 4660 ACUTE 07-25-2011 [facility] BRONCHITIS DON 02758 SHORTNESS 07-22-2011 [facility] OF BREATH DON 7862 COUGH 07-22-2011 [facility] DON 53662 EPISODIC 07-15-2011 [facility] TENSION DON TYPE HEADACHE 7089 UNSPECIFIED 07-04-2011 [facility] URTICARIA DON 6989 UNSPECIFIED 07-01-2011 [facility] PRURITIC DON DISORDER 7821 RASH AND 07-01-2011 [facility] OTHER DON NONSPECIFIC SKIN ERUPTION 4659 ACUTE URIS 05-21-2011 [facility] OF DON UNSPECIFIED SITE 46672 HORDEOLUM 04-18-2011 [facility] EXTERNUM DON 99551 PAIN IN 03-01-2011 [place] [facility] LOWER LEG IMAGING ASS 9596 INJURY 03-01-2011 [facility] OTHER AND [facility]BULANCE UNSPECIFIED SERVICE HIP AND THIGH 3829 UNSPECIFIED 01-08-2011 [facility] OTITIS DON MEDIA 39452 REGULAR 12-09-2010 [facility] 7061 OTHER ACNE 10-21-2010 [facility] DON 7245 UNSPECIFIED 10-21-2010 [facility] BACKACHE DON 45475 STOMATITIS 09-11-2010 [facility] AND DON MUCOSITIS UNSPECIFIED 920 CONTUSION 08-21-2010 [place] OF FACE MEDICAL SCALP AND IMAGING ASS NECK EXCEPT EYE 58616 HEAD 08-21-2010 [facility] INJURY, DON UNSPECIFIED 34509 UNSPECIFIED 07-08-2010 [facility]AL [facility] INFECTION SERVICES IN CCE & UNS SITE V202 ROUTINE 04-29-2010 [facility] INFANT OR DON CHILD HEALTH CHECK 6929 CONTACT 04-12-2010 [facility], DERMATITIS& DON R OTHER ECZEMA DUE UNSPEC CAUSE 486 PNEUMONIA, 02-14-2010 [facility] ORGANISM [facility]ERGENCY UNSPECIFIED SERVICES ASSOCIATES 74976 ASTHMA, 02-14-2010 [facility] UNSPECIFIED EMERGENCY , SERVICES UNSPECIFIED ASSOCIATES STATUS 462 ACUTE 02-04-2010 [facility], [place] R [address] FEVER 02-04-2010 [facility], UNSPECIFIED DON R 7224 DEGENERATIO 11-16-2009 [place] N OF FAMILY CERVICAL CHIROPRACTI INTERVERTEB C RAL DISC 58729 DEGEN 11-16-2009 [place] LUMBAR/LUMB FAMILY OSACRAL CHIROPRACTI INTERVERTEB C RAL DISC 7386 ACQUIRED 11-16-2009 [place] DEFORMITY FAMILY OF PELVIS CHIROPRACTI C 7392 NONALLOPATH 11-16-2009 [place] IC LESION FAMILY OF THORACIC CHIROPRACTI REGION NEC C 5641 IRRITABLE 09-05-2009 [place] [facility] BOWEL SERV SYNDROME FOUNDATIO 36562 ABDOMINAL 09-05-2009 [place] [facility] PA[facility], LEFT SERV UPPER FOUNDATIO QUADRANT 13278 NAUSEA WITH 08-19-2009 [place] [facility] VOMITING SERV [facility] 7873 FLATULENCE 08-19-2009 [place] [facility] ERUCTATION SERV AND GAS FOUNDAT[facility] PAIN 89440 OTHER SPEC 08-17-2009 [place] [facility] GASTRITIS SERV WITHOUT FOUNDATIO MENTION HEMORRHAGE 86692 SCHMORLS 08-17-2009 [place] [facility] NODES, SERV LUMBAR FOUNDATIO REGION 7329 UNSPECIFIED 08-17-2009 [place] [facility] OSTEOCHONDR FOUNDATIO OPATHY 23898 LOSS OF 08-17-2009 [place] [facility] WEIGHT [facility] 95891 CHEST PAIN 08-17-2009 [place] [facility] UNSPECIFIED SERV FOUNDAT[place] 59452 VOMITING 08-17-2009 [place] [facility] ALONE [facility] 47374 ABDOMINAL 08-17-2009 [place] [facility] SERV UNSPECIFIED FOUNDATIO SITE 79161 ABDOMINAL 08-17-2009 [place] [facility] SERVICES EPIGASTRIC V1271 PERSONAL 08-17-2009 [place] [facility] H[place]ORY OF SERVICES PEPTIC ULCER DISEASE V161 FM HX 08-17-2009 [place] [facility] MALIGNANT SERV NEOPLASM FOUNDATIO [place]ACHEA BRONCHUS&[place] [address] UNSPECIFIED 08-16-2009 [place] [facility] CONSTIPATIO FOUNDATIO N 66272 OTHER 08-16-2009 [facility] DISORDER OF INTESTINES 43746 ABDOMINAL 08-16-2009 [place] [facility] [place] RIGHT SERV LOWER FOUNDATIO QUADRANT 2892 NONSPECIFIC 07-25-2009 [facility] [place] [address] ABDOMINAL 07-24-2009 ALLRAN JR, PAIN, TRAE F GENERALIZED 2869 OTHER AND 07-23-2009 ALLRAN JR, UNSPECIFIED TRAE F COAGULATION DEFECTS 77365 PEPTC ULCR 07-22-2009 [facility] UNS DON R ACUT/CHRN W/O HEMOR PERF/OBST 06583 ABDOMINAL 07-22-2009 [place] [facility], LEFT MEDICAL LOWER IMAGING [facility] 5589 OTH&UNSPEC 07-16-2009 [facility], NONINFECTIO DON R US GASTROENTER ITIS&COLITI S 02589 ACUTE 07-15-2009 [facility] GASTRITIS EMERGENCY WITHOUT SERVICES MENTION OF ASSOCIATES HEMORRHAGE 7398 NONALLOPATH 06-29-2009 [place] IC LESION FAMILY OF RIB CAGE CHIROPRACTI NEC C 09408 METHICILLIN 06-13-2009 [facility] RESISTANT DON R STAPHYLOCOC CUS AUREUS 6826 CELLULITIS 06-04-2009 [facility], AND ABSCESS DON R OF LEG EXCEPT FOOT 4644 CROUP 06-01-2009 NATALIA HANEY R 460 ACUTE 05-31-2009 [facility] ITIS 9164 HIP THI 05-30-2009 [facility], LEG&ANK DON R INSECT BITE NONVENOMOUS W/O INF Medications Na ND Rx Da Fi Fi Am Da Di Ph RX Ph St me C No te ll ll ou ys ag ar # ys at rm s nt no ma ic us Or Da si cy ia de te s n re d PH 42 04 05 15 4 00 [...] 17 17 15 TA 1 80 PH CA AR N- MA CA CY FF OF 50 CY -3 NT 25 HI -4 AN 0 A IN C DE 64 04 05 30 30 00 EA Ac XT 72 -1 -[address] ti RO 00 8- 2- 00 00 SI ve AM 13 20 20 48 DE P- 21 17 17 37 AM 0 23 PH PH AR ET MA AM CY IN OF 10 CY NT MG HI AN TA A B IN C OX 00 04 05 20 5 00 EA Ac YC 40 -1 -[address] ti OD 60 9- 2- 00 00 SI ve ON 51 20 20 48 DE E- 20 17 17 40 AC 5 69 PH ET AR AM MA IN CY OP HE OF N CY 5- NT 32 HI 5 AN A IN C YANG 53 04 05 14 [...] 46 DE ZA 11 17 17 42 VA 0 88 PH IN AR E MA 10 CY MG OF CY TA NT BL HI ET AN A IN C CE 68 04 05 [...] HI AN CA A P IN C ES 51 03 05 30 30 00 EA Ac ZO 07 -3 -[address] ti PI 90 1- 5- 00 00 SI ve CL 41 20 20 47 DE ON 40 17 17 80 E 3 10 PH 3 AR MG MA CY TA BL OF ET CY NT HI AN A IN C PH 42 04 [...] 04 05 6. 3 00 EA Ac VA 71 -0 -[address] ti OF 40 6- 5- 0 00 SI ve LO 65 20 20 48 DE XA 20 17 17 27 CI 4 68 PH N AR HC MA L CY 50 0 OF MG CY NT TA HI B AN A IN C CY 00 03 04 30 10 00 EA Ac CL 37 -2 -[address] ti OB 80 0- 4- 00 00 SI ve EN 75 20 20 46 DE ZA 11 17 17 42 VA 0 88 PH IN AR E MA 10 CY MG OF CY TA NT BL HI ET AN A IN C BU 00 03 04 28 4 00 EA Ac TA 14 -2 -[address] ti LB 31 0- 4- 00 00 SI ve -A 78 20 20 47 DE CE 70 17 17 15 TA 1 80 PH CA AR N- MA CA CY FF OF 50 CY -3 NT 25 HI -4 AN 0 A IN C HY 00 03 04 [address] 40 -2 -[address] ti OC 60 1- 4- 00 00 SI ve OD 12 20 20 48 DE ON 30 17 17 06 -A 5 30 PH CE AR TA MA CA CY NO PH OF EN CY NT 5- HI 32 AN 5 A IN C DE 64 03 04 30 30 00 EA Ac XT 72 -2 -[address] ti RO 00 1- 4- 00 00 SI ve AM 13 20 20 48 DE P- 21 17 17 06 AM 0 31 PH PH AR ET MA AM CY IN OF 10 CY NT MG HI AN TA A B IN C GA 67 03 04 90 30 00 EA Ac BA 87 -2 -[address] ti PE 70 0- 4- 00 00 SI ve NT 22 20 20 47 DE IN 30 17 17 00 5 69 PH 30 AR 0 MA MG CY CA OF PS CY UL NT E HI AN A IN C DE 00 03 04 [...] HI AN CA A P IN C ES 51 03 03 30 30 00 EA Ac ZO 07 -0 -[address] ti PI 90 1- 4- 00 00 SI ve CL 41 20 20 47 DE ON 40 17 17 80 E 3 10 PH 3 AR MG MA CY TA BL OF ET CY NT HI AN A IN C D- 00 03 03 7. 7 00 EA Ac AM 37 -0 -[address] ti PH 81 1- 4- 0 00 SI ve ET 07 20 20 47 DE AM 20 17 17 80 IN 1 16 PH E AR ER MA CY 15 OF MG CY NT CA HI PS AN UL A E IN C CY 00 02 03 30 10 00 EA Ac CL 37 -1 -[address] ti OB 80 9- 7- 00 00 SI ve EN 75 20 20 46 DE ZA 11 17 17 42 VA 0 88 PH IN AR E MA [...] NT E HI AN A IN C DO 49 [...] CY NT HI AN A IN C DE 64 [...] 17 17 15 TA 1 80 PH CA AR N- MA CA CY FF OF 50 CY -3 NT 25 HI -4 AN 0 A IN C D- 00 02 03 [...] HI AN CA A P IN C CY 00 01 02 30 10 00 EA Ac CL 37 -1 -[address] ti OB 80 8- 7- 00 00 SI ve EN 75 20 20 46 DE ZA 11 17 17 42 VA 0 88 PH IN AR E MA 10 CY MG OF CY TA NT BL HI ET AN A IN C PH 42 01 02 10 [...] 01 02 14 7 00 EA Ac VA 71 -1 -[address] ti OF 40 9- 7- 00 00 SI ve LO 65 20 20 47 DE XA 20 17 17 31 CI 4 00 PH N AR HC MA L CY 50 0 OF MG CY NT TA HI B AN A IN C TR 16 01 [...] HI AN TA A B IN C GA 67 01 02 90 [...] 17 17 15 TA 1 80 PH CA AR N- MA CA CY FF OF 50 CY -3 NT 25 HI -4 AN 0 A IN C HY 00 01 02 9. [address] 60 -2 -[address] ti OC 33 7- 7- 0 00 SI ve OD 89 20 20 47 DE ON 03 17 17 40 -A 2 09 PH CE AR TA MA CA CY NO PH OF EN CY NT 5- HI 32 AN 5 A IN C DE 64 01 02 10 [...] CY NT HI AN A IN C ZO 16 01 02 7. 7 00 EA Ac LP 71 -1 -[address] ti ID 40 4- 3- 0 00 SI ve EM 62 20 20 47 DE 20 17 17 18 TA 2 89 PH RT AR RA MA TE CY 10 OF CY MG NT HI TA AN BL A ET IN C BU 00 01 01 18 3 00 EA Ac TA 14 -0 -[address] ti LB 31 6- 7- 00 00 SI ve -A 78 20 20 47 DE CE 70 17 17 15 TA 1 80 PH CA AR N- MA CA CY FF OF [...] 46 DE ZA 11 16 17 42 VA 0 88 PH IN AR E MA [...] 16 17 85 TA 1 68 PH CA AR N- MA CA CY FF OF [...] 2 64 PH CE AR TA MA CA CY NO PH OF EN CY NT [...] CY NT HI AN A IN C DI 00 10 10 0 28 7 [...] ST 55 EP ti YL 15 8- 8 00 SI 53 HE ve VA 02 20 20 DE NS ED 20 11 11 NI 7 PH DO SO AR N LO MA R NE CY 4 OF MG CY DO NT SE HI PK AN A AM 00 09 09 0 [address] Ac OX 78 -0 -[address] 99 EP ti IC 12 7- 7- 00 SI 88 HE ve IL 61 20 20 DE NS LI 30 11 11 N 5 PH DO 50 AR N 0 MA R MG CY CA OF PS UL CY E NT HI AN A LO 45 09 09 2 [address] Ac RA 80 -0 -[address] 99 EP ti TA 20 7- 7- 00 SI 89 HE ve DI 65 20 20 DE NS NE 08 11 11 7 PH DO 10 AR N MA R MG CY TA OF BL ET CY NT HI AN A AM 00 04 04 0 [address] Ac OX 78 -2 -[address] 29 EP ti IC 12 7- 7- 00 SI 21 HE ve IL 61 20 20 DE NS LI 30 11 11 N 5 PH DO 50 AR N 0 MA R MG CY CA OF PS UL CY E NT HI AN A FL 00 04 04 3 [address] Ac UT 05 -2 -[address] 29 EP ti IC 43 7- 7- 00 SI 22 HE ve 27 20 20 DE NS ON 09 11 11 E 9 PH DO VA AR N OP MA R CY 50 OF MC G CY SP NT RA HI Y AN A YANG 53 03 03 0 20 10 EA 21 WE Ac LF 74 -3 -[address] 92 HR ti AM 60 1 00 SI 28 MA ve ET 27 [...] 20 20 DE AT 61 11 11 CA E 0 PH CH 10 AR AE 0 MA L MG CY S CA OF PS UL CY E NT HI AN A AZ 00 02 02 0 6. 6 EA 21 GA Ac IT 09 -2 -[address] 45 IN ti HR 37 8- 8- 0 SI 35 EY ve OM 14 20 20 DE YC 61 11 11 CA IN 8 PH CH AR AE 25 MA L 0 CY S MG OF TA BL CY ET NT HI AN A 00 02 02 [address] Ac 06 -0 -[address] 13 EP ti 60 7 7 SI 38 HE ve 49 20 20 [...] .0 ST 58 EP ti AL 33 SI 36 HE ve EX 14 20 20 DE NS IN 70 10 10 5 PH DO 50 AR N 0 MA R MG CY CA OF PS UL CY E NT HI AN A NE 00 11 11 [address] Ac XI 18 -2 -[address] 17 EP ti UM 65 9 SI 02 HE ve 04 20 20 [...] UL CY E NT HI AN A ME 00 07 07 0 [address] Ac TH 78 -3 -[address] 53 EP ti YL 15 0- 0- 00 SI 03 HE ve VA 02 20 20 DE NS ED 20 10 10 NI 7 PH DO SO AR N LO MA R NE CY 4 OF MG CY DO NT SE HI PK AN A DE 51 07 07 [address] Ac SO 67 -3 -[address] 53 EP ti XI 21 0- 0- 00 SI 05 HE ve ME 27 20 20 DE NS TA 00 10 10 SO 1 PH DO NE AR N MA R 0. CY 25 % OF CR EA CY M NT HI AN A AZ 59 06 06 6. 5 RI 83 GA Ac IT 76 -0 -0 00 TE 66 IN ti HR 23 3- 3- 0 05 EY ve OM 06 20 20 AI YC 00 10 10 D CA IN 1 PH CH AR AE 25 MA L 0 CY S MG 03 TA 93 BL 8 ET # 03 93 ME 00 06 06 21 6 RI 83 GA Ac TH 60 -0 -0 .0 TE 66 IN ti YL 34 3- 3- 00 06 EY ve VA 59 20 20 AI ED 31 10 10 D CA NI 5 PH CH SO AR AE [...] BL ET CY NT HI AN A 68 03 03 [address] Ac 82 -1 -[address] 75 EP ti 00 2- 2- 00 SI 95 HE ve 06 20 20 DE NS 30 10 10 9 PH DO AR N MA R CY OF CY NT HI AN A 60 02 [...] MA R CY EY E OF DR REMA OP NT S HI AN A 00 [...] CY OF CY NT HI AN A 63 08 09 00 [...] CY EA NT M HI AN A ME 00 09 09 [address] Ac TH 78 -1 -[address] 32 EP ti YL 15 8- 4- 00 SI 19 HE ve VA 02 20 20 DE NS ED 20 [...] T OF CY NT HI AN A Immunization Name Date Route CVX Reacti Commen Provid Is Given on t er Refuse d IIV3 STONE No VACCIN 2016 JEROD E SPLIT VIRUS 0.5 ML DOSAGE IM USE Procedures Procedure DOS Code Location Performer Comment CYSTOURET 59[address] [facility] HROSCOPY [facility] MED[facility] G THERAPEUT 59074 [facility] ART IC [facility] PROPHYLAC MEDICAL TIC/DX G INJECTION SUBQ/IM BLDR 16668 [facility] ART IRRIGATIO 7 [facility] N SMPL MEDICAL LAVAGE G &/INSTLJ URNLS DIP 92936 [facility] ART 7 [facility] STICK/TAB MEDICAL LET RGNT G AUTO W/O MICROSCOP Y INJECTION J1580 [facility] 7 [facility] GARAMYCIN MEDICAL G GENTAMICI N UP TO 80 MG URNLS DIP 33777 [facility] ART 7 [facility] STICK/TAB MEDICAL LET RGNT G AUTO W/O MICROSCOP Y COMPREHEN 82669 [facility] METABOLIC INC INC PANEL CULTURE 43239 [facility] BACTERIAL [facility] INC INC QUANTTATI VE COLONY COUNT URINE URNLS DIP 24273 [facility] STICK/TAB INC INC LET REAGENT AUTO MICROSCOP Y BLOOD 79757 [facility] COUNT 7 [facility] COMPLETE INC INC AUTO&[place] [address] [facility] INFUSION 7 [facility] THERAPY/P INC INC ROPHYLAXI S /DX 1ST TO 1 HR THERAPEUT 55836 [facility] IC 7 [facility] [place]JE[place] [address] [place] [facility] & 7 MEDICAL PELVIS IMAGING W/O ASS CONTRAST MATERIAL DRUG TST G0483 [facility] LABS DEFINITV 6 DR ID METH P DAY 22/MORE DR CL COMPREHEN 43890 [facility] SIVE [facility] METABOLIC INC INC PANEL BLOOD 65588 [facility] COUNT 6 [facility] COMPLETE INC INC AUTO&AUTO DIFRNTL WBC PHYSICAL 97546 [facility] THERAPY 6 [facility] EVALUATIO INC INC N RADEX 33912 S[facility] M[facility]AON SPINE 6 [facility] LUMBOSACR INC INC AL MINIMUM 4 VIEWS INJECTION J1100 [facility] STONE JEROD 6 PHYSICIAN DEXAMETHO S GROUP SONE SODIUM PHOSPHATE 1 MG IM ADM 12611 [facility] STONE JEROD PRQ ID 6 PHYSICIAN SUBQ/IM S GROUP NJXS 1 VACCINE THERAPEUT 53645 [facility] STONE [facility] IC 6 PHYSICIAN PROPHYLAC S GROUP TIC/DX INJECTION SUBQ/IM IIV3 29862 [facility] STONE [facility] VACCINE 6 PHYSICIAN SPLIT S GROUP VIRUS 0.5 ML DOSAGE IM USE INJECTION J0696 [facility] STONE JEROD 6 PHYSICIAN CEFTRIAXO S GROUP NE SODIUM PER 250 MG INJECTION J1040 [facility] STONE [facility]ER[facility] 6 PHYSICIAN METHYLPRE S GROUP DNISOLONE ACETATE 80 MG RADIOLOGI 38880 [facility] C EXAM 6 [facility] CHEST 2 INC INC VIEWS FRONTAL&L ATERAL POLYSOM 01288 [facility] PAVEZ 6/>YRS 6 PHYSICIAN SLEEP 4/> S GROUP ADDL RUDDY ATTND THERAPEUT 35423 [facility] STONE [facility] IC 6 PHYSICIAN PROPHYLAC S GROUP TIC/DX INJECTION SUBQ/IM INJECTION J1885 [facility] STONE JER[facility] 6 PHYSICIAN KETOROLAC S GROUP TROMETHAM INE PER 15 MG ECHO 22241 [facility] TTHRC R-T 6 [facility] 2D INC INC W/WOM-MOD E COMPL SPEC&COLR D ECHO 76958 [place] [facility] V[facility] TRANSTHOR 6 MEDICAL C R-T 2D SERV W/WO FOUNDATIO M-MODE N REC F-UP/LMTD ECG 12940 [facility] ROUTINE 6 [facility]OS[facility] ECG INC INC W/LEAST 12 LDS TRCG ONLY W/O I&R DRUG TST G0477 [facility] PRESUMP;C 6 [facility] PBL BEING INC INC READ DC OPT OBV ONLY BLOOD 20678 DOM[facility] DOMINIQUE COUNT 2 R H R H COMPLETE AUTO&AUTO DIFRNTL WBC RADEX 67844 [facility] SHOULDER 2 [facility] COMPLETE INC INC MINIMUM 2 VIEWS BLOOD 73062 FAMILY FAMILY COUNT 2 CARE CARE COMPLETE ASSOCIATE ASSOCIATE AUTO&AUTO S S DIFRNTL WBC PRESSURIZ 19080 [facility] ED/NONPRE 1 DON DON SSURIZED INHALATIO N TREATMENT RADIOLOGI 32984 [facility] LUQUES C 1 DON DON EXAMINATI ON CHEST SING[place] FRONTAL RADIOLOGI 95861 [facility] TORIBIO C 1 MEDICAL BRENDAN EXAMINATI IMAGING ON KNEE 3 ASS VIEWS GROUND A0425 [facility] MILEAGE 1 AMBULANCE AMBULANCE PER SERVICE SERVICE STATUTE MILE AMBULANCE A0429 [facility] SERVICE 1 AMBULANCE AMBULANCE BLS SERVICE SERVICE EMERGENCY TRANSPORT FRAMES V2020 [facility] PURCHASES 1 VISION FITTING 60526 [facility] SPECTACLE 1 VISION S XCPT APHAKIA MONOFOCAL OPHTH 06584 [facility] MEDICAL 1 VISION XM&EVAL COMPRE NEW PT 1/> VST 1 VISN V2103 [facility] PLANO 1 VISION TO+/-4.00 D SPHER 0.12-2[place]00 [place] [address] [facility] STREPTOCO 1 [facility] CCUS INC INC GROUP A COMPREHEN 10359 [facility] SIVE 1 [facility] METABOLIC INC INC PANEL [facility]OLOGI 16524 [facility] EXAM 1 MEDICAL BRENDAN CHEST 2 IMAGING VIEWS ASS FRONTAL&L ATERAL BLOOD 12227 [facility] COUNT 1 [facility] COMPLETE INC INC AUTO&AUTO DIFRNTL WBC IAADI 35821 [facility] INFFLUENZ 1 [facility] A A VIRUS INC INC IAADI 96584 SERENA MORAON INFLUENZA 1 [facility] [place] [address] SERENA L[facility]ONS INFUSION 1 [facility] THERAPY/P INC INC ROPHYLAXI S /DX 1ST [place] [address] [place] [address] ZANE BORREGOUTCHER HEAD/BRAI 0 MEDICAL BRENDAN N W/O IMAGING CONTRAST ASS MATERIAL 3D 78231 [facility] RENDERING 0 [facility] W/INTERP INC INC & POSTPROCE SS SUPERVISI ON COMPREHEN 55730 [facility] SIVE 0 [facility] METABOLIC INC INC PANEL IAADI 89473 SERENA L[facility] INFLUENZA 0 [facility] B VIRUS INC INC IAADI 61212 SERENA L[facility] INFFLUENZ 0 [facility] [place] [address] SERENA LYONS INFUSION 0 [facility] THERAPY/P INC INC ROPHYLAXI S /DX 1ST TO 1 HR BLOOD 29547 [facility] COUNT 0 [facility] COMPLETE INC INC AUTO&AUTO DIFRNTL WBC BLOOD 99117 [facility] COUNT 0 [facility] COMPLETE INC INC AUTO&AUTO DIFRNTL WBC PRESSURIZ 03745 SERENA L[facility]ONS ED/NONPRE 0 [facility] SSURIZED [place] [address] SERENA LYONS INFUSION 0 [facility] THERAPY/P INC INC ROPHYLAXI S /DX 1ST TO 1 HR RADIOLOGI 02874 ZANE MALU, C EXAM 0 MEDICAL ABELARDO CHEST 2 IMAGING VIEWS ASSOCIATE FRONTAL&L S ATERAL IAADI 28891 SERENA [facility] INFFLUENZ 0 [facility] A A VIRUS INC INC IAADI 30248 SERENA L[facility]ONS INFLUENZA 0 [facility] B VIRUS INC INC IAADIADOO 16311 LYNDON HANEY, 0 DON R DON R STREPTOCO CCUS GROUP A BASIC 25666 SERENA LYONS METABOLIC 0 [facility] PANEL INC INC CALCIUM TOTAL BLOOD 85280 SERENA LYONS COUNT 0 [facility] COMPLETE INC INC AUTO&AUTO DIFRNTL WBC STRAPPING 57141 JAN CHEATHAM, THORAX 0 FAMILY ARNOLD H CHIROPRAC TIC CHIROPRAC 99947 JAN CHEATHAM, TIC 0 FAMILY ARNOLD H MANIPULAT CHIROPRAC KEREN TX TIC SPINAL 3-4 REGIONS APPL 73297 JAN CHEATHAM, MODALITY 0 FAMILY ARNOLD H 1/> AREAS CHIROPRAC TRACTION TIC MECHANICA L THERAPEUT 75475 JAN CHEATHAM, IC PX 1/> 0 FAMILY ARNOLD H AREAS CHIROPRAC EACH 15 TIC MIN EXERCISES THERAPEUT 63660 JAN CHEATHAM, IC PX 1/> 0 FAMILY ARNOLD H AREAS CHIROPRAC EACH 15 TIC MIN EXERCISES APPL 89876 JAN CHEATHAM, MODALITY 0 FAMILY ARNOLD H 1/> AREAS CHIROPRAC TRACTION TIC MECHANICA L MANUAL 64261 JAN CHEATHAM, THERAPY 0 FAMILY ARNOLD H TQS 1/> CHIROPRAC REGIONS TIC EACH 15 MINUTES STRAPPING 74414 JAN CHEATHAM, THORAX 0 FAMILY ARNOLD H CHIROPRAC TIC CHIROPRAC 19831 JAN CHEATHAM, TIC 0 FAMILY ARNOLD H MANIPULAT CHIROPRAC [place]EN [place] TIC SPINAL 3-4 REGIONS APPL 23134 JAN CHEATHAM, MODALITY 0 FAMILY ARNOLD H 1/> AREAS CHIROPRAC ELEC TIC STIMJ UNATTENDE D MANUAL 14921 JAN CHEATHAM, THERAPY 0 FAMILY ARNOLD H TQS 1/> CHIROPRAC REGIONS TIC EACH 15 MINUTES STRAPPING 70789 JAN CHEATHAM, THORAX 0 FAMILY ARNOLD H CHIROPRAC TIC CHIROPRAC 05931 JAN CHEATHAM, TIC 0 FAMILY ARNOLD H MANIPULAT CHIROPRAC [place] TIC SPINAL 3-4 REGIONS APPL 61689 JAN CHEATHAM, MODALITY 0 FAMILY ARNOLD H 1/> AREAS CHIROPRAC TRACTION TIC MECHANICA L THERAPEUT 25988 JAN CHEATHAM, IC PX 1/> 0 FAMILY ARNOLD H AREAS CHIROPRAC EACH 15 TIC MIN EXERCISES THERAPEUT 36581 JAN CHEATHAM, IC PX 1/> 0 FAMILY ARNOLD H AREAS CHIROPRAC EACH 15 TIC MIN EXERCISES APPL 77222 JAN CHEATHAM, MODALITY 0 FAMILY ARNOLD H 1/> AREAS CHIROPRAC TRACTION TIC MECHANICA L CHIROPRAC 35881 JAN CHEATHAM, TIC 0 FAMILY ARNOLD H MANIPULAT CHIROPRAC [place] TIC SPINAL 3-4 REGIONS STRAPPING 09300 JAN CHEATHAM, THORAX 0 FAMILY ARNOLD H CHIROPRAC TIC MANUAL 07998 JAN CHEATHAM, THERAPY 0 FAMILY ARNOLD H TQS 1/> CHIROPRAC REGIONS TIC EACH 15 MINUTES STRAPPING 01094 JAN CHEATHAM, THORAX 0 FAMILY ARNOLD H CHIROPRAC TIC MANUAL 41296 JAN CHEATHAM, THERAPY 0 FAMILY ARNOLD H TQS 1/> CHIROPRAC REGIONS TIC EACH 15 MINUTES CHIROPRAC 15174 JAN CHEATHAM, TIC 0 FAMILY ARNOLD H MANIPULAT CHIROPRAC [place] TX TIC SPINAL 3-4 REGIONS THERAPEUT 48299 JAN CHEATHAM, IC PX 1/> 0 FAMILY ARNOLD H AREAS CHIROPRAC EACH 15 TIC MIN EXERCISES THERAPEUT 70318 JAN CHEATHAM, IC PX 1/> 0 FAMILY ARNOLD H AREAS CHIROPRAC EACH 15 TIC MIN EXERCISES APPL 31266 JAN CHEATHAM, MODALITY 0 FAMILY ARNOLD H 1/> AREAS CHIROPRAC TRACTION TIC MECHANICA L APPL 77602 JAN CHEATHAM, MODALITY 0 FAMILY ARNOLD H 1/> AREAS CHIROPRAC ELEC TIC STIMJ UNATTENDE D CHIROPRAC 57844 JAN CHEATHAM, TIC 0 FAMILY ARNOLD H MANIPULAT CHIROPRAC [place] TIC SPINAL 3-4 REGIONS APPL 10118 JAN CHEATHAM, MODALITY 0 FAMILY ARNOLD H 1/> AREAS CHIROPRAC ELEC TIC STIMJ EA 15 MIN STRAPPING 48110 JAN CHEATHAM, THORAX 0 FAMILY ARNOLD H CHIROPRAC TIC CHIROPRAC 88317 JAN CHEATHAM, TIC 0 FAMILY ARNOLD H MANIPULAT CHIROPRAC [place] TIC SPINAL 3-4 REGIONS APPL 03302 JAN CHEATHAM, MODALITY 0 FAMILY ARNOLD H 1/> AREAS CHIROPRAC TRACTION TIC MECHANICA L THERAPEUT 00914 JAN CHEATHAM, IC PX 1/> 0 FAMILY ARNOLD H AREAS CHIROPRAC EACH 15 TIC MIN EXERCISES THERAPEUT 29310 JAN CHEATHAM, IC PX 1/> 9 FAMILY ARNOLD H AREAS CHIROPRAC EACH 15 TIC MIN EXERCISES APPL 05029 JAN CHEATHAM, MODALITY 9 FAMILY ARNOLD H 1/> AREAS CHIROPRAC TRACTION TIC MECHANICA L STRAPPING 50196 JAN CHEATHAM, LOW BACK 9 FAMILY ARNOLD H CHIROPRAC TIC CHIROPRAC 38381 JAN CHEATHAM, TIC 9 FAMILY ARNOLD H MANIPULAT CHIROPRAC [place] TIC SPINAL 3-4 REGIONS CHIROPRAC 95023 JAN CHEATHAM, TIC 9 FAMILY ARNOLD H MANIPLTV CHIROPRAC TX TIC EXTRASPIN AL 1/> REGION COLONOSCO 30517 [facility] 9 MEDICAL R, W/BIOPSY SERV HARCAALLI SINGLE/[place] [address] [place] GENET SURG 9 MEDICAL VALERY, E PATHOLOGY SERV FOUNDATIO [facility] 88373 [facility] DISCHARGE 9 MEDICAL R, DAY SERV HAROHALLI MANAGEMEN FOUNDATIO T 30 MIN/< SBSQ 16255 [place] [address] MEDICAL R, CARE/DAY SERV HAROHALLI 25 FOUNDATIO MINUTES SPECIAL 11880 [place] MAKENNA, STAIN 9 MEDICAL AYAD GROUP 1 SERV J MICROORGA FOUNDATIO NISMS I&R ANES 12711 [place] [facility] UPPER GI 9 MEDICAL , ZOHN N ENDOSCOPY SERVICES PROXIMAL TO DUODENUM INITIAL 87169 [place] [address] MEDICAL R, CARE/DAY SERV HAROHALLI 70 FOUNDATIO MINUTES EGD 39405 [place] MALISHIDHA TRANSORAL 9 MEDICAL R, BIOPSY SERV HAROHALLI SINGLE/MU FOUNDATIO LTIPLE RADIOLOGI 85417 [place], C EXAM 9 MEDICAL AMBROSIO T CHEST 2 SERV VIEWS FOUNDATIO FRONTAL&L ATERAL ECG 88500 [place] GUDINO ROUTINE 9 MEDICAL , ABELARDO ECG SERV J W/LEAST FOUNDATIO 12 LDS I&R ONLY RADEX 44740 [place], SPINE 9 MEDICAL AMBROSIO T LUMBOSACR SERV AL 2/3 FOUNDATIO VIEWS ESOPHAGOG 4516 [facility] 9 Y Y [facility] WITH CLOSED BIOPSY RADEX 96609 [place], SPINE 9 MEDICAL AMBROSIO T THORACIC SERV 2 VIEWS FOUNDATIO RADEX 64971 [place] JODIE, ABDOMEN 1 9 MEDICAL VELIA G SERV ANTEROP[place] [address] [place] MAKENNA, SURG 9 MEDICAL AYAD PATHOLOGY SERV J FOUNDATIO GROSS&NOLAN ROSCOPIC EXAM CT PELVIS 53493 [place], 9 MEDICAL AMBROSIO T W/[place] [address] [place], ABDOMEN 9 MEDICAL AMBROSIO T W/CONTRAS SERV T FOUNDATIO MATERIAL APPL 79601 JAN CHEATHAM, MODALITY 9 FAMILY ARNOLD H 1/> AREAS CHIROPRAC ELEC TIC STIMJ UNATTENDE D APPL 48293 JAN CHEATHAM, MODALITY 9 FAMILY ARNOLD H 1/> AREAS CHIROPRAC TRACTION TIC MECHANICA L THERAPEUT 44435 JAN CHEATHAM, IC PX 1/> 9 FAMILY ARNOLD H AREAS CHIROPRAC EACH 15 TIC MIN EXERCISES APPL 60800 JAN CHEATHAM, MODALITY 9 FAMILY ARNOLD H 1/> AREAS CHIROPRAC ELEC TIC STIMJ EA 15 MIN CHIROPRAC 06743 GAEL ALVARENGA 9 FAMILY ARNOLD H MANIPULAT CHIROPRAC [place] TIC SPINAL 3-4 REGIONS CHIROPRAC 99200 GAEL ALVARENGA 9 FAMILY ARNOLD H MANIPULAT CHIROPRAC [place] TX TIC SPINAL 3-4 REGIONS APPL 17955 JAN CHEATHAM, MODALITY 9 FAMILY ARNOLD H 1/> AREAS CHIROPRAC TIC ULTRAVIOL ET THERAPEUT 38745 JAN CHEATHAM, IC PX 1/> 9 FAMILY ARNOLD H AREAS CHIROPRAC EACH 15 TIC MIN EXERCISES APPL 57873 JAN CHEATHAM, MODALITY 9 FAMILY ARNOLD H 1/> AREAS CHIROPRAC TRACTION TIC MECHANICA L APPL 53185 JAN CHEATHAM, MODALITY 9 FAMILY ARNOLD H 1/> AREAS CHIROPRAC ELEC TIC STIMJ UNATTEND D [facility] 16211 HANEY [place], [place] [facility] 9 DON R DON R DAY MANAGEMEN T 30 MIN/< SBSQ 41185 [facility] 9 JR JULIO, CARE/DAY [place] [address] [facility] 9 DON R DON R CARE/DAY 25 MINUTES INITIAL 91644 [facility] INPATIENT 9 JR , CONSULT TRAE Gómez TRAE [place] NEW/ESTAB PT 80 MIN 3D 18483 [place], RENDERING 9 MEDICAL DRAKE P IMAGING W/INTERP& ASSOCIATE POSTPROC S DIFF WORK STATION RADEX 60802 [place], ABDOMEN 9 MEDICAL DRAKE P COMPL IMAGING W/DCBTS&/ [place] [address] [place], ABDOMEN 9 MEDICAL DRAKE P W/CONTRAS IMAGING T ASSOCIATE MATERIAL S CT PELVIS 62329 [place], 9 MEDICAL DRAKE P W/CONTRAS IMAGING T ASSOCIATE MATERIAL S INITIAL 76179 [facility] 9 DON R DON R CARE/DAY 50 [place] [address] [facility] INFUSION 9 [facility] THERAPY/P INC INC ROPHYLAXI S /DX 1ST TO 1 HR BLOOD 33291 [facility] COUNT 9 [facility] COMPLETE INC INC AUTO&AUTO DIFRNTL WBC BASIC 95954 [facility] METABOLIC 9 [facility] PANEL INC INC CALCIUM TOTAL URNLS DIP 17710 [facility] 9 [facility] STICK/TAB INC INC LET REAGENT AUTO MICROSCOP Y CT PELVIS 75048 [facility] W/O 9 [facility] [place] [address] [facility] INFUSION 9 [facility] THER INC INC PROPH ADDL [place] [address] [place] [address] [facility] ABDOMEN 9 [facility] W/O INC INC CONTRAST MATERIAL 3D 18717 [facility] RENDERING 9 [facility] INC INC W/INTERP& POSTPROC DIFF WORK STATION RADEX 91346 [facility] ABDOMEN 9 [facility] COMPL INC INC W/DCBTS&/ ERC VIEWS CHIROPRAC 29870 [place] BE[place], TIC 9 FAMILY MORGAN C MANIPLTV CHIROPRAC TX TIC EXTRASPIN AL 1/> REGION APPL 66771 [place], MODALITY 9 FAMILY MORGAN C 1/> AREAS CHIROPRAC TRACTION TIC MECHANICA L THERAPEUT 05711 [place], IC PX 1/> 9 FAMILY MORGAN C AREAS CHIROPRAC EACH 15 TIC MIN EXERCISES CHIROPRAC 95301 [place], TIC 9 FAMILY MORGAN C MANIPULAT CHIROPRAC [place] TIC SPINAL 3-4 REGIONS APPL 00241 [place], MODALITY 9 FAMILY MORGAN C 1/> AREAS CHIROPRAC ELEC TIC STIMJ EA 15 MIN APPL 04343 [place], MODALITY 9 FAMILY MORGAN C 1/> AREAS CHIROPRAC ELEC TIC STIMJ EA 15 MIN CHIROPRAC 82103 [place], TIC 9 FAMILY MORGAN C MANIPULAT CHIROPRAC [place] TIC SPINAL 3-4 REGIONS THERAPEUT 89331 [place] BE[place], IC PX 1/> 9 FAMILY MORGAN C AREAS CHIROPRAC EACH 15 TIC MIN EXERCISES APPL 90266 [place], MODALITY 9 FAMILY MORGAN C 1/> AREAS CHIROPRAC TRACTION TIC MECHANICA L CHIROPRAC 12984 [place], TIC 9 FAMILY MORGAN C MANIPLTV CHIROPRAC TX TIC EXTRASPIN AL 1/> REGION CHIROPRAC 69910 [place], TIC 9 FAMILY MORGAN C MANIPLTV CHIROPRAC TX TIC EXTRASPIN AL 1/> REGION APPL 99769 [place], MODALITY 9 FAMILY MORGAN C 1/> AREAS CHIROPRAC TRACTION TIC MECHANICA L THERAPEUT 79212 JAN BELL, IC PX 1/> 9 FAMILY MORGAN C AREAS CHIROPRAC EACH 15 TIC MIN EXERCISES APPL 62608 [place], MODALITY 9 FAMILY MORGAN C 1/> AREAS CHIROPRAC ELEC TIC STIMJ EA 15 MIN CHIROPRAC 86143 [place], TIC 9 FAMILY MORGAN C MANIPULAT CHIROPRAC KEREN TX TIC SPINAL 3-4 REGIONS CHIROPRAC 47043 [place] BELL, TIC 9 FAMILY MORGAN C MANIPULAT CHIROPRAC [place] TIC SPINAL 3-4 REGIONS RADEX 43886 [place] BE[place], SPINE 9 FAMILY MORGAN C CERVICAL CHIROPRAC 2 OR 3 TIC VIEWS APPL 89399 [place], MODALITY 9 FAMILY MORGAN C 1/> AREAS CHIROPRAC TRACTION TIC MECHANICA L SELF-CARE 87671 JAN BELL, /HOME 9 FAMILY MORGAN C MGMT CHIROPRAC TRAINING TIC EACH 15 MINUTES CHIROPRAC 39803 [place] BE[place], TIC 9 FAMILY MORGAN C MANIPLTV CHIROPRAC TX TIC EXTRASPIN AL 1/> REGION RADEX 40172 [place] BE[place], SPINE 9 FAMILY MORGAN C LUMBOSACR CHIROPRAC AL 2/3 TIC VIEWS CUL BACT 83676 [facility] XCPT 9 [facility] URINE INC INC BLOOD/STO OL AEROBIC ISOL CUL BACT 84611 [facility] AEROBIC 9 [facility] ADDL INC INC METHS DEFINITIV E EA ISOL SUSCEPTIB 87269 [facility] LTY STDY 9 [facility] ANTIMICRB INC INC IAL MICRO/AGA R DILUTJ BLOOD 42373 FAMILY ROSARIO, COUNT 9 CARE SANDRA T COMPLETE ASSOCIATE AUTO&AUTO S DIFRNTL WBC Encounters Encounter Start End Date Code Location Performer Type Date OFFICE 77250 [facility] OUTPATIEN 7 7 [facility] T VISIT MEDICAL 10 G MINUTES OFFICE 82274 [facility] ART CONSULTAT 7 7 [facility] ION MEDICAL NEW/ESTAB G PATIENT 60 MIN EMERGENCY 14438 [facility] DEPT 7 7 PHYSICIAN VISIT S, [facility] HIGH SEVERITY& THREAT [facility] - 7 7 [facility] OUTPATIEN INC T EMERGENCY 12810 [facility] 7 7 [facility] MODERATE SEVERITY [facility] - 6 6 [facility] - 6 6 [facility] OUTPATIEN INC T OFFICE 67012 [facility] OUTPATIEN 6 6 PHYSICIAN T VISIT S GROUP 15 MINUTES HOSPITAL [facility] - 6 6 [facility] OUTPATIEN INC T OFFICE 11227 [facility] OUTPATI[facility] 6 6 PHYSICIAN T VISIT S GROUP 15 MINUTES HOSPITAL [facility] - 6 6 [facility] OUTPATIEN INC T OFFICE 18756 [facility] OUTPATIEN 6 6 PHYSICIAN T VISIT S GROUP 25 MINUTES HOSPITAL [facility] - 6 6 [facility] OUTPATIEN INC T OFFICE 32179 [facility] OUTPATIEN 6 6 PHYSICIAN EUG T VISIT S GROUP 15 MINUTES OFFICE 77057 [facility] OUTPATIEN 6 6 PHYSICIAN T VISIT S GROUP 25 MINUTES HOSPITAL [facility] - 6 6 [facility] OUTPATIEN INC T OFFICE 86561 [facility] LEN OUTPATIEN 6 6 PHYSICIAN MAT T NEW 45 S GROUP MINUTES OFFICE 16701 [facility] OUTPATIEN 6 6 PHYSICIAN EUG T VISIT S GROUP 15 MINUTES HOSPITAL [facility] - 6 6 [facility] OUTPATIEN INC T OFFICE 66465 [facility]Y OUTPATIEN 2 2 DON DON T VISIT 15 MINUTES OFFICE 78113 DOMINIQUE DOMINIQUE OUTPATIEN 2 2 R H R H T VISIT 15 MINUTES EMERGENCY 89517 [facility] 2 2 [facility] DEPARTMEN INC T VISIT LOW/MODER SEVERITY EMERGENCY 10206 AKILA WILBURN 2 2 NOLAN NOLAN DEPARTMEN T VISIT HIGH/URGE NT SEVERITY HOSPITAL [facility] - 2 2 [facility] OUTPATIEN INC T OFFICE 75133 [facility] HANEY OUTPATIEN 2 2 DON DON T VISIT 15 MINUTES OFFICE 77285 BEH[facility] BEHZAD OUTPATIEN 2 2 LESLY LESLY T NEW 30 MINUTES OFFICE 77793 [facility] HANEY OUTPATIEN 2 2 DON DON T VISIT 15 MINUTES OFFICE 57498 [facility] HANEY OUTPATIEN 2 2 DON DON T VISIT 15 MINUTES OFFICE 98361 FAMILY DOMINIQUE OUTPATIEN 2 2 CARE R H T VISIT ASSOCIATE 15 S MINUTES OFFICE 55085 [facility] HANEY OUTPATIEN 2 2 DON DON T VISIT 15 MINUTES OFFICE 15396 [facility] HANEY OUTPATIEN 1 1 DON DON T VISIT 15 MINUTES OFFICE 79548 [facility]ANEY OUTPATIEN 1 1 DON DON T VISIT 25 MINUTES OFFICE 91908 [facility]ANEY OUTPATIEN 1 1 DON DON T VISIT 15 MINUTES OFFICE 32389 [facility] HANEY OUTPATIEN 1 1 DON DON T VISIT 15 MINUTES OFFICE 13107 [facility] OUTPATIEN 1 1 DON DON T VISIT 15 MINUTES OFFICE 25361 [facility] OUTPATIEN 1 1 DON DON T VISIT 15 MINUTES OFFICE 61160 [facility] OUTPATIEN 1 1 DON DON T VISIT 15 MINUTES OFFICE 90530 [facility] OUTPATIEN 1 1 DON DON T VISIT 15 MINUTES EMERGENCY 92460 [facility] 1 1 [facility] DEPARTMEN INC T VISIT HIGH/URGE NT SEVERITY HOSPITAL [facility] - 1 1 [facility] OUTPATIEN INC T OFFICE 37985 [facility]ON LUQUES OUTPATIEN 1 1 DON DON T VISIT 15 MINUTES OFFICE 78247 [facility] LUQUES OUTPATIEN 0 0 DON DON T VISIT 15 MINUTES OFFICE 19742 [facility] LUQUES OUTPATIEN 0 0 DON DON T VISIT 15 MINUTES HOSPITAL [facility] - 0 0 [facility] OUTPATIEN INC T EMERGENCY 02298 YOVANY WILBURN 0 0 EMERGENCY [facility] DEPARTMEN SERVICES T VISIT HIGH/URGE NT SEVERITY HOSPITAL [facility] - 0 0 [facility] OUTPATIEN INC T EMERGENCY 22470 [facility] 0 0 [facility] DEPARTMEN INC T VISIT MODERATE SEVERITY PERIODIC 93950 [facility]ON HANEY PREVENTIV 0 0 DON DON E MED EST PATIENT OFFICE 04650 HANEY, HANEY, OUTPATIEN 0 0 DON R DON R T VISIT 15 MINUTES EMERGENCY 20327 YOVANY WILBURN, 0 0 EMERGENCY [facility] DEPARTMEN SERVICES T VISIT HIGH/URGE ASSOCIATE NT S SEVERITY EMERGENCY 37858 [facility] 0 0 [facility] DEPARTMEN INC T VISIT MODERATE SEVERITY HOSPITAL [facility] - 0 0 [facility] OUTPATIEN [facility] SERENA - 0 0 [facility] OUTPATIEN [facility] T OFFICE 50298 LYNDON HANEY OUTPATIEN 0 0 DON R DON R T VISIT 15 MINUTES OFFICE 99195 HANEYLYNDON MEDRANO OUTPATIEN 0 0 DON R DON R T VISIT 15 MINUTES OFFICE 82516 JAN CHEATH[facility] 0 0 FAMILY JOSE MARIA H T VISIT CHIROPRAC 15 TIC MINUTES HOSPITAL [place] [address] 9 [facility] [place] [address] 9 Y INPATIENT HOSPITAL OFFICE 28969 S ANGEL DOLAN 9 9 NURSE NORMAN JAFFE/ESTAB NER GROUP PATIENT 60 MIN OFFICE 54840 [facility]ON HANEY OUTPATIEN 9 9 DON R DON R T VISIT 15 MINUTES HOSPITAL S[facility] - 9 9 [facility] INPATIENT INC EMERGENCY 21555 YOVANY DE LA FUENTE DEPT 9 9 EMERGENCY III, VISIT SERVICES DYLON HIGH SEVERITY& ASSOCIATE THREAT S FUNCJ OFFICE 73184 [facility] HANEY OUTPATIEN 9 9 DON R DON R T VISIT 15 MINUTES OFFICE 28894 [facility] HANEY OUTPATIEN 9 9 DON R DON R T VISIT 15 MINUTES HOSPITAL [facility] - 9 9 [facility] OUTPATIEN INC T EMERGENCY 46888 [facility] 9 9 [facility] DEPARTMEN INC T VISIT HIGH/URGE NT SEVERITY EMERGENCY 30127 YOVANY WILBURN, DEPT 9 9 EMERGENCY MARITA S VISIT SERVICES HIGH SEVERITY& ASSOCIATE THREAT S FUNCJ OFFICE 59302 [facility] HANEY OUTPATIEN 9 9 DON R DON R T VISIT 15 MINUTES OFFICE 16940 [facility]Y OUTPATIEN 9 9 DON R DON R T VISIT 15 MINUTES OFFICE 92157 DAE MENDEZ 9 9 FAMILY MORGAN C T NEW 20 CHIROPRAC MINUTES TIC OFFICE 84100 [facility]Y OUTPATIEN 9 9 DON R DON R T VISIT 15 MINUTES HOSPITAL [facility] - 9 9 [facility] OUTPATIEN INC T OFFICE 36365 [facility]Y OUTPATIEN 9 9 DON R DON R T VISIT 15 MINUTES OFFICE 93016 FAMILY DAE PONCE 9 9 CARE SANDRA T T VISIT ASSOCIATE 25 S MINUTES OFFICE 21249 [facility] OUTPATIEN 9 9 DON R DON R T VISIT 15 MINUTES OFFICE 67826 [facility]ANEY OUTPATIEN 9 9 DON R DON R T NEW 20 MINUTES
--- OUTSIDE RECORDS SUMMARY | 2017-01-25 14:24 | External Medical Summary Rpt ---
Author Author , Organization [employer] Address Unknown Phone Unavailable Care Team Providers Care Dirt Contractor Name Role Phone AYAD MENSAH, Unavailable Unavailable AYAD MENSHA JR, CHARLES F, Unavailable Unavailable TRAE ZAMORA JR ART, ART Unavailable Unavailable CHEN, CHEN Unavailable Unavailable [facility] Unavailable Unavailable SERVICE, [facility] Unavailable Unavailable SERVICE, [facility] [place], ZOHN N, Unavailable Unavailable [place], ZOHN N MALU BRENDAN, Unavailable Unavailable MALU BRENDAN MALU, ABELARDO, Unavailable Unavailable MALU, ABELARDO [facility], Unavailable Unavailable [facility] Unavailable [place] [facility] [place] [facility] [place] BEHZAD LESLY, Unavailable Unavailable BEH[facility]AD [...] INC OCHOA AGUILAR, OCHOA AGUILAR Unavailable Unavailable [facility], Unavailable Unavailable [facility] Unavailable Unavailable [facility], [facility] Unavailable Unavailable MEDICAL G, [facility]IA FELICIANO G, , Unavailable Unavailable [facility] Un[facility] GUIDO PABLO, Unavailable Unavailable GUIDO PABLO [facility] Unavailable Unavailable SERVICES, [facility], LABS Unavailable Unavailable LABS, [...] Unavailable Unavailable [facility] Unavailable Unavailable [id number] [address] [id number], [facility] [id number] [address] [id number] ABELARDO GUDINO, Unavailable Unavailable ABELARDO GUDINO, Unavailable Unavailable ADELE NOLEN, HAROHALLI LEN MAT, Unavailable Unavailable LEN MAT HANEY DON, Unavailable Unavailable HANEY DON HANEY DON, Unavailable Unavailable HANEY DON HANEY, DON R, Unavailable Unavailable NATALIA HANEY R NORMAN DOLAN, Unavailable Unavailable NORMAN DOLAN, STONE JEROD Unavailable Unavailable [facility], Unavailable Unavailable [facility] Unavailable Unavailable [address][id number], [facility] DYLON DE LA FUENTE III, Unavailable Unavailable DYLON DE LA FUENTE III, E MD, Unavailable Unavailable Home GODFREY MD Purpose Continuity of Care Document - 05-08-2009 through 2016 Problems Code Diagnosis DOS Provider Status N3020 OTHER 12-16-2016 [facility] CHRONIC HEALTH CYSTITIS MEDICAL G WITHOUT HEMATURIA N419 INFLAMMATOR 12-16-2016 [facility] Y DISEASE HEALTH OF [place]OST[place] MEDICAL G UNSPECIFIED R319 HEMATURIA 12-02-2016 [facility] UNSPECIFIED HEALTH MEDICAL G N3001 ACUTE 10-02-2016 [facility] WITH INC HEMATURIA N3091 CYSTITIS 10-02-2016 [facility] UNSPECIFIED PHYSICIANS, [facility] HEMAT[facility]IA R1033 PERIUMBILIC 10-02-2016 [facility] R300 DYSURIA 10-02-2016 [facility] Z5181 ENCOUNTER 09-05-2016 [facility] FOR THERAPEUTIC DRUG LEVEL MONITORING C35722 OTHER LONG 09-05-2016 LABS TERM CURRENT DRUG THERAPY Z0000 ENCOUNTER 09-04-2016 [facility]ULT [facility] MED EXAM INC W/O ABNORMAL FIND M545 LOW BACK 09-03-2016 [facility] PAIN [facility] INC M5432 SCIATICA 08-22-2016 [facility] LEFT SIDE PHYSICIANS GROUP J0100 ACUTE 08-14-2016 [facility] MAXILLARY PHYSICIANS SINUSITIS GROUP UNSPECIFIED R509 FEVER 08-14-2016 [facility] UNSPECIFIED PHYSICIANS GROUP Z23 ENCOUNTER 08-14-2016 [facility] IMMUNIZATIO GROUP N C76973 MIGRAINE 08-12-2016 [facility] UNS NOT PHYSICIANS INTRACT W/O GROUP STATUS MIGRAINOSUS R042 HEMOPTYSIS 08-12-2016 [facility] G4701 INSOMNIA 07-23-2016 [facility] DUE TO PHYSICIANS MEDICAL GROUP CONDITION G4710 HYPERSOMNIA 07-23-2016 [facility] UNSPECIFIED INC G4459 OTHER 07-14-2016 [facility] COMPLICATED PHYSICIANS HEADACHE GROUP SYNDROME G4700 INSOMNIA 07-14-2016 [facility] UNSPECIFIED PHYSICIANS GROUP Y72126 ACUTE 07-10-2016 [facility] POST-TRAUMA PHYSICIANS TIC GROUP HEADACHE INTRACTABLE R000 TACHYCARDIA 06-03-2016 [facility] PHYSICIANS UNSPECIFIED GROUP R9431 ABNORMAL 06-03-2016 [facility] [employer] [facility] [employer]LECTROC[facility] SERV I[employer]orporated 09794 UNSPECIFIED 03-24-2012 [facility] VIRAL DON WARTS 0088 INTESTINAL 02-20-2012 DOMINIQUE R INFECTION H DUE TO OTHER ORGANISM [facility] 75328 PAIN IN 02-08-2012 [facility], MEDICAL SHOULDER IMAGING ASS REGION 7260 ADHESIVE 02-08-2012 [facility] NOL[facility] CAPSULITIS OF SHOULDER 25234 UNSPEC 02-08-2012 [facility] DISORDERS [facility] BURSAE&TEND INC ONS SHOULDER REGION 4779 ALLERGIC 01-05-2012 [facility] RHINITIS DON CAUSE UNSPECIFIED 5368 DYSPEPSIA&O 01-05-2012 [facility] THER SPEC DON DISORDERS FUNCTION STOMACH 4619 ACUTE 12-12-2011 [facility] SINUSITIS, LESLY UNSPECIFIED 7840 HEADACHE 12-12-2011 [facility] LESLY 4618 OTHER ACUTE 10-27-2011 [facility] SINUSITIS DON 4660 ACUTE 07-25-2011 [facility] BRONCHITIS DON 56201 SHORTNESS 07-22-2011 [facility] OF BREATH DON 7862 COUGH 07-22-2011 [facility] DON 77305 EPISODIC 07-15-2011 [facility] TENSION DON TYPE HEADACHE 7089 UNSPECIFIED 07-04-2011 [facility] URTICARIA DON 6989 UNSPECIFIED 07-01-2011 [facility] PRURITIC DON DISORDER 7821 RASH AND 07-01-2011 [facility] OTHER DON NONSPECIFIC SKIN ERUPTION 4659 ACUTE URIS 05-21-2011 [facility] OF DON UNSPECIFIED SITE 33496 HORDEOLUM 04-18-2011 [facility] EXTERNUM DON 12969 PAIN IN 03-01-2011 [facility] MEDICAL LOWER LEG IMAGING ASS 9596 INJURY 03-01-2011 [facility] OTHER AND [facility]BULANCE UNSPECIFIED SERVICE HIP AND THIGH 3829 UNSPECIFIED 01-08-2011 [facility] OTITIS DON MEDIA 77267 REGULAR 12-09-2010 [facility] 7061 OTHER ACNE 10-21-2010 [facility] DON 7245 UNSPECIFIED 10-21-2010 [facility] BACKACHE DON 22536 STOMATITIS 09-11-2010 [facility] AND DON MUCOSITIS UNSPECIFIED 920 CONTUSION 08-21-2010 [facility] OF FACE MEDICAL SCALP AND IMAGING ASS NECK EXCEPT EYE 23029 HEAD 08-21-2010 [facility] INJURY, DON UNSPECIFIED 45838 UNSPECIFIED 07-08-2010 [facility] INFECTION SERVICES IN CCE & UNS SITE V202 ROUTINE 04-29-2010 [facility] INFANT OR DON CHILD HEALTH CHECK 6929 CONTACT 04-12-2010 [facility], DERMATITIS& DON R OTHER ECZEMA DUE UNSPEC CAUSE 486 PNEUMONIA, 02-14-2010 [facility]ISM [facility]GENCY UNSPECIFIED SERVICES ASSOCIATES 95808 ASTHMA, 02-14-2010 [facility] UNSPECIFIED EMERGENCY , SERVICES UNSPECIFIED ASSOCIATES STATUS 462 ACUTE 02-04-2010 [facility]ANE[facility], [place] R [address] FEVER 02-04-2010 [facility], UNSPECIFIED DON R 7224 DEGENERATIO 11-16-2009 [place] N OF FAMILY CERVICAL CHIROPRACTI INTERVERTEB C RAL DISC 98132 DEGEN 11-16-2009 [place] LUMBAR/LUMB FAMILY OSACRAL CHIROPRACTI INTERVERTEB C RAL DISC 7386 ACQUIRED 11-16-2009 [place] DEFORMITY FAMILY OF PELVIS CHIROPRACTI C 7392 NONALLOPATH 11-16-2009 [place] IC LESION FAMILY OF THORACIC CHIROPRACTI REGION NEC C 5641 IRRITABLE 09-05-2009 [place] [facility] SYNDROME [facility] 37111 ABDOMINAL 09-05-2009 [place] [facility] PA[facility], LEFT SERV UPPER FOUNDATIO QUADRANT 04701 NAUSEA WITH 08-19-2009 [place] [facility] VOMITING SERV [facility] 7873 FLATULENCE 08-19-2009 [place] [facility] ERUCTATION SERV AND GAS [facility] PAIN 24198 OTHER SPEC 08-17-2009 [place] [facility] GASTRITIS SERV WITHOUT FOUNDATIO MENTION HEMORRHAGE 96716 SCHMORLS 08-17-2009 [place] [facility] NODES, SERV LUMBAR FOUNDATIO REGION 7329 UNSPECIFIED 08-17-2009 [place] [facility] OSTEOCHONDR FOUNDATIO OPATHY 44698 LOSS OF 08-17-2009 [place] [facility] WE[place] [facility] 88787 CHEST PAIN 08-17-2009 [place] [facility] UNSPECIFIED SERV F[facility] 52648 VOMITING 08-17-2009 [place] [facility] ALONE [facility] 08871 ABDOMINAL 08-17-2009 [place] [facility] SERV UNSPECIFIED FOUNDATIO SITE 77287 ABDOMINAL 08-17-2009 [place] [facility] SERVICES EPIGASTRIC V1271 PERSONAL 08-17-2009 [place] [facility] H[place]ORY OF SERVICES PEPTIC ULCER DISEASE V161 FM HX 08-17-2009 [place] [facility] MALIGNANT SERV NEOPLASM FOUNDATIO [place]ACHE[place] BRONCHUS&[place] [address] UNSPECIFIED 08-16-2009 [place] [facility] CONSTIPATIO FOUNDATIO N 49727 OTHER 08-16-2009 [facility] DISORDER OF INTESTINES 23838 ABDOMINAL 08-16-2009 [place] [facility] RIGHT SERV LOWER FOUNDAT[facility] QUADRANT 2892 NONSPECIFIC 07-25-2009 [facility] [place] [address] ABDOMINAL 07-24-2009 ALLRAN JR, PAIN, TRAE F GENERALIZED 2869 OTHER AND 07-23-2009 ALLRAN JR, UNSPECIFIED TRAE F COAGULATION DEFECTS 51229 PEPTC ULCR 07-22-2009 [facility] UNS DON R ACUT/CHRN W/O HEMOR PERF/OBST 56721 ABDOMINAL 07-22-2009 [facility], LEFT MEDICAL LOWER IMAGING [facility]ANT ASSOC[facility]ATES 5589 OTH&UNSPEC 07-16-2009 [facility], NONINFECTIO DON R US GASTROENTER ITIS&COLITI S 35247 ACUTE 07-15-2009 [facility] GASTRITIS EMERGENCY WITHOUT SERVICES MENTION OF ASSOCIATES HEMORRHAGE 7398 NONALLOPATH 06-29-2009 [place] IC LESION FAMILY OF RIB CAGE CHIROPRACTI NEC C 51222 METHICILLIN 06-13-2009 [facility] RESISTANT DON R STAPHYLOCOC [...] 17 17 15 TA 1 80 PH OR AR N- MA CA CY FF OF [...] 46 DE ZA 11 17 17 42 [place] 0 88 PH IN AR E MA [...] 04 05 6. 3 00 EA Ac [place] 71 -0 -[address] ti [...] 46 DE ZA 11 17 17 42 AZ 0 88 PH IN AR E MA 10 CY MG OF CY TA NT BL HI ET AN A IN C BU 00 03 04 28 4 00 EA Ac TA 14 -2 -[address] ti LB 31 0- 4- 00 00 SI ve -A 78 20 20 47 DE CE 70 17 17 15 TA 1 80 PH OR AR N- MA CA CY FF OF 50 CY -3 NT 25 HI -4 AN 0 A IN C HY 00 03 04 [address] 40 -2 -[address] ti OC 60 1- 4- 00 00 SI ve OD 12 20 20 48 DE ON 30 17 17 06 -A 5 30 PH CE AR TA MA OR CY NO PH OF EN CY NT [...] 46 DE ZA 11 17 17 42 AZ 0 88 PH IN AR E MA [...] 17 17 15 TA 1 80 PH OR AR N- MA CA CY FF OF [...] 46 DE ZA 11 17 17 42 AZ 0 88 PH IN AR E MA [...] 01 02 14 7 00 EA Ac AZ 71 -1 -[address] ti [...] 17 17 15 TA 1 80 PH OR AR N- MA CA CY FF OF 50 CY -3 NT 25 HI -4 AN 0 A IN C HY 00 01 02 9. [address] 60 -2 -[address] ti OC 33 7- 7- 0 00 SI ve OD 89 20 20 47 DE ON 03 17 17 40 -A 2 09 PH CE AR TA MA OR CY NO PH OF EN CY NT [...] 17 17 15 TA 1 80 PH OR AR N- MA CA CY FF OF [...] 46 DE ZA 11 16 17 42 AZ 0 88 PH IN AR E MA [...] 16 17 85 TA 1 68 PH OR AR N- MA CA CY FF OF [...] 2 64 PH CE AR TA MA OR CY NO PH OF EN CY NT [...] 8- 8 00 SI 53 HE ve AZ 02 20 20 DE NS ED 20 [...] 09 11 11 E 9 PH DO AZ AR N OP MA R CY 50 [...] 20 20 DE AT 61 11 11 OR E 0 PH CH 10 AR AE 0 MA L MG CY S CA OF PS UL CY E NT HI AN A AZ 00 02 02 0 6. 6 EA 21 GA Ac IT 09 -2 -[address] 45 IN ti HR 37 8- 8- 0 SI 35 EY ve OM 14 20 20 DE YC 61 11 11 OR IN 8 PH CH AR AE 25 [...] 0- 0- 00 SI 03 HE ve AZ 02 20 20 DE NS ED 20 [...] 20 AI YC 00 10 10 D OR IN 1 PH CH AR AE 25 MA L 0 CY S MG 03 TA 93 BL 8 ET # 03 93 ME 00 06 06 21 6 RI 83 GA Ac TH 60 -0 -0 .0 TE 66 IN ti YL 34 3- 3- 00 06 EY ve AZ 59 20 20 AI ED 31 10 10 D OR NI 5 PH CH SO AR AE [...] 8- 4- 00 SI 19 HE ve AZ 02 20 20 DE NS ED 20 [...] Procedure DOS Code Location Performer Comment CYSTOURET 61100 [facility] HROSCOPY 7 [facility] MEDICAL G THERAPEUT 04333 [facility] ART IC 7 NE HEALTH PROPHYLAC MEDICAL TIC/DX G INJECTION SUBQ/IM BLDR 60060 [facility] ART IRRIGATIO 7 NE HEALTH N SMPL MEDICAL LAVAGE G &/INSTLJ URNLS DIP 73438 [facility] ART 7 NE HEALTH STICK/TAB MEDICAL LET RGNT G AUTO W/O MICROSCOP Y INJECTION J1580 [facility] 7 NE HEALTH GARAMYCIN MEDICAL G GENTAMICI N UP TO 80 MG URNLS DIP 30326 [facility] ART 7 NE HEALTH STICK/TAB MEDICAL LET RGNT G AUTO W/O MICROSCOP Y COMPREHEN 83102 [facility] SIVE 7 [facility] METABOLIC INC INC PANEL CULTURE 70285 [facility] BACTERIAL 7 [facility] INC INC QUANTTATI VE COLONY COUNT URINE URNLS DIP 27616 [facility] 7 [facility] STICK/TAB INC INC LET REAGENT AUTO MICROSCOP Y BLOOD 26436 [facility] COUNT 7 [facility] COMPLETE INC INC AUTO&[place] [address] [facility] INFUSION 7 [facility] THERAPY/P INC INC ROPHYLAXI S /DX 1ST TO 1 HR THERAPEUT 86933 [facility] SPAULDING IC 7 [facility] [place]JE[place] [address] [facility] ABDOMEN & 7 MEDICAL PELVIS IMAGING W/O ASS CONTRAST MATERIAL DRUG TST G0483 LABS LABS DEFINITV 6 DR ID METH P DAY 22/MORE DR CL COMPREHEN 48753 [facility] SIVE 6 [facility] METABOLIC INC INC PANEL BLOOD 80776 [facility] COUNT 6 [facility] COMPLETE INC INC AUTO&AUTO DIFRNTL WBC PHYSICAL 01185 [facility] THERAPY 6 [facility] EVALUATIO INC INC N RADEX 76300 S[facility] MORAON SPINE 6 [facility] LUMBOSACR INC INC AL MINIMUM 4 VIEWS INJECTION J1100 [facility] STONE JEROD 6 PHYSICIAN DEXAMETHO S GROUP SONE SODIUM PHOSPHATE 1 MG IM ADM 42007 [facility] STONE JEROD PRQ ID 6 PHYSICIAN SUBQ/IM S GROUP NJXS 1 VACCINE THERAPEUT 43019 [facility] STONE JEROD IC 6 PHYSICIAN PROPHYLAC S GROUP TIC/DX INJECTION SUBQ/IM IIV3 47795 [facility] STONE JEROD VACCINE 6 PHYSICIAN SPLIT S GROUP VIRUS 0.5 ML DOSAGE IM USE INJECTION J0696 [facility] STONE JEROD 6 PHYSICIAN CEFTRIAXO S GROUP NE SODIUM PER 250 MG INJECTION J1040 [facility] STONE JEROD 6 PHYSICIAN METHYLPRE S GROUP DNISOLONE ACETATE 80 MG RADIOLOGI 47930 [facility] C EXAM 6 [facility] CHEST 2 INC INC VIEWS FRONTAL&L ATERAL POLYSOM 19089 [facility] PAVEZ 6/>YRS 6 PHYSICIAN SLEEP 4/> S GROUP ADDL RUDDY ATTND THERAPEUT 99197 [facility] STONE JEROD IC 6 PHYSICIAN PROPHYLAC S GROUP TIC/DX INJECTION SUBQ/IM INJECTION J1885 [facility] STONE JEROD 6 PHYSICIAN KETOROLAC S GROUP TROMETHAM INE PER 15 MG ECHO 83625 [facility]NA TTHRC R-T 6 [facility]OSP 2D INC INC W/WOM-MOD E COMPL SPEC&COLR D ECHO 66744 [place] [facility]IG VID TRANSTHOR 6 MEDICAL C R-T 2D SERV W/WO FOUNDATIO M-MODE N REC F-UP/LMTD ECG 43349 [facility] ROUTINE 6 [facility]OS[facility] ECG INC INC W/LEAST 12 LDS TRCG ONLY W/O I&R DRUG TST G0477 [facility] PRESUMP;C 6 [facility] PBL BEING INC INC READ DC OPT OBV ONLY BLOOD 79177 DOMIN[facility] DOMINIQUE COUNT 2 R H R H COMPLETE AUTO&AUTO DIFRNTL WBC RADEX 19827 [facility] SHOULDER 2 [facility] COMPLETE INC INC MINIMUM 2 VIEWS BLOOD 95283 FAMILY FAMILY COUNT 2 CARE CARE COMPLETE ASSOCIATE ASSOCIATE AUTO&AUTO S S DIFRNTL WBC PRESSURIZ 85965 [facility] ED/NONPRE 1 DON DON SSURIZED INHALATIO N TREATMENT RADIOLOGI 06490 [facility] LUQUES C 1 DON DON EXAMINATI ON CHEST SINGLE VIEW FRONTAL RADIOLOGI 90131 [facility] TORIBIO C 1 MEDICAL BRENDAN EXAMINATI IMAGING ON KNEE 3 ASS VIEWS GROUND A0425 [facility] MILEAGE 1 AMBULANCE AMBULANCE PER SERVICE SERVICE STATUTE MILE AMBULANCE A0429 [facility] SERVICE 1 AMBULANCE AMBULANCE BLS SERVICE SERVICE EMERGENCY TRANSPORT FRAMES V2020 [facility] PURCHASES 1 VISION FITTING 97384 [facility] SPECTACLE 1 VISION S XCPT APHAKIA MONOFOCAL OPHTH 62318 [facility] MEDICAL 1 VISION XM&EVAL COMPRE NEW PT 1/> VST 1 VISN V2103 [facility] PLANO 1 VISION TO+/-4.00 D SPHER 0.12-2.00 [place] [address] [facility] STREPTOCO 1 [facility] CCUS INC INC GROUP A COMPREHEN 50338 S[facility] SIVE 1 [facility] METABOLIC INC INC PANEL RADIOLOGI 30277 [facility] TORIBIO C EXAM 1 MEDICAL BRENDAN CHEST 2 IMAGING VIEWS ASS FRONTAL&L ATERAL BLOOD 13259 [facility] COUNT 1 [facility] COMPLETE INC INC AUTO&AUTO DIFRNTL WBC IAADI 05307 [facility] INFFLUENZ 1 [facility] A A VIRUS INC INC IAADI 65559 S[facility] M[facility]AON INFLUENZA 1 [facility] [place] [place] [address] S[facility] INFUSION 1 [facility] THERAPY/P INC INC ROPHYLAXI S /DX [address] [place] [address] [place] [address] [facility] BORREGOUTCHER HEAD/BRAI 0 MEDICAL BRENDAN N W/O IMAGING CONTRAST ASS MATERIAL 3D 33871 [facility] RENDERING 0 [facility] W/INTERP INC INC & POSTPROCE SS SUPERVISI ON COMPREHEN 33043 [facility] SIVE 0 [facility] METABOLIC INC INC PANEL IAADI 20691 S[facility] INFLUENZA 0 [facility] B VIRUS INC INC IAADI 07845 [facility] INFFLUENZ 0 [facility] [place] [address] S[facility] INFUSION 0 [facility] THERAPY/P INC INC ROPHYLAXI S /DX 1ST TO 1 HR BLOOD 58763 [facility] COUNT 0 [facility] COMPLETE INC INC AUTO&AUTO DIFRNTL WBC BLOOD 07271 [facility] COUNT 0 [facility] COMPLETE INC INC AUTO&AUTO DIFRNTL WBC PRESSURIZ 54417 [facility] ED/NONPRE 0 [facility] SSURIZED [place] [address] S[facility] INFUSION 0 [facility] THERAPY/P INC INC ROPHYLAXI S /DX 1ST TO 1 HR RADIOLOGI 01887 ZANE MALU, C EXAM 0 MEDICAL ABELARDO CHEST 2 IMAGING VIEWS ASSOCIATE FRONTAL&L S ATERAL IAADI 54797 S[facility] INFFLUENZ 0 [facility] A A VIRUS INC INC IAADI 01345 [facility] INFLUENZA 0 [facility] B VIRUS INC INC IAADIADOO 06431 [facility] HANEY, 0 DON R DON R STREPTOCO CCUS GROUP A BASIC 88378 [facility] METABOLIC 0 [facility] PANEL INC INC CALCIUM TOTAL BLOOD 51061 [facility] COUNT 0 [facility] COMPLETE INC INC AUTO&AUTO DIFRNTL WBC STRAPPING 73310 JAN CHEATHAM, THORAX 0 FAMILY ARNOLD H CHIROPRAC TIC CHIROPRAC 18642 JAN CHEATHAM, TIC 0 FAMILY ARNOLD H MANIPULAT CHIROPRAC KEREN [place] TIC SPINAL 3-4 REGIONS APPL 80459 JAN CHEATHAM, MODALITY 0 FAMILY ARNOLD H 1/> AREAS CHIROPRAC TRACTION TIC MECHANICA L THERAPEUT 67311 JAN CHEATHAM, IC PX 1/> 0 FAMILY ARNOLD H AREAS CHIROPRAC EACH 15 TIC MIN EXERCISES THERAPEUT 96733 JAN CHEATHAM, IC PX 1/> 0 FAMILY ARNOLD H AREAS CHIROPRAC EACH 15 TIC MIN EXERCISES APPL 44300 JAN CHEATHAM, MODALITY 0 FAMILY ARNOLD H 1/> AREAS CHIROPRAC TRACTION TIC MECHANICA L MANUAL 40339 JAN CHEATHAM, THERAPY 0 FAMILY ARNOLD H TQS 1/> CHIROPRAC REGIONS TIC EACH 15 MINUTES STRAPPING 10262 JAN CHEATHAM, THORAX 0 FAMILY ARNOLD H CHIROPRAC TIC CHIROPRAC 53155 JAN CHEATHAM, TIC 0 FAMILY ARNOLD H MANIPULAT CHIROPRAC KEREN TX TIC SPINAL 3-4 REGIONS APPL 86764 JAN CHEATHAM, MODALITY 0 FAMILY ARNOLD H 1/> AREAS CHIROPRAC ELEC TIC STIMJ UNATTENDE D MANUAL 97751 JAN CHEATHAM, THERAPY 0 FAMILY ARNOLD H TQS 1/> CHIROPRAC REGIONS TIC EACH 15 MINUTES STRAPPING 08325 JAN CHEATHAM, THORAX 0 FAMILY ARNOLD H CHIROPRAC TIC CHIROPRAC 15609 JAN CHEATHAM, TIC 0 FAMILY ARNOLD H MANIPULAT CHIROPRAC KEREN TX TIC SPINAL 3-4 REGIONS APPL 86196 JAN CHEATHAM, MODALITY 0 FAMILY ARNOLD H 1/> AREAS CHIROPRAC TRACTION TIC MECHANICA L THERAPEUT 52462 JAN CHEATHAM, IC PX 1/> 0 FAMILY ARNOLD H AREAS CHIROPRAC EACH 15 TIC MIN EXERCISES THERAPEUT 98584 JAN CHEATHAM, IC PX 1/> 0 FAMILY ARNOLD H AREAS CHIROPRAC EACH 15 TIC MIN EXERCISES APPL 69042 JAN CHEATHAM, MODALITY 0 FAMILY ARNOLD H 1/> AREAS CHIROPRAC TRACTION TIC MECHANICA L CHIROPRAC 57501 JAN CHEATHAM, TIC 0 FAMILY ARNOLD H MANIPULAT CHIROPRAC KEREN TX TIC SPINAL 3-4 REGIONS STRAPPING 15003 JAN CHEATHAM, THORAX 0 FAMILY ARNOLD H CHIROPRAC TIC MANUAL 98882 JAN CHEATHAM, THERAPY 0 FAMILY ARNOLD H TQS 1/> CHIROPRAC REGIONS TIC EACH 15 MINUTES STRAPPING 84996 JAN CHEATHAM, THORAX 0 FAMILY ARNOLD H CHIROPRAC TIC MANUAL 64621 JAN CHEATHAM, THERAPY 0 FAMILY ARNOLD H TQS 1/> CHIROPRAC REGIONS TIC EACH 15 MINUTES CHIROPRAC 19417 JAN CHEATHAM, TIC 0 FAMILY ARNOLD H MANIPULAT CHIROPRAC KEREN TX TIC SPINAL 3-4 REGIONS THERAPEUT 78885 JAN CHEATHAM, IC PX 1/> 0 FAMILY ARNOLD H AREAS CHIROPRAC EACH 15 TIC MIN EXERCISES THERAPEUT 54056 AJN CHEATHAM, IC PX 1/> 0 FAMILY ARNOLD H AREAS CHIROPRAC EACH 15 TIC MIN EXERCISES APPL 06032 JAN CHEATHAM, MODALITY 0 FAMILY ARNOLD H 1/> AREAS CHIROPRAC TRACTION TIC MECHANICA L APPL 28069 JAN CHEATHAM, MODALITY 0 FAMILY ARNOLD H 1/> AREAS CHIROPRAC ELEC TIC STIMJ UNATTENDE D CHIROPRAC 01824 JAN CHEATHAM, TIC 0 FAMILY ARNOLD H MANIPULAT CHIROPRAC KEREN TX TIC SPINAL 3-4 REGIONS APPL 88682 JAN CHEATHAM, MODALITY 0 FAMILY ARNOLD H 1/> AREAS CHIROPRAC ELEC TIC STIMJ EA 15 MIN STRAPPING 43899 JAN CHEATHAM, THORAX 0 FAMILY ARNOLD H CHIROPRAC TIC CHIROPRAC 27464 JAN CHEATHAM, TIC 0 FAMILY ARNOLD H MANIPULAT CHIROPRAC KEREN TX TIC SPINAL 3-4 REGIONS APPL 15614 JAN CHEATHAM, MODALITY 0 FAMILY ARNOLD H 1/> AREAS CHIROPRAC TRACTION TIC MECHANICA L THERAPEUT 60580 JAN CHEATHAM, IC PX 1/> 0 FAMILY ARNOLD H AREAS CHIROPRAC EACH 15 TIC MIN EXERCISES THERAPEUT 07752 JAN CHEATHAM, IC PX 1/> 9 FAMILY ARNOLD H AREAS CHIROPRAC EACH 15 TIC MIN EXERCISES APPL 08021 JAN CHEATHAM, MODALITY 9 FAMILY ARNOLD H 1/> AREAS CHIROPRAC TRACTION TIC MECHANICA L STRAPPING 91404 JAN CHEATHAM, LOW BACK 9 FAMILY ARNOLD H CHIROPRAC TIC CHIROPRAC 76073 JAN CHEATHAM, TIC 9 FAMILY ARNOLD H MANIPULAT CHIROPRAC [place] TIC SPINAL 3-4 REGIONS CHIROPRAC 17122 JAN CHEATHAM, TIC 9 FAMILY ARNOLD H MANIPLTV CHIROPRAC TX TIC EXTRASPIN AL 1/> REGION [place] [address] [facility] 9 MEDICAL R, W/BIOPSY SERV HARNDALLI SINGLE/[place] [address] [place] GENET SURG 9 MEDICAL VALERY, E PATHOLOGY SERV FOUNDATIO [facility] [address] [facility] DISCHARGE 9 MEDICAL R, DAY SERV HAROHALLI MANAGEMEN FOUNDATIO T 30 MIN/< SBSQ 34017 [place] [address] MEDICAL R, CARE/DAY SERV HAROHALLI 25 FOUNDATIO MINUTES SPECIAL 67774 [place] MAKENNA, STAIN 9 MEDICAL AYAD GROUP 1 SERV J MICROORGA FOUNDATIO NISMS I&R ANES 56570 [place]ENT[place] UPPER GI 9 MEDICAL , ZOHN N ENDOSCOPY SERVICES PROXIMAL TO DUODENUM INITIAL [address] [place] [address] MEDICAL R, CARE/DAY SERV HAROHALLI 70 FOUNDATIO MINUTES EGD 01257 [place] MALISHIDHA TRANSORAL 9 MEDICAL R, BIOPSY SERV HAROHALLI SINGLE/MU FOUNDATIO LTIPLE RADIOLOGI 27200 [place], C EXAM 9 MEDICAL AMBROSIO T CHEST 2 SERV VIEWS FOUNDATIO FRONTAL&L ATERAL ECG 67568 [place] GUDINO ROUTINE 9 MEDICAL , ABELARDO ECG SERV J W/LEAST FOUNDATIO 12 LDS I&R ONLY RADEX 87150 [place], SPINE 9 MEDICAL AMBROSIO T LUMBOSACR SERV AL 2/3 FOUNDATIO VIEWS ESOPHAGOG 4516 [facility] 9 Y Y [facility] WITH CLOSED BIOPSY RADEX 60846 [place], SPINE 9 MEDICAL AMBROSIO T THORACIC SERV 2 VIEWS FOUNDATIO RADEX 97230 [place] JODIE, ABDOMEN 1 9 MEDICAL VELIA G SERV ANTEROP[place] [address] [place] MAKEN[place], SURG 9 MEDICAL AYAD PATHOLOGY SERV J FOUNDATIO GROSS&NOLAN ROSCOPIC EXAM CT PELVIS 17184 [place], 9 MEDICAL AMBROSIO T W/[place] [address] [place], ABDOMEN 9 MEDICAL AMBROSIO T W/CONTRAS SERV T FOUNDATIO MATERIAL APPL 87664 JAN CHEATHAM, MODALITY 9 FAMILY ARNOLD H 1/> AREAS CHIROPRAC ELEC TIC STIMJ UNATTENDE D APPL 07471 AJN CHEATHAM, MODALITY 9 FAMILY ARNOLD H 1/> AREAS CHIROPRAC TRACTION TIC MECHANICA L THERAPEUT 88111 JAN CHEATHAM, IC PX 1/> 9 FAMILY ARNOLD H AREAS CHIROPRAC EACH 15 TIC MIN EXERCISES APPL 56945 JAN CHEATHAM, MODALITY 9 FAMILY ARNOLD H 1/> AREAS CHIROPRAC ELEC TIC STIMJ EA 15 MIN CHIROPRAC 18214 GAEL ALVARENGA 9 FAMILY ARNOLD H MANIPULAT CHIROPRAC [place] TIC SPINAL 3-4 REGIONS CHIROPRAC 93337 GAEL ALVARENGA 9 FAMILY ARNOLD H MANIPULAT CHIROPRAC [place] TIC SPINAL 3-4 REGIONS APPL 05847 JAN CHEATHAM, MODALITY 9 FAMILY ARNOLD H 1/> AREAS CHIROPRAC TIC ULTRAVIOL ET THERAPEUT 39656 JAN CHEATHAM, IC PX 1/> 9 FAMILY ARNOLD H AREAS CHIROPRAC EACH 15 TIC MIN EXERCISES APPL 64589 JAN CHEATHAM, MODALITY 9 FAMILY ARNOLD H 1/> AREAS CHIROPRAC TRACTION TIC MECHANICA L APPL 18109 JAN CHEATHAM, MODALITY 9 FAMILY ARNOLD H 1/> AREAS CHIROPRAC ELEC TIC STIMJ UNATTEND D [facility] [address] HANEY LARGO, [facility] 9 DON R DON R DAY MANAGEMEN T 30 MIN/< SBSQ 93679 [facility] 9 JR JULIO, CARE/DAY [place] 25 MINUTES SBSQ 44024 [facility] 9 DON R DON R CARE/DAY 25 MINUTES INITIAL [address] [facility] INPATIENT 9 JR , CONSULT TRAE [place] NEW/ESTAB PT 80 MIN 3D 08727 [place] M[place]HE, RENDERING 9 MEDICAL DRAKE P IMAGING W/INTERP& ASSOCIATE POSTPROC S DIFF WORK STATION RADEX 99871 ARIZONA MECHE, ABDOMEN 9 MEDICAL DRAKE P COMPL IMAGING W/DCBTS&/ [place] [address] ARIZONA MECHE, ABDOMEN 9 MEDICAL DRAKE P W/CONTRAS IMAGING T ASSOCIATE MATERIAL S CT PELVIS 37131 ARIZONA MECHE, 9 MEDICAL DRAKE P W/CONTRAS IMAGING T ASSOCIATE MATERIAL S INITIAL 12085 [facility] 9 DON R DON R CARE/DAY 50 [place] [address] [facility]ONS INFUSION 9 [facility] THERAPY/P INC INC ROPHYLAXI S /DX 1ST TO 1 HR BLOOD 86534 [facility] COUNT 9 [facility] COMPLETE INC INC AUTO&AUTO DIFRNTL WBC BASIC 03709 [facility] METABOLIC 9 [facility] PANEL INC INC CALCIUM TOTAL URNLS DIP 81729 [facility] 9 [facility] STICK/TAB INC INC LET REAGENT AUTO MICROSCOP Y CT PELVIS 04522 [facility] W/O 9 [facility] [place] [address] [facility] INFUSION 9 [facility] THER INC INC PROPH ADDL SEQUENTIA [place] [address] [address] [facility] ABDOMEN 9 [facility] W/O INC INC CONTRAST MATERIAL 3D 70934 [facility] L[facility]ONS RENDERING 9 [facility] INC INC W/INTERP& POSTPROC DIFF WORK STATION RADEX 39079 [facility] ABDOMEN 9 [facility] COMPL INC INC W/DCBTS&/ ERC VIEWS CHIROPRAC 45835 [place]NA BELL, TIC 9 FAMILY MORGAN C MANIPLTV CHIROPRAC TX TIC EXTRASPIN AL 1/> REGION APPL 86878 [place] BELL, MODALITY 9 FAMILY MORGAN C 1/> AREAS CHIROPRAC TRACTION TIC MECHANICA L THERAPEUT 28883 [place] EBLL, IC PX 1/> 9 FAMILY MORGAN C AREAS CHIROPRAC EACH 15 TIC MIN EXERCISES CHIROPRAC 03163 [place] BELL, TIC 9 FAMILY MORGAN C MANIPULAT CHIROPRAC KEREN TX TIC SPINAL 3-4 REGIONS APPL 27094 [place] BELL, MODALITY 9 FAMILY MORGAN C 1/> AREAS CHIROPRAC ELEC TIC STIMJ EA 15 MIN APPL 95489 [place] BELL, MODALITY 9 FAMILY MORGAN C 1/> AREAS CHIROPRAC ELEC TIC STIMJ EA 15 MIN CHIROPRAC 15885 [place] BELL, TIC 9 FAMILY MORGAN C MANIPULAT CHIROPRAC KEREN TX TIC SPINAL 3-4 REGIONS THERAPEUT 12096 [place] BELL, IC PX 1/> 9 FAMILY MORGAN C AREAS CHIROPRAC EACH 15 TIC MIN EXERCISES APPL 23546 [place] BELL, MODALITY 9 FAMILY MORGAN C 1/> AREAS CHIROPRAC TRACTION TIC MECHANICA L CHIROPRAC 00147 [place] BELL, TIC 9 FAMILY MORGAN C MANIPLTV CHIROPRAC TX TIC EXTRASPIN AL 1/> REGION CHIROPRAC 17128 [place] BELL, TIC 9 FAMILY MORGAN C MANIPLTV CHIROPRAC TX TIC EXTRASPIN AL 1/> REGION APPL 62491 [place] BELL, MODALITY 9 FAMILY MORGAN C 1/> AREAS CHIROPRAC TRACTION TIC MECHANICA L THERAPEUT 55392 JAN BELL, IC PX 1/> 9 FAMILY MORGAN C AREAS CHIROPRAC EACH 15 TIC MIN EXERCISES APPL 70758 [place] BELL, MODALITY 9 FAMILY MORGAN C 1/> AREAS CHIROPRAC ELEC TIC STIMJ EA 15 MIN CHIROPRAC 77285 [place] BELL, TIC 9 FAMILY MORGAN C MANIPULAT CHIROPRAC KEREN TX TIC SPINAL 3-4 REGIONS CHIROPRAC 16995 CYNTHIDARIEL BELL, TIC 9 FAMILY MORGAN C MANIPULAT CHIROPRAC KEREN TX TIC SPINAL 3-4 REGIONS RADEX 05250 CYN[place]NA BELL, SPINE 9 FAMILY MORGAN C CERVICAL CHIROPRAC 2 OR 3 TIC VIEWS APPL 95554 [place] BELL, MODALITY 9 FAMILY MORGAN C 1/> AREAS CHIROPRAC TRACTION TIC MECHANICA L SELF-CARE 08631 JAN BELL, /HOME 9 FAMILY MORGAN C MGMT CHIROPRAC TRAINING TIC EACH 15 MINUTES CHIROPRAC 23916 CY[place]NA BELL, TIC 9 FAMILY MORGAN C MANIPLTV CHIROPRAC TX TIC EXTRASPIN AL 1/> REGION RADEX 94818 CYN[place]NA BELL, SPINE 9 FAMILY MORGAN C LUMBOSACR CHIROPRAC AL 2/3 TIC VIEWS CUL BACT 86421 [facility] XCPT 9 [facility] URINE INC INC BLOOD/STO OL AEROBIC ISOL CUL BACT 85135 [facility] AEROBIC 9 [facility] ADDL INC INC METHS DEFINITIV E EA ISOL SUSCEPTIB 18692 SERENA LYONS LTY STDY 9 [facility] ANTIMICRB INC INC IAL MICRO/AGA R DILUTJ BLOOD 03483 FAMILY ROSARIO, COUNT 9 CARE SADNRA T COMPLETE ASSOCIATE AUTO&AUTO S DIFRNTL WBC Encounters Encounter Start End Date Code Location Performer Type Date OFFICE 19779 [facility] ART OUTPATIEN 7 7 [facility] VISIT MEDICAL 10 G MINUTES OFFICE 72613 [facility] ART CONSULTAT 7 7 [facility] ION MEDICAL NEW/ESTAB G PATIENT 60 MIN EMERGENCY 13758 [facility] DEPT 7 7 PHYSICIAN VISIT [facility], [facility] H[facility]& THREAT [facility] - 7 7 [facility] OUTPATIEN INC T EMERGENCY 06303 [facility] 7 7 [facility] MODERATE SEVERITY [facility] - 6 6 [facility] - 6 6 [facility] OUT[facility] INC T OFFICE 65045 [facility] FRYMAN OUTPATIEN 6 6 PHYSICIAN T VISIT S GROUP 15 MINUTES HOSPITAL [facility] - 6 6 [facility] OUTPATIEN INC T OFFICE 25959 [facility] STONE JEROD OUTPATIEN 6 6 PHYSICIAN T VISIT S GROUP 15 MINUTES HOSPITAL S[facility] - 6 6 [facility] OUTPATIEN INC T OFFICE 65197 [facility] STONE JEROD OUTPATIEN 6 6 PHYSICIAN T VISIT S GROUP 25 MINUTES HOSPITAL [facility] - 6 6 [facility] OUTPATIEN INC T OFFICE 75504 [facility] FRYMAN OUTPATIEN 6 6 PHYSICIAN EUG T VISIT S GROUP 15 MINUTES OFFICE 84272 [facility] STONE JEROD OUTPATIEN 6 6 PHYSICIAN T VISIT S GROUP 25 MINUTES HOSPITAL [facility] - 6 6 [facility] OUTPATIEN INC T OFFICE 50486 [facility] LEN OUTPATIEN 6 6 PHYSICIAN MAT T NEW 45 S GROUP MINUTES OFFICE 01473 [facility] FRYMAN OUTPATIEN 6 6 PHYSICIAN EUG T VISIT S GROUP 15 MINUTES HOSPITAL [facility] - 6 6 [facility] OUTPATIEN INC T OFFICE 97172 [facility] OUTPATIEN 2 2 DON DON T VISIT 15 MINUTES OFFICE 11004 DOMINIQUE DOMINIQUE OUTPATIEN 2 2 R H R H T VISIT 15 MINUTES EMERGENCY 63337 [facility] 2 2 [facility] DEPARTMEN INC T VISIT LOW/MODER SEVERITY EMERGENCY 25946 AKILA WILBURN 2 2 NOLAN NOLAN DEPARTMEN T VISIT HIGH/URGE NT SEVERITY [facility]OSPITAL [facility] - 2 2 [facility] OUTPATIEN INC T OFFICE 60353 [facility] HANEY OUTPATIEN 2 2 DON DON T VISIT 15 MINUTES OFFICE 55543 BEHZAD BEHZAD OUTPATIEN 2 2 LESLY LESLY T NEW 30 MINUTES OFFICE 10258 [facility] HANEY OUTPATIEN 2 2 DON DON T VISIT 15 MINUTES OFFICE 06192 [facility] HANEY OUTPATIEN 2 2 DON DON T VISIT 15 MINUTES OFFICE 52823 FAMILY DOMINIQUE OUTPATIEN 2 2 CARE R H T VISIT ASSOCIATE 15 S MINUTES OFFICE 27395 [facility] HANEY OUTPATIEN 2 2 DON DON T VISIT 15 MINUTES OFFICE 04965 [facility] HANEY OUTPATIEN 1 1 DON DON T VISIT 15 MINUTES OFFICE 76638 [facility]ANEY OUTPATIEN 1 1 DON DON T VISIT 25 MINUTES OFFICE 89450 [facility] HANEY OUTPATIEN 1 1 DON DON T VISIT 15 MINUTES OFFICE 66480 [facility] HANEY OUTPATIEN 1 1 DON DON T VISIT 15 MINUTES OFFICE 73576 [facility] OUTPATIEN 1 1 DON DON T VISIT 15 MINUTES OFFICE 48141 [facility] OUTPATIEN 1 1 DON DON T VISIT 15 MINUTES OFFICE 17767 [facility] OUTPATIEN 1 1 DON DON T VISIT 15 MINUTES OFFICE 89473 [facility] OUTPATIEN 1 1 DON DON T VISIT 15 MINUTES EMERGENCY 47552 [facility] 1 1 [facility] DEPARTMEN INC T VISIT HIGH/URGE NT SEVERITY [facility]OSPITAL [facility] - 1 1 [facility] OUTPATIEN INC T OFFICE 48142 LYNDON LUQUES OUTPATIEN 1 1 DON DON T VISIT 15 MINUTES OFFICE 42299 [facility] LUQUES OUTPATIEN 0 0 DON DON T VISIT 15 MINUTES OFFICE 05218 [facility] LUQUES OUTPATIEN 0 0 DON DON T VISIT 15 MINUTES HOSPITAL [facility] - 0 0 [facility] OUTPATIEN INC T EMERGENCY 52001 YOVANY WILBURN 0 0 EMERGENCY [facility] DEPARTMEN SERVICES T VISIT HIGH/URGE NT SEVERITY [facility]OSPITAL [facility] - 0 0 [facility] OUTPATIEN INC T EMERGENCY 01470 [facility] 0 0 [facility] DEPARTMEN INC T VISIT MODERATE SEVERITY PERIODIC 02253 LYNDON HANEY PREVENTIV 0 0 DON DON E MED EST PATIENT OFFICE 27752 HANEY, HANEY, OUTPATIEN 0 0 DON R DON R T VISIT 15 MINUTES EMERGENCY 71178 YOVANY WILBURN, 0 0 EMERGENCY [facility] DEPARTMEN SERVICES T VISIT HIGH/URGE ASSOCIATE NT S SEVERITY EMERGENCY 10809 [facility] 0 0 [facility] DEPARTMEN INC T VISIT MODERATE SEVERITY HOSPITAL [facility] - 0 0 [facility] OUTPATIEN [facility] SERENA - 0 0 [facility] OUTPATIEN [facility] T OFFICE 26530 LYNDON HANEY OUTPATIEN 0 0 DON R DON R T VISIT 15 MINUTES OFFICE 86299 HANEYLYNDON MEDRANO OUTPATIEN 0 0 DON R DON R T VISIT 15 MINUTES OFFICE 42024 [facility] 0 0 FAMILY JOSE MARIA H T VISIT CHIROPRAC 15 TIC MINUTES HOSP[facility] [place] [address] [facility] [place] [address] 9 Y INPATIENT HOSPITAL OFFICE 42433 S ANGEL DOLAN 9 9 NURSE NORMAN JAFFE/ESTAB NER GROUP PATIENT 60 MIN OFFICE 56019 L[facility]NDON HANEY OUTPATIEN 9 9 DON R DON R T VISIT 15 MINUTES HOSPITAL SERE[facility] - 9 9 [facility] INPATIENT INC EMERGENCY 11274 YOVANY DE LA [facility]UENT[facility] DEPT 9 9 EMERGENCY III, VISIT SERVICES DYLON HIGH SEVERITY& ASSOCIATE THREAT S FUNCJ OFFICE 76789 LYNDON HANEY OUTPATIEN 9 9 DON R DON R T VISIT 15 MINUTES OFFICE 05748 L[facility]ON HANEY OUTPATIEN 9 9 DON R DON R T VISIT 15 MINUTES HOSPITAL [facility] - 9 9 [facility] OUTPATIEN INC T EMERGENCY 19138 [facility]ERE[facility] 9 9 [facility] DEPARTMEN INC T VISIT HIGH/URGE NT SEVERITY EMERGENCY 18441 YOVANY WILBURN, DEPT 9 9 EMERGENCY MARITA S VISIT SERVICES HIGH SEVERITY& ASSOCIATE THREAT S FUNCJ OFFICE 00403 L[facility]ON HANEY OUTPATIEN 9 9 DON R DON R T VISIT 15 MINUTES OFFICE 04649 [facility] HANEY OUTPATIEN 9 9 DON R DON R T VISIT 15 MINUTES OFFICE 07698 DAE MENDEZ 9 9 FAMILY MORGAN C T NEW 20 CHIROPRAC MINUTES TIC OFFICE 77387 [facility] HANEY OUTPATIEN 9 9 DON R DON R T VISIT 15 MINUTES HOSPITAL [facility] - 9 9 [facility] OUTPATIEN INC T OFFICE 78863 [facility] HANEY OUTPATIEN 9 9 DON R DON R T VISIT 15 MINUTES OFFICE 64345 FAMILY DAE PONCE 9 9 CARE SANDRA T T VISIT ASSOCIATE 25 S MINUTES OFFICE 65373 [facility] HANEY OUTPATIEN 9 9 DON R DON R T VISIT 15 MINUTES OFFICE 55611 L[facility]ON HANEY OUTPATIEN 9 9 DON R DON R T NEW 20 MINUTES
--- OUTSIDE RECORDS SUMMARY | 2017-01-25 14:26 | External Medical Summary Rpt ---
Demographics Preferred Language Greek Marital Status Unknown Mosque Affiliation Unknown Race Unknown Ethnic Group Unknown Author Author , Organization [employer] Address Unknown Phone Unavailable Purpose Continuity of Care Document - through 2016 Immunization No patient found.
--- OUTSIDE RECORDS SUMMARY | 2017-01-25 14:26 | External Medical Summary Rpt ---
Demographics Preferred Language Bolivian Marital Status Unknown Yarsanism Affiliation Unknown Race Unknown Ethnic Group Unknown Author Author , Organization [employer] Address Unknown Phone Unavailable Purpose Continuity of Care Document - through 2016 Immunization No patient found.
--- OUTSIDE RECORDS SUMMARY | 2017-01-25 14:26 | External Medical Summary Rpt ---
Author Author CY Chase, [employer] Organization [employer] Address Unknown Phone Unavailable
[2017-01-25 14:55] LABS: HEMOGLOBIN 13.9 g/dL (14.1-18.0); LYMPH # 1.8 K/mm3 (0.7-4.5); LYMPH % 27.7 % (10-50)
[2017-01-25 18:51] VITALS: BP 131/92
== END 2017-01-25 18:52 | disposition short-term general hospital (02) ==
LOC: ER 13:05
PROVIDERS: Emergency Medicine
DX: R20.0 Anesthesia of skin (principal)

== ENCOUNTER → 2017-08-14 | Outpatient (CLI) | payer MEDICAID ==
[~2017-08-14] MED LIST changes: +APAP/HYDROCODON1 TA9 PO; +MOTRIN 600MG.600 MG PO; +ZOLPIDEM 10MG T10 MG PO
== END ==
LOC: RAD 16:25
DX: M25.532 Pain in left wrist (principal); W19.XXXA Unspecified fall, initial encounter